=== PATIENT | male | born 1950 | race Caucasian/White ===

== ENCOUNTER → 2017-06-04 11:27 | Outpatient (CLI) | payer MEDICARE, OTHER, SELFPAY ==
--- NOTE | 2017-06-04 11:37 | XR_ITS ---
XR chest 2V HISTORY: Bronchitis ITS.REASON: HX PNEUMOTHORAX ORDERING PHYSICIAN: Marybeth Soria MD PATIENT AGE: 67 years COMPARISON: None available FINDINGS: The cardiomediastinal silhouette and pulmonary vascularity are within normal limits. No lobar consolidation or collapse. There is some coarsening of the bronchovascular markings in the perihilar region on the left chronic in nature. No acute bony anomalies. Degenerative changes are present in the thoracic spine. IMPRESSION: Chronic coarsening of the bronchovascular markings, no acute finding
== END ==
PROVIDERS: PCP Family Medicine; Visit Provider Family Medicine
DX: Z87.09 Personal history of other diseases of the respiratory system (principal)
CPT/HCPCS: 71046

== ENCOUNTER → 2019-04-07 15:49 | Outpatient (CLI) | payer MEDICARE, SELFPAY ==
--- NOTE | 2019-04-07 16:19 | XR_ITS ---
PROCEDURE: XR CHEST 2V CLINICAL HISTORY: FORMER SMOKER,RECENT BRONCHITIS Bronchitis, cough, smoker COMPARISON: CXR CHEST(2 VIEWS-NOT PORTABLE) from 10/19/2015 CXR CHEST(2 VIEWS-NOT PORTABLE) from 11/02/2015 CXR CHEST(2 VIEWS-NOT PORTABLE) from 11/08/2015 CXR2V XR chest 2V from 06/04/2017 FINDINGS: The cardiomediastinal silhouette and pulmonary vascularity are within normal limits. COPD with coarsening of the bronchovascular markings. Interstitial markings are somewhat more prominent on the left suggesting wispy infiltrate in the left upper lobe Degen degenerative changes thoracic spine. IMPRESSION: COPD with wispy left upper lobe infiltrate. Dictated by: Toribio Hunter MD 04/13/2019 11:38 Electronically signed by Toribio Hunter MD in [place] 04/13/2019 11:38
== END ==
PROVIDERS: PCP Family Medicine; Visit Provider Family Medicine
DX: Z01.818 Encounter for other preprocedural examination (principal)
CPT/HCPCS: 71046

== ENCOUNTER → 2019-04-15 13:54 | Outpatient (CLI) | payer MEDICARE, OTHER, SELFPAY ==
--- NOTE | 2019-04-15 13:57 | CT_ITS ---
PROCEDURE: CT CHEST WO/W CON CLINCAL INDICATION: ABNORMAL CXR, LUNG INFECTION Former smoker, bronchitis, cough COMPARISON: No exams were available for comparison TECHNIQUE: IV Contrast: 75ml Optiray 350 Axial images obtained with sagittal and coronal reformats. All CT scans at the facility use one or more dose reduction, viz: automated exposure control, ma/kV adjustment per patient size (including targeted exams where dose is matched to indication, i.e. head), or iterative reconstruction technique. FINDINGS: HEART,AORTA,PULMONARY ARTERIES coronary artery calcifications MEDIASTINAL AND HILAR STRUCTURES: There is increased soft tissue density in the hilar regions on both sides in the peribronchial region. This may only be related to small lymph nodes. Follow-up however is suggested to confirm stability. LUNGS: There are scattered heterogeneous areas of patchy infiltrates in both upper lobes with a somewhat reticular pattern. Small pneumatocele is present in the right middle lobe and there are small pneumatocele is in the right posterior costophrenic sulcus. PLEURAL SPACES: No significant effusion. No evidence of pneumothorax. BONY STRUCTURES: Degenerative changes thoracic spine LYMPH NODES: Mildly prominent perihilar lymph nodes UPPER ABDOMEN: Unremarkable. ADDITIONAL FINDINGS: No other significant abnormalities. IMPRESSION: There are scattered patchy areas of reticular infiltrates in both upper lobes. This could be inflammatory or infectious. Interstitial pneumonitis is considered. Mildly prominent perihilar lymph nodes. Recommend 3 month follow-up to confirm stability. Dictated by: Toribio Hunter MD 04/16/2019 09:19 Electronically signed by Toribio Hunter MD in [place] 04/16/2019 09:19
[2019-04-15 15:32] LABS: Blood Urea Nitrogen 23 mg/dL (7-18); Creatinine,Serum 1.15 mg/dL (0.70-1.30); Estimated Glomerular Filt Rate 64 ml/min (>60); GFR (African American) 77 ML/MIN (>60)
== END ==
PROVIDERS: PCP Family Medicine; Visit Provider Family Medicine
DX: R93.89 Abnormal findings on diagnostic imaging of other specified body structures (principal); J18.9 Pneumonia, unspecified organism
CPT/HCPCS: 36415; 71270; 82565; 84520; Q9967

== ENCOUNTER 2019-06-06 10:02 | Inpatient (IN) ==
--- NOTE | 2019-06-06 10:11 | Emergency Department Note ---
ED Disposition Clinical Impression: Pleuritic chest pain, Failure of outpatient treatment, SIRS (systemic inflammatory response syndrome) Bilateral pneumonia Qualifiers: Pneumonia type: due to unspecified organism Lung location: upper lobe of lung Qualified Code(s): J18.9 - Pneumonia, unspecified organism Left lower lobe pneumonia Qualifiers: Pneumonia type: due to unspecified organism Qualified Code(s): J18.9 - Pneumonia, unspecified organism Disposition: Admitted as Observation Condition on Discharge: Fair Additional Instructions: He was admitted to the floor for observation. Under Dr. Celestin service Time of Disposition: 12:27 - Critical Care Critical Care Time: Yes Attestation: On , the high probability of a clinically significant, sudden or life threatening deterioration of the following system(s) required my full and direct attention, intervention and personal management. The time I documented below is in addition to time spent performing reported procedures but includes the follo wing listed in this critical care notation. Total Critical Care Time: 30 Vital system(s) involved:: Respiratory Failure My critical care processes included: Assessment & monitoring of V/S, Initial and Re-exams, Data Review/Interpretation, Coordinating Care, Medication Orders and management, Documentation Medical Decision Making - Jerel Inquiry Pt receiving controlled substance: No Vital Signs: 06/06/19 10:03 06/06/19 11:05 06/06/19 11:11 Temperature 98.3 F 99.5 F Temperature Source Oral Oral Pulse Rate [Right Brachial] 87 84 Respiratory Rate 18 20 Blood Pressure [Right Arm] 180/80 H 142/82 H Blood Pressure Mean [Right Arm] 113 102 Blood Pressure Source [Right Arm] Automatic Cuff Blood Pressure Position [Right Arm] Sitting 02 Sat by Pulse Oximetry 96 96 Oxygen Delivery Method Room Air 06/06/19 11:24 Temperature 100.4 F H Temperature Source Oral Pulse Rate [Right Brachial] 82 Respiratory Rate 18 Blood Pressure [Right Arm] 138/91 H Blood Pressure Mean [Right Arm] 106 Blood Pressure Source [Right Arm] Blood Pressure Position [Right Arm] 02 Sat by Pulse Oximetry 96 Oxygen Delivery Method - Lab Data Lab results reviewed: Yes: I reviewed the patient's lab results. Lab Results 06/06/19 10:05: WBC 13.2 H, RBC 4.22 L, Hgb 13.6 L, Hct 42.3, MCV 100.2 H, MCH 32.1 H, MCHC 32.1, RDW 14.0, Plt Count 262, MPV 7.4, Neut % (Auto) 76.6, Lymph % (Auto) 12.8, Brule % (Auto) 6.9, Eos % (Auto) 3.3, Baso % (Auto) 0.3, Neut # (Auto) 10.1 H, Lymph # (Auto) 1.7, Brule # (Auto) 0.9, Eos # (Auto) 0.4, Baso # (Auto) 0.0 06/06/19 10:05: Sodium 135 L, Potassium 4.0, Chloride 98, Carbon Dioxide 27, Anion Gap 14.0, BUN 16, Creatinine 0.80, Estimated Creat Clear 97, Estimated GFR 96, Est GFR ( Amer) 117, Glucose 121 H, Calcium 9.4, Total Bilirubin 0.8, AST 28, ALT 18, Alkaline Phosphatase 77, Troponin I < 0.01, Total Protein 8.4 H, Albumin 4.5, Globulin 3.9 H, Albumin/Globulin Ratio 1.2 06/06/19 10:30: Influenza Type A Ag Negative, Influenza Type B Ag Negative 06/06/19 10:30: Group A Strep Rapid Negative 06/06/19 11:00: Lactate 1.0 Result diagrams: 06/06/19 10:05 06/06/19 10:05 Orders (Tests/Meds): ED MEDICATIONS Generic Name Dose Route Start Last Admin Trade Name Freq PRN Reason Stop Dose Admin Azithromycin 500 mg/ Sodium 250 mls @ 250 mls/hr 06/06/19 11:00 06/06/19 11:10 Chloride IV 06/20/19 10:59 250 mls/hr Q24H OPAL Administration Protocol Discontinued Medications Generic Name Dose Route Start Last Admin Trade Name Freq PRN Reason Stop Dose Admin Ceftriaxone Sodium 1 gm/ 50 mls @ 100 mls/hr 06/06/19 10:52 06/06/19 11:00 Sodium Chloride IV 06/06/19 11:21 100 mls/hr ONCE STA Administration Protocol Ioversol 70 ml 06/06/19 10:42 06/06/19 10:43 Rad-Optiray 350 150ml Vial IV 06/06/19 10:43 70 ml ONCE ONE Administration Sodium Chloride 50 ml 06/06/19 10:42 06/06/19 10:43 Rad-Ns 50ml Vial IV 06/06/19 10:43 50 ml ONCE ONE Administration Sodium Chloride 10 ml 06/06/19 10:42 06/06/19 10:43 Rad-Saline Flush 10ml Syringe IV 06/06/19 10:43 10 ml ONCE ONE Administration ORDERS Category Date Time Status XR ribs LT 2V Stat Exams 06/06/19 10:12 Taken SARS-CoV-2, MARY Stat Lab 06/06/19 11:53 Ordered Troponin I Q3H Lab 06/06/19 13:15 Ordered Troponin I Q3H Lab 06/06/19 16:15 Ordered Troponin I Q3H Lab 06/06/19 19:15 Ordered Troponin I Q3H Lab 06/06/19 22:15 Ordered Blood Culture Stat Micro 06/06/19 11:00 Received Strep Screen Confirmation Stat Micro 06/06/19 10:30 Received - CT Data CT Scan: Chest Time Received: 12:[address] Reviewed: Yes: I have reviewed the patient's CT results Findings Narrative: CT ANGIO CHEST CLINCIAL INDICATION: r/o PE Left anterior chest pain former smoker, bronchitis, cough COMPARISON: CT CHEST WO/W CON from 04/15/2019 TECHNIQUE: IV Contrast: 70ML OPTIRAY 350 Axial images obtained with sagittal and coronal reformats. All CT scans at the facility use one or more dose reduction, viz: automated exposure control, ma/kV adjustment per patient size (including targeted exams where dose is matched to indication, i.e. head), or iterative reconstruction technique. FINDINGS: HEART AND MEDIASTINAL STRUCTURES: Pulmonary arterial opacification is somewhat limited. No definite evidence of pulmonary embolus. No evidence of aortic aneurysm or dissection. There are coronary artery calcifications. There are mildly prominent right hilar lymph nodes not significantly changed. LUNGS AND PLEURAL SPACES: There remains scattered mosaic ground-glass attenuation with scattered areas of septal thickening. These findings appear similar compared to the previous exam in the upper lobes. Scattered pneumatocele is a are also noted as before. There is infiltrate in the left lung base posteriorly which has developed in the interval. The BONY STRUCTURES: Degenerative changes of the spine. No lytic or blastic process. No evidence of acute rib fracture UPPER ABDOMEN: There is high-grade stenosis of the ostium of the celiac artery of greater than 50 percent as well as atheromatous calcific plaque of the superior mesenteric artery ADDITIONAL FINDINGS: No other significant abnormalities. IMPRESSION: 1. Chronic interstitial lung disease with scattered areas of mosaic ground-glass attenuation in the upper lobes with septal thickening and scattered bulla which are not significantly changed. 2. Left lower lobe pneumonia posteriorly. 3. 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 - Physician Consults Physician Consulted: Dr. Webster Time: 12:15 Reason -: Admission, Pt condition Comment/Response: Discussed with Dr. Webster regarding the patient and planned to get the patient admitted to the droplet isolation in negative pressure room for possible coronavirus 19 suspected pneumonitis with acute dyspnea and failure of outpatient management. - Reevaluation(s) Time: 11:00 Reevaluation #1: Patient seems to have spiking of his temperature. His temperature went up to 100.4 degrees while here in the emergency department. The patient was kept in AirDrop precautions. He was wearing mask. Reevaluation #2: Patient has been stable while in the emergency department. He still has acute pleuritic type chest pain on deep inspiration. We discussed the lab findings and the x-ray as well as CT scan finding with the patient. Plan to admit the patient for bilateral pneumonia with failed outpatient management. Plan to keep the patient in isolation for possible coronavirus 19 suspicion. General Adult HPI - General Chief complaint: PAIN Stated complaint: LT RIB PAIN Time Seen by Provider: 06/06/19 10:10 Mode of Arrival: Wheelchair Limitations: No Limitations Description of Symptoms (Recalled from ER Triage Doc. by RN): PT C/O LT RIB PAIN UPON INSPIRATION SINCE YESTERDAY. PT ADVISES THAT THE PAIN HAS BEEN CONSTANT AND IS ONLY WITH INSPIRATION. PT ALSO ADVISES THAT HE HAS BRONCHITIS AND HAS HAD A COUGH. PT DENIES FEVER OR SOA. - History of Present Illness HPI narrative: Pt presents to the ER for having pain in the lower left chest and the lung area for the last 2 days. She states every time he takes a deep breath it has been hurting him on the left lower chest wall since early this morning. The pain has been getting worse. Denies having any fever. He is not able to take deep breaths due to the pain in the left lower chest wall everytime he is taking deep inspiration. He complains of shortness of breath due to the same. He states he has been on medication for bronchitis for the last 7 to 10 days. He denies being outside [place]. He denies being in contact with coronavirus patient directly. He has been to [facility] for right hip replacement after which he was discharged home in 3 days . He was on home physical and occupational therapy for 2 weeks. He has been able to ambulate for the last 7 to 10 days. Patient denies having fever or chills. Having nausea or vomiting. - Related Data Home Medications Medication Instructions Recorded Confirmed No Known Home Medications 06/06/19 06/06/19 Allergies Allergy/AdvReac Type Severity Reaction Status Date / Time No Known Allergies Allergy Verified 06/06/19 10:09 [facility] History - Hepatitis A Screen Drug use history?: No High risk sexual behaviors?: No History of sexually transmitted infection?: No Currently employed?: No Childcare worker?: No Do you have indoor plumbing?: Yes Do you have electricity?: Yes Attestation statement:: This patient has been screened for Hepatitis A risk factors. I have reviewed the patient's past medical history: Yes Medical History: Denies:: Diabetes Mellitus Type 1, Diabetes Mellitus Type 2 - Social History Smoking Status: Former smoker Tobacco Type: cigarettes #Yrs smoked (if former smoker): 2,007 Smoking End Date: 04/29/2006 Alcohol Intake: never Occupational Status: other ROS Obtained: Yes All systems reviewed & no additional complaints Physical Exam - General General appearance: alert, in no apparent distress - Head Head exam: atraumatic, normocephalic, normal inspection - Eye Eye exam: Present: normal appearance, PERRL, EOMI - ENT ENT exam: Present: normal exam, normal oropharynx, mucous membranes moist, normal external ear exam, other (bilateral tympanic membrane congested and bulging.) - Neck Neck exam: Present: normal inspection, full ROM, trachea midline - Chest Chest inspection: Present: normal inspection, symmetric chest wall rise. Absent: tenderness - Respiratory Respiratory exam: Present: other (Mild degree of coarse breath sounds bilaterally. Worse in the lower zone than the upper part of the lungs. Patient is not able to take deep breaths due to persistent pain on inspiration. He seems to have pleurisy type pain on the left lower zone lung field.). Absent: respiratory distress - Expanded Respiratory Exam Location: Lower: rhonchi (Bilateral coarse rhonchi.) - Cardiovascular Cardiovascular exam: Present: regular rate, normal rhythm. Absent: JVD - Abdominal Exam Abdominal exam: Present: soft, normal bowel sounds. Absent: distention, tenderness, guarding - Extremities Exam Extremities exam: Present: normal inspection, full ROM, normal capillary refill. Absent: calf tenderness - Back Exam Back exam: Present: normal inspection, full ROM. Absent: tenderness - Neurological Exam Neurological exam: Present: alert, oriented X3, CN II-XII intact - Psychiatric Psychiatric exam: Present: normal affect, normal mood - Skin Skin exam: Present: warm, dry, intact, normal color
[2019-06-06 10:20] LABS: Chloride 98 mmol/L (98-107); Sodium 135 mmol/L (136-145)
[2019-06-06 10:23] LABS: Alanine Aminotransferase 18 U/L (12-78); Albumin Level 4.5 g/dl (3.5-5.0); Albumin/Globulin Ratio 1.2 (1.1-1.8); Alkaline Phosphatase 77 U/L (38-126); Aspartate Amino Transferase 28 U/L (17-59); Bilirubin,Total 0.8 mg/dl (0.2-1.3); Blood Urea Nitrogen 16 mg/dl (9-20); Calcium 9.4 mg/dl (8.4-10.2); Carbon Dioxide 27 mmol/L (22.0-30.0); Globulin 3.9 g/dL (1.3-3.2); Glucose 121 mg/dl (74-100); Total Protein,Serum 8.4 g/dl (6.3-8.2)
[2019-06-06 10:28] LABS: Basophils % 0.3 % (0.1-2.0); Eosinophils # 0.4 K/mm3 (0.0-0.4); Eosinophils % 3.3 % (0.1-12.0); Hematocrit 42.3 % (42.0-52.0); Hemoglobin 13.6 g/dL (14.1-18.0); Lymphocytes # 1.7 K/mm3 (0.7-4.5); Lymphocytes % 12.8 % (10-50); Mean Corpuscular HGB Conc 32.1 g/dL (31.8-35.4); Mean Corpuscular Volume 100.2 fl (80-94); Mean Platelet Volume 7.4 fl (7.4-10.4); Monocytes # 0.9 K/mm3 (0.1-1.0); Monocytes % 6.9 % (1.7-9.3); Neutrophils # 10.1 K/mm3 (1.8-7.8); Neutrophils % 76.6 % (37.0-80.0); Platelet Count 262 K/mm3 (142-424); Red Blood Count 4.22 M/mm3 (4.60-6.20); White Blood Count 13.2 K/mm3 (4.8-10.8)
[2019-06-06 12:33] LABS: Coronavirus 229E Not Detected (NotDetected); Coronavirus NL63 Not Detected (NotDetected); Coronavirus OC43 Not Detected (NotDetected); Coronovirus HKU1,PCR Not Detected (NotDetected)
[2019-06-06 12:44] LABS: C-Reactive Protein 71.3 mg/L (0-4)
--- NOTE | 2019-06-06 17:00 | History & Physical Report ---
*Admission Date: 06/06/19 *Chief complaint: SOA, cough, fever *History of present illness: Mr. Khan is a 69-year-old male with recent right hip arthroplasty the end of April who presented to his primary care provider today due to acute onset over the past 2 days of left-sided chest pain with deep inspiration. When he presented to the ER he was complaining of pain in the left lower anterior chest with deep inspiration and intermittent cough that is somewhat productive. Work- up consisted of CT chest, and labs with normal troponin, leukocytosis, and CT findings of left lower lobe along with patchy bilateral groundglass opacifications consolidation, and upper lobes. ER initially contacted medicine for admission with the additional information of the patient having failed 7 to 10 days of treatment for bronchitis prior to presenting today. Reportedly had negative rapid flu and strep swabs. Patient was admitted with an abundance of concern for potential respiratory infection including coronavirus 19. Comprehensive respiratory panel was performed, barry test obtained in the ED. Patient admitted to negative pressure room. After assessing the patient once he got to the floor, history obtained was somewhat different. Nursing and physician staff entered room and full PPE including face shield, in 95 mask, protective gown, and gloves. Dedicated stethoscope used for exam. Patient sitting comfortably in bed on 2 L nasal cannula. He reports having his stable cough that he has had for years. Denies any recent fever other than fever present in the ER today. States his symptoms began 2 days ago with pain on deep inspiration. Denies having seen a provider for respiratory symptoms in the past 1 to 2 weeks. Denies having been on any medications for bronchitis in many years. [facility] History I have reviewed the patient's past medical history: Yes Medical History: Denies:: Diabetes Mellitus Type 1, Diabetes Mellitus Type 2 *Have you ever received a pneumonia vaccine?: Yes *Have you received a flu vaccine this season?: Yes Laterality Cases: Bilateral: Total Knee Replacement - *Social History Smoking Status: Former smoker Tobacco Type: cigarettes #Yrs smoked (if former smoker): 2,007 Smoking End Date: 2006 Alcohol Intake: never *Occupational Status:: disabled Housing: house Household Members: spouse, family *Travel in the last 8 weeks: None Family Hx:: Cancer, Coronary Artery Disease, Hypertension Review of Systems - Review of Systems Review of systems:: pertinent systems reviewed and negative unless documented below (14 point review of systems performed, pertinent positives and negatives as per HPI) Meds Home Medications Medication Instructions Recorded Confirmed Type No Known Home Medications 06/06/19 06/06/19 History Allergies Allergy/AdvReac Type Severity Reaction Status Date / Time No Known Allergies Allergy Verified 06/06/19 10:09 Exam Vital signs and Labs for Last 24 Hours: Temp Pulse Resp BP Pulse Ox 99.2 F 89 16 148/74 H 98 06/06/19 16:45 06/06/19 16:45 06/06/19 16:45 06/06/19 16:45 06/06/19 16:45 Laboratory Results - last 24 hr 06/06/19 10:05: WBC 13.2 H, RBC 4.22 L, Hgb 13.6 L, Hct 42.3, MCV 100.2 H, MCH 32.1 H, MCHC 32.1, RDW 14.0, Plt Count 262, MPV 7.4, Neut % (Auto) 76.6, Lymph % (Auto) 12.8, Major % (Auto) 6.9, Eos % (Auto) 3.3, Baso % (Auto) 0.3, Neut # (Auto) 10.1 H, Lymph # (Auto) 1.7, Major # (Auto) 0.9, Eos # (Auto) 0.4, Baso # (Auto) 0.0 06/06/19 10:05: Sodium 135 L, Potassium 4.0, Chloride 98, Carbon Dioxide 27, Anion Gap 14.0, BUN 16, Creatinine 0.80, Estimated Creat Clear 97, Estimated GFR 96, Est GFR ( Amer) 117, Glucose 121 H, Calcium 9.4, Total Bilirubin 0.8, AST 28, ALT 18, Alkaline Phosphatase 77, Troponin I < 0.01, Total Protein 8.4 H, Albumin 4.5, Globulin 3.9 H, Albumin/Globulin Ratio 1.2 06/06/19 10:05: C-Reactive Protein 71.3 H, NT-Pro-B Natriuret Pep 74.7 06/06/19 10:05: ESR 48 H 06/06/19 10:30: Influenza Type A Ag Negative, Influenza Type B Ag Negative 06/06/19 10:30: Group A Strep Rapid Negative 06/06/19 11:00: Lactate 1.0 06/06/19 11:53: Chlamy pneumoniae PCR Not detected, Adenovirus (PCR) Not detected, B. pertussis DNA (PCR) Not detected, Coronavirus OC43 (PCR) Not detected, Coronavirus HKU1 (PCR) Not detected, Coronavirus 229E (PCR) Not detected, Coronavirus NL63 (PCR) Not detected, Human Metapneumovir PCR Not detected, Influenza A (H1) PCR Not detected, Influ A (H1N1/09) PCR Not detected, Influenza A (H3) PCR Not detected, Influenza Type A (PCR) Not detected, Influenza Type B (PCR) Not detected, M. pneumoniae (PCR) Not detected, Parainfluenza 1 (PCR) Not detected, Parainfluenza 2 (PCR) Not detected, Parainfluenza 3 (PCR) Not detected, Parainfluenza 4 (PCR) Not detected, RSV (PCR) Not detected, Entero/Rhino (PCR) Not detected I & O for Last 24 hours: Intake & Output 06/03/19 06/04/19 06/05/19 06/06/19 23:59 23:59 23:59 23:59 Intake Total 865 / 865 Output Total 500 / 500 Balance 365 / 365 Weight 97.2 kg - Constitutional no acute distress, obese - *Routine HEENT Exam Head: Present: normocephalic Eye: Present: EOMI, PERRL ENT: Present: mucous membranes moist - *Routine Neck Exam Present: supple. Absent: lymphadenopathy - Routine Chest/Breast/Axilla Exam Comments: Well-healed scar below left pectoral muscle - *Routine Respiratory Exam Comments: Clear breath sounds in right lung field, crackles on inspiration and left lower lobe best heard mid axillary line and posterior lung field. No wheeze or rhonchi, exam performed on 2 L nasal cannula - *Routine Cardiovascular Exam Present: RRR - *Routine Abdominal Exam Present: soft, normoactive bowel sounds. Absent: tenderness - *Routine Extremities Exam Absent: cyanosis, clubbing, edema Comments: Right lateral hip with clean dry and intact incision from previous surgery, approximately 6 inches in length - *Routine Skin Exam Present: warm. Absent: rash - *Routine Neurological Exam Present: alert, oriented X3 Assessment and Plan (1) Bilateral pneumonia Current visit: Yes Status: Acute Qualifiers: Pneumonia type: due to unspecified organism Lung location: upper lobe of lung Qualified Code(s): J18.9 - Pneumonia, unspecified organism Category: Medical Code(s): J18.9 - Pneumonia, unspecified organism (2) Left lower lobe pneumonia Current visit: Yes Status: Acute Qualifiers: Pneumonia type: due to unspecified organism Qualified Code(s): J18.9 - Pneumonia, unspecified organism Category: Medical Code(s): J18.9 - Pneumonia, unspecified organism (3) Pleuritic chest pain Current visit: Yes Status: Acute Category: Medical Code(s): R07.81 - Pleurodynia (4) Sepsis Current visit: Yes Status: Acute Category: Medical Code(s): A41.9 - Sepsis, unspecified organism (5) HCAP (healthcare-associated pneumonia) Current visit: Yes Status: Acute Category: Medical Code(s): J18.9 - Pneumonia, unspecified organism - Assessment and plan all Dx Assessment and Plan for all problems:: 69-year-old gentleman with a recent hip replacement less than a month ago who presented to the ER with 2 days of worsening pleuritic chest pain, development of fever today, shortness of breath. Imaging and labs consistent with lobar pneumonia. Imaging also consistent however with some bilateral patchy upper lobe groundglass opacities. Image review shows that these have been present before though history is not clear based on what was communicated to admitting service from ER versus patient. Currently has coronavirus 19 test pending. We will continue to keep patient on isolation. At this time we will treat him as though he is a healthcare acquired pneumonia. Additionally have started prophylactic Lovenox given risk for DVT with recent arthroplasty. Monitor for improvement over the next 24 to 48 hours with IV antibiotics. If patient's fever resolves, is able to transition oral antibiotics, and has no further decompensation of his respiratory status, will meet criteria for discharge home. Further management such as a self-isolation, quarantine, other considerations for medications pending coronavirus test results. At this time continues to require inpatient management. Regular diet. Ambulate as tolerated. Aggressive pulmonary toilet, provided with incentive spirometer
[2019-06-07 05:43] LABS: Basophils % 0.2 % (0.1-2.0); Eosinophils # 0.3 K/mm3 (0.0-0.4); Eosinophils % 2.4 % (0.1-12.0); Hematocrit 36.9 % (42.0-52.0); Hemoglobin 12.3 g/dL (14.1-18.0); Lymphocytes # 1.3 K/mm3 (0.7-4.5); Lymphocytes % 10.7 % (10-50); Mean Corpuscular HGB Conc 33.3 g/dL (31.8-35.4); Mean Corpuscular Volume 98.9 fl (80-94); Mean Platelet Volume 7.5 fl (7.4-10.4); Monocytes # 0.8 K/mm3 (0.1-1.0); Monocytes % 6.5 % (1.7-9.3); Neutrophils # 9.4 K/mm3 (1.8-7.8); Neutrophils % 80.3 % (37.0-80.0); Platelet Count 209 K/mm3 (142-424); Red Blood Count 3.73 M/mm3 (4.60-6.20); Red Cell Distribution Width 13.9 % (11.5-17.5); White Blood Count 11.7 K/mm3 (4.8-10.8)
[2019-06-07 05:48] LABS: Calcium 8.8 mg/dl (8.4-10.2)
--- NOTE | 2019-06-07 08:01 | Pharmacy Consult Notes ---
[facility] Pharmacy VTE Monitoring - Patient Demographics Admission date: 06/07/19 Report Date: 06/07/19 Time: 08:01 Allergies/Adverse Reactions: Patient Allergies No Known Allergies Allergy (Verified 06/06/19 10:09) Height: 1.8 m Weight: 97.2 kg Patient Problems: Current Active Problems Bilateral pneumonia (Acute) Left lower lobe pneumonia (Acute) Pleuritic chest pain (Acute) Failure of outpatient treatment (Acute) SIRS (systemic inflammatory response syndrome) (Acute) Sepsis (Acute) HCAP (healthcare-associated pneumonia) (Acute) - VTE Risk Labs: VTE Related Lab Results Hgb 12.3 g/dL (14.1-18.0) L 06/07/19 05:30 Hct 36.9 % (42.0-52.0) L 06/07/19 05:30 Plt Count 209 K/mm3 (142-424) 06/07/19 05:30 BUN 15 mg/dl (9-20) 06/07/19 05:30 Creatinine 0.70 mg/dl (0.66-1.25) 06/07/19 05:30 Estimated Creat Clear 99 mL/min (50-200) 06/07/19 05:30 VTE Score: 1 VTE Risk Level: Very Low Risk - Prophylaxis Types of VTE Prophylaxis: Pharmacological Location of Applied Device: Not Applicable Pharmacologic Type: Enoxaparin (LOVENOX ORDERED)
--- NOTE | 2019-06-07 08:04 | Progress Note ---
Internal Medicine - PN: Subj *Date: 06/07/19 *Time: 08:02 Interval history: Patient has no complaints this morning and desires discharge. When asked how he is feeling he reports "fine as frog hair". He denies shortness of breath. He states that since his evaluation and treatment through the emergency department he is noted significant improvement in the left-sided chest discomfort as well as his ability to take a deep breath. Exam Vital signs and Labs for Last 24 Hours: Temp Pulse Resp BP Pulse Ox 98.8 F 76 16 140/66 98 06/07/19 04:33 06/07/19 04:33 06/07/19 04:33 06/07/19 04:33 06/07/19 04:33 Laboratory Results - last 24 hr 06/06/19 10:05: WBC 13.2 H, RBC 4.22 L, Hgb 13.6 L, Hct 42.3, MCV 100.2 H, MCH 32.1 H, MCHC 32.1, RDW 14.0, Plt Count 262, MPV 7.4, Neut % (Auto) 76.6, Lymph % (Auto) 12.8, Shannon % (Auto) 6.9, Eos % (Auto) 3.3, Baso % (Auto) 0.3, Neut # (Auto) 10.1 H, Lymph # (Auto) 1.7, Shannon # (Auto) 0.9, Eos # (Auto) 0.4, Baso # (Auto) 0.0 06/06/19 10:05: Sodium 135 L, Potassium 4.0, Chloride 98, Carbon Dioxide 27, Anion Gap 14.0, BUN 16, Creatinine 0.80, Estimated Creat Clear 97, Estimated GFR 96, Est GFR ( Amer) 117, Glucose 121 H, Calcium 9.4, Total Bilirubin 0.8, AST 28, ALT 18, Alkaline Phosphatase 77, Troponin I < 0.01, Total Protein 8.4 H, Albumin 4.5, Globulin 3.9 H, Albumin/Globulin Ratio 1.2 06/06/19 10:05: C-Reactive Protein 71.3 H, NT-Pro-B Natriuret Pep 74.7 06/06/19 10:05: ESR 48 H 06/06/19 10:30: Influenza Type A Ag Negative, Influenza Type B Ag Negative 06/06/19 10:30: Group A Strep Rapid Negative 06/06/19 11:00: Lactate 1.0 06/06/19 11:53: Chlamy pneumoniae PCR Not detected, Adenovirus (PCR) Not detected, B. pertussis DNA (PCR) Not detected, Coronavirus OC43 (PCR) Not detected, Coronavirus HKU1 (PCR) Not detected, Coronavirus 229E (PCR) Not detected, Coronavirus NL63 (PCR) Not detected, Human Metapneumovir PCR Not detected, Influenza A (H1) PCR Not detected, Influ A (H1N1/09) PCR Not detected, Influenza A (H3) PCR Not detected, Influenza Type A (PCR) Not detected, Influenza Type B (PCR) Not detected, M. pneumoniae (PCR) Not detected, Parainfluenza 1 (PCR) Not detected, Parainfluenza 2 (PCR) Not detected, Parainfluenza 3 (PCR) Not detected, Parainfluenza 4 (PCR) Not detected, RSV (PCR) Not detected, Entero/Rhino (PCR) Not detected 06/07/19 05:30: WBC 11.7 H, RBC 3.73 L, Hgb 12.3 L, Hct 36.9 L, MCV 98.9 H, MCH 33.0 H, MCHC 33.3, RDW 13.9, Plt Count 209, MPV 7.5, Neut % (Auto) 80.3 H, Lymph % (Auto) 10.7, Shannon % (Auto) 6.5, Eos % (Auto) 2.4, Baso % (Auto) 0.2, Neut # (Auto) 9.4 H, Lymph # (Auto) 1.3, Shannon # (Auto) 0.8, Eos # (Auto) 0.3, Baso # (Auto) 0.0 06/07/19 05:30: Sodium 132 L, Potassium 4.0, Chloride 102, Carbon Dioxide 23, Anion Gap 11.0, BUN 15, Creatinine 0.70, Estimated Creat Clear 99, Estimated GFR 112, Est GFR ( Amer) 136, Glucose 126 H, Calcium 8.8 I & O for Last 24 hours: Intake & Output 06/04/19 06/05/19 06/06/19 06/07/19 11:59 11:59 11:59 11:59 Intake Total 2369 / 2369 Output Total 1000 / 1000 Balance 1369 / 1369 Weight 212 lb 214 lb 4.629 oz Narrative: Patient is in no distress. Chest exam reveals distant breath sounds throughout diminished breath sounds at the left base. Heart has a regular rate and rhythm. There is no chest wall tenderness. Assessment and Plan (1) Left lower lobe pneumonia Current visit: Yes Status: Acute Qualifiers: Pneumonia type: due to unspecified organism Qualified Code(s): J18.9 - Pneumonia, unspecified organism Category: Medical Code(s): J18.9 - Pneumonia, unspecified organism (2) Pleuritic chest pain Current visit: Yes Status: Acute Category: Medical Code(s): R07.81 - Pleurodynia (3) Sepsis Current visit: Yes Status: Acute Category: Medical Code(s): A41.9 - Sepsis, unspecified organism (4) HCAP (healthcare-associated pneumonia) Current visit: Yes Status: Acute Category: Medical Code(s): J18.9 - Pneumonia, unspecified organism - Assessment and plan all Dx Assessment and Plan for all problems:: Patient has improved. It does not appear that he has any oxygen requirement. Supplemental oxygen has been removed and IV fluids will be discontinued this morning. Patient will be allowed to ambulate within his room and we will reassess how he feels with an increase in activity. Patient does not require any significant oxygen support he will be discharged to home.
--- NOTE | 2019-06-07 08:09 | Discharge Summary ---
General - General Admission date:: 06/06/19 Discharge date: 06/07/19 HPI HPI: Mr. Khan is a 69-year-old male with recent right hip arthroplasty the end of April who presented to his primary care provider today due to acute onset over the past 2 days of left-sided chest pain with deep inspiration. When he presented to the ER he was complaining of pain in the left lower anterior chest with deep inspiration and intermittent cough that is somewhat productive. Work- up consisted of CT chest, and labs with normal troponin, leukocytosis, and CT findings of left lower lobe along with patchy bilateral groundglass opacifications consolidation, and upper lobes. ER initially contacted medicine for admission with the additional information of the patient having failed 7 to 10 days of treatment for bronchitis prior to presenting today. Reportedly had negative rapid flu and strep swabs. Patient was admitted with an abundance of concern for potential respiratory infection including coronavirus 19. Comprehensive respiratory panel was performed, barry test obtained in the ED. Patient admitted to negative pressure room. After assessing the patient once he got to the floor, history obtained was somewhat different. Nursing and physician staff entered room and full PPE including face shield, in 95 mask, protective gown, and gloves. Dedicated stethoscope used for exam. Patient sitting comfortably in bed on 2 L nasal cannula. He reports having his stable cough that he has had for years. Denies any recent fever other than fever present in the ER today. States his symptoms began 2 days ago with pain on deep inspiration. Denies having seen a provider for respiratory symptoms in the past 1 to 2 weeks. Denies having been on any medications for bronchitis in many years. Hospital Course Hospital Course: Patient met Sirs criteria and had documented left lower lobe pneumonia and was admitted for treatment of bacterial lobar pneumonia. COVID 19 testing was performed as well. Patient had significant improvement in the emergency department after administration of antibiotics. He was admitted into a negative pressure room due to concerns over COVID 19. Chest pain resolved by admission to the floor. By the following morning patient noted significant improvement in ability to take a deep breath as well as pain with inspiration. Patient was monitored for dyspnea at rest, on exertion. After period of observation on room air patient was discharged home. He was advised to self-isolate until his COVID 19 test returns. Objective Vital signs: Temp Pulse Resp BP Pulse Ox 98.8 F 76 16 140/66 98 06/07/19 04:33 06/07/19 04:33 06/07/19 04:33 06/07/19 04:33 06/07/19 04:33 Narrative: Patient was awake and alert sitting up in chair. Chest exam reveals distant breath sounds throughout with diminished sounds at the left base. Heart had a regular rate and rhythm. Abdomen was soft. Lower extremities have no edema Results Labs on day of discharge: Labs from last 24 hours 06/07/19 06/07/19 06/06/19 05:30 05:30 11:53 WBC 11.7 H RBC 3.73 L Hgb 12.3 L Hct 36.9 L MCV 98.9 H MCH 33.0 H MCHC 33.3 RDW 13.9 Plt Count 209 MPV 7.5 Neut % (Auto) 80.3 H Lymph % (Auto) 10.7 Stephenson % (Auto) 6.5 Eos % (Auto) 2.4 Baso % (Auto) 0.2 Neut # (Auto) 9.4 H Lymph # (Auto) 1.3 Stephenson # (Auto) 0.8 Eos # (Auto) 0.3 Baso # (Auto) 0.0 ESR Sodium 132 L Potassium 4.0 Chloride 102 Carbon Dioxide 23 Anion Gap 11.0 BUN 15 Creatinine 0.70 Estimated Creat Clear 99 Estimated GFR 112 Est GFR ( Amer) 136 Glucose 126 H Lactate Calcium 8.8 Total Bilirubin AST ALT Alkaline Phosphatase Troponin I C-Reactive Protein NT-Pro-B Natriuret Pep Total Protein Albumin Globulin Albumin/Globulin Ratio Chlamy pneumoniae PCR Not detected Adenovirus (PCR) Not detected B. pertussis DNA (PCR) Not detected Coronavirus OC43 (PCR) Not detected Coronavirus HKU1 (PCR) Not detected Coronavirus 229E (PCR) Not detected Coronavirus NL63 (PCR) Not detected Human Metapneumovir PCR Not detected Influenza A (H1) PCR Not detected Influ A (H1N1/09) PCR Not detected Influenza A (H3) PCR Not detected Influenza Type A Ag Influenza Type A (PCR) Not detected Influenza Type B Ag Influenza Type B (PCR) Not detected M. pneumoniae (PCR) Not detected Parainfluenza 1 (PCR) Not detected Parainfluenza 2 (PCR) Not detected Parainfluenza 3 (PCR) Not detected Parainfluenza 4 (PCR) Not detected RSV (PCR) Not detected Entero/Rhino (PCR) Not detected Group A Strep Rapid 06/06/19 06/06/19 06/06/19 11:00 10:30 10:30 WBC RBC Hgb Hct MCV MCH MCHC RDW Plt Count MPV Neut % (Auto) Lymph % (Auto) Stephenson % (Auto) Eos % (Auto) Baso % (Auto) Neut # (Auto) Lymph # (Auto) Stephenson # (Auto) Eos # (Auto) Baso # (Auto) ESR Sodium Potassium Chloride Carbon Dioxide Anion Gap BUN Creatinine Estimated Creat Clear Estimated GFR Est GFR ( Amer) Glucose Lactate 1.0 Calcium Total Bilirubin AST ALT Alkaline Phosphatase Troponin I C-Reactive Protein NT-Pro-B Natriuret Pep Total Protein Albumin Globulin Albumin/Globulin Ratio Chlamy pneumoniae PCR Adenovirus (PCR) B. pertussis DNA (PCR) Coronavirus OC43 (PCR) Coronavirus HKU1 (PCR) Coronavirus 229E (PCR) Coronavirus NL63 (PCR) Human Metapneumovir PCR Influenza A (H1) PCR Influ A (H1N1/09) PCR Influenza A (H3) PCR Influenza Type A Ag Negative Influenza Type A (PCR) Influenza Type B Ag Negative Influenza Type B (PCR) M. pneumoniae (PCR) Parainfluenza 1 (PCR) Parainfluenza 2 (PCR) Parainfluenza 3 (PCR) Parainfluenza 4 (PCR) RSV (PCR) Entero/Rhino (PCR) Group A Strep Rapid Negative 06/06/19 06/06/19 06/06/19 10:05 10:05 10:05 WBC RBC Hgb Hct MCV MCH MCHC RDW Plt Count MPV Neut % (Auto) Lymph % (Auto) Stephenson % (Auto) Eos % (Auto) Baso % (Auto) Neut # (Auto) Lymph # (Auto) Stephenson # (Auto) Eos # (Auto) Baso # (Auto) ESR 48 H Sodium 135 L Potassium 4.0 Chloride 98 Carbon Dioxide 27 Anion Gap 14.0 BUN 16 Creatinine 0.80 Estimated Creat Clear 97 Estimated GFR 96 Est GFR ( Amer) 117 Glucose 121 H Lactate Calcium 9.4 Total Bilirubin 0.8 AST 28 ALT 18 Alkaline Phosphatase 77 Troponin I < 0.01 C-Reactive Protein 71.3 H NT-Pro-B Natriuret Pep 74.7 Total Protein 8.4 H Albumin 4.5 Globulin 3.9 H Albumin/Globulin Ratio 1.2 Chlamy pneumoniae PCR Adenovirus (PCR) B. pertussis DNA (PCR) Coronavirus OC43 (PCR) Coronavirus HKU1 (PCR) Coronavirus 229E (PCR) Coronavirus NL63 (PCR) Human Metapneumovir PCR Influenza A (H1) PCR Influ A () PCR Influenza A (H3) PCR Influenza Type A Ag Influenza Type A (PCR) Influenza Type B Ag Influenza Type B (PCR) M. pneumoniae (PCR) Parainfluenza 1 (PCR) Parainfluenza 2 (PCR) Parainfluenza 3 (PCR) Parainfluenza 4 (PCR) RSV (PCR) Entero/Rhino (PCR) Group A Strep Rapid 06/06/19 10:05 WBC 13.2 H RBC 4.22 L Hgb 13.6 L Hct 42.3 MCV 100.2 H MCH 32.1 H MCHC 32.1 RDW 14.0 Plt Count 262 MPV 7.4 Neut % (Auto) 76.6 Lymph % (Auto) 12.8 Stephenson % (Auto) 6.9 Eos % (Auto) 3.3 Baso % (Auto) 0.3 Neut # (Auto) 10.1 H Lymph # (Auto) 1.7 Stephenson # (Auto) 0.9 Eos # (Auto) 0.4 Baso # (Auto) 0.0 ESR Sodium Potassium Chloride Carbon Dioxide Anion Gap BUN Creatinine Estimated Creat Clear Estimated GFR Est GFR ( Amer) Glucose Lactate Calcium Total Bilirubin AST ALT Alkaline Phosphatase Troponin I C-Reactive Protein NT-Pro-B Natriuret Pep Total Protein Albumin Globulin Albumin/Globulin Ratio Chlamy pneumoniae PCR Adenovirus (PCR) B. pertussis DNA (PCR) Coronavirus OC43 (PCR) Coronavirus HKU1 (PCR) Coronavirus 229E (PCR) Coronavirus NL63 (PCR) Human Metapneumovir PCR Influenza A (H1) PCR Influ A (H1N1) PCR Influenza A (H3) PCR Influenza Type A Ag Influenza Type A (PCR) Influenza Type B Ag Influenza Type B (PCR) M. pneumoniae (PCR) Parainfluenza 1 (PCR) Parainfluenza 2 (PCR) Parainfluenza 3 (PCR) Parainfluenza 4 (PCR) RSV (PCR) Entero/Rhino (PCR) Group A Strep Rapid DS: Diagnosis - Discharge Diagnosis (1) Left lower lobe pneumonia Status: Acute (2) Pleuritic chest pain Status: Acute (3) Sepsis Status: Ruled-out (4) COPD (chronic obstructive pulmonary disease) Status: Suspected Discharge Plan - Patient Discharge Instructions ACTIVITY: Continue current activity DIET: continue same diet - Follow up Plan Follow up with: Antoni Celestin MD [Primary Care Provider] - Disposition: Home, Self-Correction Medications: Home Medications Medication Instructions Recorded Confirmed Type Azithromycin [Z-Gabriel 250mg Tab*] 250 mg PO UD DOSE PK #6 tab 06/07/19 Rx Cefdinir [Omnicef 300mg Capsule] 300 mg PO BID #20 cap 06/07/19 Rx Prescriptions/Medication Reconciliation: New Cefdinir [Omnicef 300mg Capsule] 300 mg PO BID #20 cap Azithromycin [Z-Gabriel 250mg Tab*] 250 mg PO UD DOSE PK #6 tab - Problem Reconciliation Problems Reviewed?: Yes
--- NOTE | 2019-06-08 16:15 | Electrocardiograph Report ---
APPROVED REPORT Exam: Resting ECG HR:82 bpm ECG Measurements Heart Rate 82 AXES NH 158 P 40 QRSd 78 QRS 30 QT 358 T50 QTc 418 <Conclusion> Normal sinus rhythm Possible Left atrial enlargement Borderline ECG Electronically signed by : Antoni Martinez, 06/08/2019 16:14:44
== END 2019-06-07 11:15 | disposition home or self-care (01) | DRG 195 ==
LOC: ER 10:02 → 2ND 10:02 → OBSVTOIN 13:10 → 2ND 13:11
PROVIDERS: ADMIT Internal Medicine Adolescent Medicine; ATTEND Family Medicine
CPT/HCPCS: 71020; 71046; 71100; 71275; 80048; 80053; 83605; 83880; 84484; 85025; 85651; 86140; 87040; 87275; 87276; 87430; 87486; 87581; 87633; 87635; 87798; 93005; 96365; 96367; 99285; J0456; Q9967; U0002

== ENCOUNTER → 2022-10-31 13:51 | Outpatient (CLI) | payer MEDICARE, SELFPAY ==
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
== END ==
PROVIDERS: PCP Family Medicine; Visit Provider Family Medicine
DX: R06.02 Shortness of breath (principal)
CPT/HCPCS: 71046

== ENCOUNTER → 2022-11-08 10:14 | Outpatient (CLI) | payer MEDICARE, SELFPAY ==
--- NOTE | 2022-11-08 10:27 | XR_ITS ---
FINAL REPORT TECHNIQUE: Chest PA & Lateral CLINICAL HISTORY: COPD COMPARISON: 10/31/2022 FINDINGS: 2 views of the chest were performed. The heart size is normal. The mediastinum is within normal limits. Bilateral infiltrates are once again noted, essentially unchanged since the prior chest x-ray of 10/31/2022. There are no pleural effusions. There is no pneumothorax. The bony thorax appears intact. IMPRESSION: Bilateral infiltrates, unchanged since 10/31/2022 Reviewed, Interpreted and Dictated by Douglas Gray MD Transcribed by Sirisha Bedolla Authenticated and [facility]
== END ==
PROVIDERS: PCP Family Medicine; Visit Provider Family Medicine
DX: J44.9 Chronic obstructive pulmonary disease, unspecified (principal)
CPT/HCPCS: 71046

== ENCOUNTER → 2022-11-30 06:45 | Outpatient (CLI) | payer MEDICARE, SELFPAY ==
--- NOTE | 2022-11-30 06:51 | CT_ITS ---
FINAL REPORT TECHNIQUE: Axial images through the chest was performed by computed tomography with and without contrast. Sagittal and coronal reformatted images were obtained and reviewed. This study was performed with techniques to keep radiation doses as low as reasonably achievable (ALARA). Individualized dose reduction techniques using automated exposure control or adjustment of mA and/or kV according to the patient's size were employed. CLINICAL HISTORY: CHRONIC COUGH, SOB COMPARISON: 06/06/2019 FINDINGS: There is severe coronary artery calcification. There is mild mediastinal adenopathy which is worse, favor reactive over neoplastic. There is moderate to severe predominantly peripheral interstitial fibrosis with honeycombing. Finding have significantly progressed since the prior. Honeycombing is greatest in the upper lobes. There are patchy ground-glass opacities, may represent alveolitis. IMPRESSION: Significantly interval progression of interstitial fibrosis with honeycombing. Patchy ground-glass opacities, may represent alveolitis. Reviewed, Interpreted and Dictated by Mike Quinonez III, MD Transcribed by Lita Ying Authenticated and [facility][1]
== END ==
PROVIDERS: PCP Family Medicine; Visit Provider Family Medicine
DX: R06.02 Shortness of breath (principal); R05.3 Chronic cough
CPT/HCPCS: 71270; Q9967

== ENCOUNTER 2023-01-21 12:43 | Inpatient (IN) | payer OTHER, MEDICARE, SELFPAY ==
[2023-01-21] VITALS (15 sets, daily range): BP systolic 97–145; BP diastolic 58–83; PULSE 56–96; RESP 18–34; TEMP 36.1–36.6; O2SAT 70–100; BMI 31.8; BMI 26.9
--- NOTE | 2023-01-21 13:06 | CT_ITS ---
FINAL REPORT TECHNIQUE: Axial imaging of the chest is obtained after the administration of contrast. 3-D MIP reformatted images were also obtained and reviewed per PE protocol. CLINICAL HISTORY: hypoxia 70%, weight loss COMPARISON: 11/30/2022 FINDINGS: Evaluation of the peripheral pulmonary arteries is limited by respiratory motion artifact. No central or proximal segmental pulmonary embolus is identified. There is no aortic dissection or intimal flap. There is no axillary lymphadenopathy. There are enlarged mediastinal and bilateral hilar lymph nodes which are unchanged. For example a right hilar lymph node measures 2.8 cm, was 3 cm. There are changes of fibrosis, worse in a subpleural and upper lobe predominance. There has been significant worsening of bilateral ground-glass opacities which could represent pulmonary edema or bilateral pneumonia. There is no pleural or pericardial effusion. No acute osseous abnormality. IMPRESSION: No central segmental pulmonary embolism. However there is limited evaluation of the subsegmental pulmonary arteries. Stable mediastinal and hilar lymphadenopathy. Significant worsening of bilateral ground-glass opacities which could represent pulmonary edema or bilateral pneumonia. Reviewed, Interpreted and Dictated by Karen Dixon MD Transcribed by Humaira Friedman Authenticated and [facility]
--- NOTE | 2023-01-21 13:06 | XR_ITS ---
FINAL REPORT CLINICAL HISTORY: Shortness of breath COMPARISON: 11/08/2022 FINDINGS: A portable view of the chest was obtained. The heart is mildly enlarged. There has been significant interval worsening of bilateral mixed interstitial and alveolar opacities which could represent pulmonary edema, pneumonia, or ARDS. There is no pleural effusion or pneumothorax. IMPRESSION: Significant interval worsening bilateral mixed interstitial and alveolar opacities which could represent pulmonary edema, pneumonia, or ARDS. Reviewed, Interpreted and Dictated by Karen Dixon MD Transcribed by Humaira Friedman Authenticated and [facility]
--- NOTE | 2023-01-21 13:08 | HMH.EDGENADL ---
Discharge Plan Disposition Patient Disposition: Admitted Chief Complaint: Weakness Prescriptions Prescriptions: No Action azithromycin 250 MG tablet 250 mg PO UD DOSE PK Qty: 6 0RF Rx Instructions: Take two (2) tablets today, then one (1) tablet days #2 thru #5 cefdinir 300 MG capsule 300 mg PO BID Qty: 20 0RF Referrals Follow up/Referrals: Marybeth Soria MD [Primary Care Provider] - See instructions Clinical Impressions Clinical Impression: Pulmonary edema, ACS (acute coronary syndrome), Respiratory failure Discharge ED Provider: Shaw Arzate General Adult HPI General Chief complaint: Weakness Stated complaint: soa, weakness, no appetite, stomach pain Time Seen by Provider: 01/21/23 13:00 Mode of Arrival: Wheelchair Source of Information: Patient and Spouse Limitations: No Limitations Description of Symptoms (Recalled from ER Triage Doc. by RN): pt to ed c/o shortness of breath. pt presents with who is the primary source of information. states pt has been seeing pcp for a potential new onset copd and has been referred to pulmonology. states for the last x2 weeks pt has been short of breath with exertion. pt has an inhaler at home but states no relief. states pt has had a decrease in appetite. 3 History of Present Illness HPI narrative: Patient is a 72-year-old male with no chronic past medical history who presents emergency department for evaluation of shortness of breath. History is obtained by patient and at bedside. Patient has had subacute shortness of breath, weight loss, decreased appetite, vague stomach pain. Related Data Previous Rx's Medication Instructions Recorded azithromycin 250 mg tablet 250 mg PO UD DOSE PK #6 tabs 06/07/19 cefdinir 300 mg capsule 300 mg PO BID #20 caps 06/07/19 Allergies Allergy/AdvReac Type Severity Reaction Status Date / Time No Known Allergies Allergy Verified 06/06/19 10:09 [facility] Disclaimer: The information contained in this section may have been updated after the patient was seen, as this information can be updated by other users. Social History Smoking Status: Former smoker tobacco type: cigarettes alcohol intake: never current occupational status: disabled Travel in the last 8 weeks: None household members: spouse and family housing: house ROS Obtained: Yes Systems reviewed as appropriate & no additional complaints except as documented Physical Exam General General appearance: alert Head Head exam: atraumatic and normocephalic Eye Eye exam: Present PERRL and EOMI ENT ENT exam: Present mucous membranes moist Neck Neck exam: Present normal inspection Chest Chest inspection: Present normal inspection and symmetric chest wall rise Respiratory Respiratory exam: Present normal lung sounds bilaterally and respiratory distress Cardiovascular Cardiovascular exam: Present regular rate and normal rhythm Abdominal Exam Abdominal exam: Present soft; Absent tenderness Extremities Exam Extremities exam: Present normal inspection Neurological Exam Neurological exam: Present alert Psychiatric Psychiatric exam: Present normal affect Skin Skin exam: Present warm and dry Medical Decision Making Jerel Inquiry Pt receiving controlled substance: No Vital Signs: 01/21/23 12:58 01/21/23 13:00 01/21/23 14:00 Temperature 97.8 F Temperature Source Oral Pulse Rate 96 H 85 Pulse Rate [Left Radial] 96 H Respiratory Rate 28 H 20 Blood Pressure 107/69 L 115/72 Blood Pressure [Right Arm] 102/59 L Blood Pressure Mean 78 Blood Pressure Mean [Right Arm] 73 02 Sat by Pulse Oximetry 70 L 92 L 93 L Oxygen Delivery Method Room Air Venturi Mask Venturi Mask Lab Data Lab Results 01/21/23 13:40: WBC 10.6, RBC 4.84, Hgb 16.7, Hct 48.7, MCV 100.6 H, MCH 34.5 H, MCHC 34.3, RDW 14.8, Plt Count 213, MPV 8.8, Neut % (Auto) 83.5 H, Lymph % (Auto) 9.3 L, Wayne % (Auto) 6.7, Eos % (Auto)
--- NOTE | 2023-01-21 13:09 | CT_ITS ---
FINAL REPORT TECHNIQUE: Thin section axial images were obtained through the abdomen after intravenous contrast. Reconstruction images were obtained from the axial data. Exam was performed using dose reduction techniques. CLINICAL HISTORY: weight loss, stomach pain COMPARISON: None FINDINGS: The liver is homogeneous. The gallbladder is present. The spleen, adrenal glands, and pancreas are unremarkable. There is no hydronephrosis. There is a hypodense small right renal lesion which may be a cyst.. Abdominal GI tract demonstrates no evidence of small-bowel obstruction. There is no acute abnormality in the abdomen. There is no abdominal lymphadenopathy or ascites. The prostate is mildly enlarged. The bladder is not well visualized due to artifact. The pelvic portions of the GI tract, including the appendix, are without acute abnormality. There is diverticulosis without diverticulitis. There is no pelvic lymphadenopathy or ascites. No acute osseous abnormalities identified. IMPRESSION: No CT evidence of acute intra-abdominal or intrapelvic abnormality. Reviewed, Interpreted and Dictated by Karen Dixon MD Transcribed by Humaira Friedman Authenticated and [facility]
--- NOTE | 2023-01-21 13:25 | ECG_ITS ---
APPROVED REPORT Exam: Resting ECG HR:89 bpm ECG Measurements Heart Rate 89 AXES TX 140 P 26 QRSd 87 QRS 107 QT 370 T -69 QTc 417 Conclusion SINUS RHYTHM POSSIBLE LEFT ATRIAL ENLARGEMENT [-0.1mV P-WAVE IN V1/V2] RIGHT AXIS DEVIATION [QRS AXIS > 100] ST DEVIATION AND MODERATE T-WAVE ABNORMALITY, CONSIDER ANTEROLATERAL ISCHEMIA [-0.1+ mV T-WAVE IN V3-V6] ST DEVIATION AND MODERATE T-WAVE ABNORMALITY, CONSIDER INFERIOR ISCHEMIA [-0.1+ mV T-WAVE IN II/aVF] ABNORMAL ECG UNCONFIRMED REPORT Electronically signed by : Antoni Martinez MD 01/21/2023 17:48:02
--- NOTE | 2023-01-21 13:57 | HMH.ITSTN ---
GFR completion/results were overrode for the use of contrast media by the Physician on a risk vs. benefit situation with this patient.
[2023-01-21 14:00] LABS: VBG Base Excess -7.1 mmol/L (-2.4-2.3); VBG HCO3 18.7 mmol/L (23-30); VBG Oxygen Saturation 66.1 % (50-70); VBG PCO2 35.2 mmol/L (35-51); VBG PH 7.34 mmol/L (7.31-7.41); VBG PO2 38.5 mmol/L (28-40); VBG Total CO2 19.7 mmol/L (23-27)
[2023-01-21 14:13] LABS: Basophils % 0.2 % (0.1-2.0); Eosinophils % 0.3 % (0.1-12.0); Hematocrit 48.7 % (42.0-52.0); Hemoglobin 16.7 g/dL (14.1-18.0); Lymphocytes % 9.3 % (10-50); Mean Corpuscular HGB Conc 34.3 g/dL (31.8-35.4); Mean Corpuscular Hemoglobin 34.5 pg (27.0-31.2); Mean Corpuscular Volume 100.6 fl (80-94); Mean Platelet Volume 8.8 fl (7.4-10.4); Monocytes # 0.7 K/mm3 (0.1-1.0); Monocytes % 6.7 % (1.7-9.3); Neutrophils # 8.8 K/mm3 (1.8-7.8); Neutrophils % 83.5 % (37.0-80.0); Platelet Count 213 K/mm3 (142-424); Red Blood Count 4.84 M/mm3 (4.60-6.20); Red Cell Distribution Width 14.8 % (11.5-17.5); White Blood Count 10.6 K/mm3 (4.8-10.8)
[2023-01-21 14:18] LABS: Coronavirus 19, PCR Not Detected (NotDetected); Influenza A, PCR Not Detected (NotDetected); Influenza B, PCR Not Detected (NotDetected)
--- NOTE | 2023-01-21 14:33 | PC.NURSE ---
Dr. Arzate notified of incident while pt was in CT scan for CTA, the IV contrast leaked out from IV luer lock and angiocath. Pt had to have CTA 2x however the contrast did not go in 2x d/t the leak.
[2023-01-21 15:33] LABS: Chloride 98 mmol/L (98-107); Sodium 130 mmol/L (136-145)
[2023-01-21 15:34] LABS: Potassium 4.5 mmoL/L (3.5-5.1)
[2023-01-21 15:36] LABS: Alanine Aminotransferase 42 U/L (12-78); Albumin Level 3.4 g/dl (3.5-5.0); Albumin/Globulin Ratio 0.7 (1.1-1.8); Alkaline Phosphatase 83 U/L (38-126); Anion Gap 15.5 mEq/L (5-15); Aspartate Amino Transferase 60 U/L (17-59); Bilirubin,Total 0.8 mg/dl (0.2-1.3); Blood Urea Nitrogen 34 mg/dl (9-20); Calcium 7.9 mg/dl (8.4-10.2); Carbon Dioxide 21 mmol/L (22.0-30.0); Creatinine Clearance Estimated 72 mL/min (50-200); Estimated Glomerular Filt Rate 50 ml/min (>60); GFR (African American) 61 ML/MIN (>60); Globulin 5.2 g/dL (1.3-3.2); Glucose 121 mg/dl (74-100); Total Protein,Serum 8.6 g/dl (6.3-8.2)
[2023-01-21 15:40] LABS: Lactic Acid 2.9 mmol/L (0.7-2.1)
[2023-01-21 15:46] LABS: NT Pro Brain Natriuretic Pep. 14500 pg/mL (0-125)
[2023-01-21 15:49] LABS: Lipase 41 U/L (23-300)
[2023-01-21 15:52] LABS: Troponin I 1.52 ng/ml (0.00-0.034)
--- NOTE | 2023-01-21 15:57 | PC.NURSE ---
paged Dr. Weiss
--- NOTE | 2023-01-21 15:57 | PC.NURSE ---
Dr. Arzate s/w Dr Weiss.
--- NOTE | 2023-01-21 16:02 | CA_ITS ---
APPROVED REPORT EXAM: Comprehensive 2D, Doppler, and color-flow Echocardiogram Speech Assistant: Leigh Ruiz RVT Ht: 5 ft 11 in Wt: 228lbs BSA: 2.23 BP: 102/59 mmHg Indications: SOA,COPD 2D Dimensions LVOT 2.36 cm (M/F) 1.5-2.5 M-Mode Dimensions RVDd 3.39 cm (0.9-2.6) LA Diam 3.71 cm (1.9-4.0) LVDd 3.75 cm (3.5-5.7) Ao Diam 3.06 cm (2.0-3.7) LVDs 2.90 cm (3.5-5.7) IVSd 0.98 cm (0.6-1.1) PWd 0.62 cm (0.6-1.1) EF (Teich) 46.30% FS 22.70% EDV (Teich) 60.00 mL TAPSE 1.86 (<1.7) ESV (Teich) 32.20 mL LV Diastology E Decel Time 163.00 (160-240 msec) E/A Ratio 0.7 MED E' 5.00 (< 7 cm/sec) E'/MED E' Ratio 9.66 (>14) LAT E' 5.40 (<10 cm/sec) E/LAT E' Ratio 8.94 (>14) Mitral Valve MV E Max Guido. 48.00 (40-130 cm/s) MV A Velocity 69.00 (40-130 cm/s) E/A Ratio 0.70 MV Decel. Time 163.00 (160-240 ms) MV PHT 48.00 ms Pulmonary Valve PV Peak Velocity 53.00 (50-150 cm/s) Tricuspid Valve TR P. Velocity 370.00 cm/s RAP Estimate 10.00 mmHg RVSP 64.60 mmHg Left Ventricle The left ventricle is normal size. The left ventricular systolic function is normal. The left ventricular ejection fraction is within the normal range. There is increased LV wall thickness. The septum is asynchronous. No obvious regional wall motion abnormalities are present. Grade 2 diastolic dysfunction is present. LVEF is 55-60%. Right Ventricle Right ventricle is severely dilated. Right ventricle is severely hypokinetic. Atria The left atrium is normal in size. Right atrium is moderately dilated. There is no Doppler evidence of interatrial shunt. Aortic Valve The aortic valve is mildly thickened. The aortic valve opens well. There is no aortic valvular stenosis. No aortic regurgitation is present. Mitral Valve The mitral valve is mildly thickened. No evidence of mitral valve stenosis. Trace mitral regurgitation. Tricuspid Valve The tricuspid valve leaflets are thin and pliable. Mild tricuspid regurgitation. RVSP is 55-60 mmHg. Pulmonic Valve The pulmonary valve is normal in structure. Mild pulmonic regurgitation. Great Vessels The aortic root is normal in size. The ascending aorta is normal in size. IVC is normal in size and collapses >50% with inspiration. Pericardium Trivial pericardial effusion noted posteriorly. No echo indications of tamponade. Conclusion Normal LV systolic function. Grade 2 diastolic dysfunction. Severely dilated RV with severe reduction in RV function. Mild TR. Markedly elevated RVSP 55-60 mmHg. Trivial pericardial effusion noted posteriorly. No echo indications of tamponade. Electronically signed by : Zaira Kelley MD 01/21/2023 17:34:54
--- NOTE | 2023-01-21 16:14 | PC.NURSE ---
CV lab at bedside for echo
--- NOTE | 2023-01-21 16:28 | PC.NURSE ---
Dr. Swartz at bedside.
--- NOTE | 2023-01-21 16:29 | PC.NURSE ---
Dr Meneses from cardiology at bedside
--- NOTE | 2023-01-21 18:35 | PC.NURSE ---
Gave report to Perri Davis RN on 2nd floor
--- NOTE | 2023-01-21 18:49 | PC.NURSE ---
arrived by w/c from ED
--- NOTE | 2023-01-21 19:01 | EXP.HP ---
History of Present Illness *Admission Date: 01/21/23 *Reason for visit:: SOB *History of present illness: This is a 72-year-old male with apparent no chronic past medical history who presents emergency department for evaluation of shortness of breath. who is the primary source of information stated pt has been seeing pcp for a potential new onset COPD and has been referred to pulmonology. However for the last x2 weeks pt has been short of breath with exertion that has been increasing. Patien was using inhaler at home with no relief. Patient has had subacute shortness of breath, weight loss, decreased appetite, vague stomach pain. Admitted for further work up and treatment. [facility] Disclaimer: The information contained in this section may have been updated after the patient was seen, as this information can be updated by other users. Medical History (Updated 01/22/23 @ 12:18 by Waleska Hernández APRN) Abnormal electrocardiogram [ECG] [EKG] Acute respiratory failure with hypoxia Coronary artery calcification seen on CT scan Coronary artery disease Fibrosis of lung History of 2019 novel coronavirus disease (COVID-19) History of alcoholism History of tobacco use Idiopathic pulmonary fibrosis ILD (interstitial lung disease) Non-STEMI (non-ST elevated myocardial infarction) Pulmonary hypertension Social History (Updated 01/21/23 @ 19:46 by Vicky Beckford RN) Smoking Status: Former smoker tobacco type: cigarettes alcohol intake: never current occupational status: disabled Travel in the last 8 weeks: None household members: spouse and family housing: house Review of Systems Review of Systems Review of systems:: pertinent systems reviewed and negative unless documented below Meds Home Medications and Allergies Home Medications Medication Instructions Recorded Confirmed Type budesonide 160 mcg-glycopyr 9 2 puff inhalation BID Copd 01/22/23 01/22/23 History mcg-formot 4.8 mcg/actuation HFA inhaler (Breztri Aerosphere) New Prescriptions to Start Prescriptions: Allergies Allergy/AdvReac Type Severity Reaction Status Date / Time No Known Allergies Allergy Verified 06/06/19 10:09 Exam Data for Last 24 hours Vital signs and Labs for Last 24 Hours: Temp Pulse Resp BP Pulse Ox O2 Del Method FiO2 97.5 F L 81 24 97/60 L 97 Venturi Mask 50 01/21/23 18:37 01/21/23 18:37 01/21/23 18:37 01/21/23 18:37 01/21/23 17:00 01/21/23 18:37 01/21/23 18:57 Laboratory Results - last 24 hr 01/21/23 13:40: WBC 10.6, RBC 4.84, Hgb 16.7, Hct 48.7, MCV 100.6 H, MCH 34.5 H, MCHC 34.3, RDW 14.8, Plt Count 213, MPV 8.8, Neut % (Auto) 83.5 H, Lymph % (Auto) 9.3 L, [place] % (Auto) 6.7, Eos % (Auto) 0.3, Baso % (Auto) 0.2, Neut # (Auto) 8.8 H, Lymph # (Auto) 1.0, [place] # (Auto) 0.7, Eos # (Auto) 0.0, Baso # (Auto) 0.0, Lipase 41 01/21/23 13:45: VBG pH 7.34, VBG pCO2 35.2, VBG pO2 38.5, VBG HCO3 18.7 L, VBG Total CO2 19.7 L, VBG O2 Saturation 66.1, VBG Base Excess -7.1 L 01/21/23 13:56: SARS-CoV-2 (PCR) Not detected, Influenza A Untype (PCR) Not detected, Influenza Type B (PCR) Not detected 01/21/23 15:09: Sodium 130 L, Potassium 4.5, Chloride 98, Carbon Dioxide 21 L, Anion Gap 15.5 H, BUN 34 H, Creatinine 1.40 H, Estimated Creat Clear 72, Estimated GFR 50 L, Est GFR ( Amer) 61, Glucose 121 H, Lactate 2.9 H, Calcium 7.9 L, Total Bilirubin 0.8, AST 60 H, ALT 42, Alkaline Phosphatase 83, Troponin I 1.52 H, NT-Pro-B Natriuret Pep 88457 H, Total Protein 8.6 H, Albumin 3.4 L, Globulin 5.2 H, Albumin/Globulin Ratio 0.7 L I & O for Last 24 hours: Intake & Output 01/19/23 01/20/23 01/20/23 01/21/23 00:59 00:59 23:59 23:59 Output Total 700 / 700 Balance -700 / -700 Weight 87.713 kg Constitutional Constitutional: mild distress and cooperative *Routine HEENT Exam Head: Present normocephalic and atraumatic Eye: Present EOMI, PERRL and normal accommodation ENT: Present mucous membra
[2023-01-21 19:28] LABS: Reflex Lactic Add Lactic Reflex
--- NOTE | 2023-01-21 19:30 | PC.NURSE ---
Pt on BiPAP 50% upon assessment. PRIVACY ATTORNEY at bedside verbally said okay for pt to eat and drink water so long as pt's SpO2 tolerated. Advised pt and at bedside for pt to eat slowly and that RN will be monitoring O2. Venti mask 15 L 50% set up and sandwich given to pt. Pt's SpO2 82-85% on venti mask, but no respiratory distress. Educated pt on necessity to go back on BiPAP after half of sandwich eaten. Pt agreed, placed back on BiPAP 50%, SpO2 96-100%.
[2023-01-21 19:44] LABS: Troponin I 1.96 ng/ml (0.00-0.034)
--- NOTE | 2023-01-21 20:20 | PC.NURSE ---
This RN noticed rhythm change from NSR to NSR with PVCs. SRNA printed rhythm strip and RN presented to [employer]. Pt found sleeping on BiPAP, VSS, and denies SOB, chest pain, dizziness, and N/V. Upon pt assessment, pt rhythm spontaneously converted to NSR. Some periods of NSR with PVCs noted after provider notification.
--- NOTE | 2023-01-21 20:39 | PC.NURSE ---
Clarified code status with pt. Pt AOx4 with at bedside. Pt denies wanting all life-sustaining measures, wishing to be DNR/DNI. Notified INDIRECT SALES REPRESENTATIVE. Purple DNR armband placed on pt.
[2023-01-21 21:12] LABS: Troponin I 1.93 ng/ml (0.00-0.034)
[2023-01-22] VITALS (32 sets, daily range): BP systolic 99–132; BP diastolic 55–87; PULSE 60–94; RESP 10–28; TEMP 36.6–36.9; O2SAT 6–98; BMI 27.0
--- NOTE | 2023-01-22 05:06 | PC.NURSE ---
Pt slept most of shift, tolerating BiPAP 50%. Approximately 0400, pt weaned to 40% FiO2 on BiPAP, SpO2 88%. Notified RT and increased FiO2 to 50%, SpO2 96%. Pt irritable upon awakening for pt care, but allowed SRNAs to bathe and prep for possible cardiac cath. Mouth swabs and NPO reasoning provided to pt, who verbalized understanding. No acute issues or events overnight. at bedside now and educated on possible cardiac cath at this time.
--- NOTE | 2023-01-22 06:08 | PC.NURSE ---
Pt reeducated on purpose of BiPAP and NPO status. Informed attempts to wean FiO2 on BiPAP and reason for leaving BiPAP on at this time. Reeducated current POC, including Lasix and possible heart cath. Pt and pt requiring reinforced teaching.
[2023-01-22 06:11] LABS: Basophils % 0.3 % (0.1-2.0); Eosinophils # 0.2 K/mm3 (0.0-0.4); Eosinophils % 1.9 % (0.1-12.0); Hematocrit 44.9 % (42.0-52.0); Hemoglobin 15.4 g/dL (14.1-18.0); Lymphocytes # 0.9 K/mm3 (0.7-4.5); Lymphocytes % 10.7 % (10-50); Mean Corpuscular HGB Conc 34.4 g/dL (31.8-35.4); Mean Corpuscular Hemoglobin 34.3 pg (27.0-31.2); Mean Corpuscular Volume 99.5 fl (80-94); Mean Platelet Volume 8.5 fl (7.4-10.4); Monocytes # 0.5 K/mm3 (0.1-1.0); Monocytes % 6.3 % (1.7-9.3); Neutrophils # 6.9 K/mm3 (1.8-7.8); Neutrophils % 80.8 % (37.0-80.0); Platelet Count 186 K/mm3 (142-424); Red Blood Count 4.51 M/mm3 (4.60-6.20); White Blood Count 8.5 K/mm3 (4.8-10.8)
[2023-01-22 06:15] LABS: Alanine Aminotransferase 37 U/L (12-78); Albumin Level 3.3 g/dl (3.5-5.0); Albumin/Globulin Ratio 0.7 (1.1-1.8); Alkaline Phosphatase 76 U/L (38-126); Anion Gap 14.3 mEq/L (5-15); Aspartate Amino Transferase 55 U/L (17-59); Bilirubin,Total 0.8 mg/dl (0.2-1.3); Blood Urea Nitrogen 33 mg/dl (9-20); Calcium 8.1 mg/dl (8.4-10.2); Carbon Dioxide 21 mmol/L (22.0-30.0); Chloride 103 mmol/L (98-107); Chol/HDL Ratio 8.9 (1-3.5); Cholesterol 125 mg/dl (140-200); Creatinine Clearance Estimated 78 mL/min (50-200); Estimated Glomerular Filt Rate 66 ml/min (>60); GFR (African American) 80 ML/MIN (>60); Globulin 4.9 g/dL (1.3-3.2); Glucose 110 mg/dl (74-100); HDL Cholesterol 14 mg/dl (40-60); Magnesium 2.5 mg/dl (1.6-2.3); Potassium 4.3 mmoL/L (3.5-5.1); Sodium 134 mmol/L (136-145); Total Protein,Serum 8.2 g/dl (6.3-8.2); Triglycerides 109 mg/dl (30-150); VLDL Cholesterol 22 mg/dL (0-40)
[2023-01-22 06:26] LABS: Direct LDL Cholesterol 79.68 mg/dL (100-129)
--- NOTE | 2023-01-22 08:27 | HMH.PHAINT1 ---
Pharmacy Intervention Comments: PT SPOUSE CONFIRMED PT IS NOT TAKING HOME MEDICATIONS AT THIS TIME
--- NOTE | 2023-01-22 09:47 | EXP.PULM.CON ---
History of Present Illness History of present illness: Mr. Cruz is a 72-year-old male presented to the ER with worsening respiratory distress the last 2 weeks but has been progressively worsening presented to ER for further evaluation and management. [facility] Disclaimer: The information contained in this section may have been updated after the patient was seen, as this information can be updated by other users. Medical History (Updated 01/22/23 @ 12:03 by Ke Orellana MD) Acute respiratory failure with hypoxia Fibrosis of lung History of 2019 novel coronavirus disease (COVID-19) Idiopathic pulmonary fibrosis ILD (interstitial lung disease) Social History (Updated 01/21/23 @ 19:46 by Vicky Beckford RN) Smoking Status: Former smoker tobacco type: cigarettes alcohol intake: never current occupational status: disabled Travel in the last 8 weeks: None household members: spouse and family housing: house Review of Systems Constitutional Constitutional: Reports fatigue Eyes Eyes: Denies eye discharge, Denies dry eyes, Denies irritation and Denies itchy eyes ENT Ears, Nose, Mouth, and Throat: Denies epistaxis, Denies facial pain, Denies lip swelling and Denies throat swelling *Cardiovascular Cardiovascular: Reports dyspnea, Reports dyspnea on exertion and Reports orthopnea *Respiratory Respiratory: Reports chest congestion, Reports cough, Reports dyspnea, Reports dyspnea on exertion, Denies excessive phlegm production and Denies wheezing *Gastrointestinal Gastrointestinal: Denies abdominal pain, Denies belching and Denies cramping *Musculoskeletal Musculoskeletal: Reports back pain, Reports myalgias and Reports other (No small joint swelling or Pain) Psychiatric Psychiatric: Denies homicidal ideation and Denies suicidal ideation Endocrine Endocrine: Reports fatigue and Denies heat intolerance Hematologic/Lymphatic Hematologic/Lymphatic: Denies easy bleeding and Denies lymphadenopathy Allergic/Immunologic Allergic/Immunologic: Denies itchy eyes, Denies lip swelling, Denies throat swelling and Denies wheezing Pulmonology Exam Inpatient Vital signs and Labs for Last 24 Hours: Temp Pulse Resp BP Pulse Ox O2 Del Method O2 Flow Rate 97.9 F 70 20 127/75 91 L Nasal Cannula 4 01/22/23 08:42 01/22/23 08:00 01/22/23 06:00 01/22/23 06:00 01/22/23 08:39 01/22/23 09:29 01/22/23 09:29 FiO2 50 01/22/23 08:00 Laboratory Results - last 24 hr 01/21/23 13:40: WBC 10.6, RBC 4.84, Hgb 16.7, Hct 48.7, MCV 100.6 H, MCH 34.5 H, MCHC 34.3, RDW 14.8, Plt Count 213, MPV 8.8, Neut % (Auto) 83.5 H, Lymph % (Auto) 9.3 L, [place] % (Auto) 6.7, Eos % (Auto) 0.3, Baso % (Auto) 0.2, Neut # (Auto) 8.8 H, Lymph # (Auto) 1.0, [place] # (Auto) 0.7, Eos # (Auto) 0.0, Baso # (Auto) 0.0, Lipase 41 01/21/23 13:45: VBG pH 7.34, VBG pCO2 35.2, VBG pO2 38.5, VBG HCO3 18.7 L, VBG Total CO2 19.7 L, VBG O2 Saturation 66.1, VBG Base Excess -7.1 L 01/21/23 13:56: SARS-CoV-2 (PCR) Not detected, Influenza A Untype (PCR) Not detected, Influenza Type B (PCR) Not detected 01/21/23 15:09: Sodium 130 L, Potassium 4.5, Chloride 98, Carbon Dioxide 21 L, Anion Gap 15.5 H, BUN 34 H, Creatinine 1.40 H, Estimated Creat Clear 72, Estimated GFR 50 L, Est GFR ( Amer) 61, Glucose 121 H, Lactate 2.9 H, Calcium 7.9 L, Total Bilirubin 0.8, AST 60 H, ALT 42, Alkaline Phosphatase 83, Troponin I 1.52 H, NT-Pro-B Natriuret Pep 07676 H, Total Protein 8.6 H, Albumin 3.4 L, Globulin 5.2 H, Albumin/Globulin Ratio 0.7 L 01/21/23 18:25: Troponin I 1.96 H 01/21/23 20:00: Lactate 2.0 01/21/23 20:30: Troponin I 1.93 H 01/22/23 05:25: WBC 8.5, RBC 4.51 L, Hgb 15.4, Hct 44.9, MCV 99.5 H, MCH 34.3 H, MCHC 34.4, RDW 15.0, Plt Count 186, MPV 8.5, Neut % (Auto) 80.8 H, Lymph % (Auto) 10.7, [place] % (Auto) 6.3, Eos % (Auto) 1.9, Baso % (Auto) 0.3, Neut # (Auto) 6.9, Lymph # (Auto) 0.9, [place] # (Auto) 0.5, Eos # (Auto) 0.2, Baso # (Auto) 0.0, Sodium 134 L, Potassium 4.3, Chloride
--- NOTE | 2023-01-22 10:21 | IR_ITS ---
APPROVED REPORT Patient Location: Inpatient [facility] [place] Installer: JAH iHckman RT (R) PROCEDURES Right heart catheterization left heart catheterization Left ventriculogram Selective coronary angiogram Drug-eluting stent deployment to the ostial proximal mid and distal left main artery Drug-eluting stent deployment to the ostial proximal LAD Drug-eluting stent deployment to the ostial proximal circumflex artery Drug-eluting stent deployment to the first obtuse marginal artery Intravascular ultrasound to the LAD and left main artery Right axillary artery retrograde angiogram Stent deployment to the right axillary artery INDICATION Acute non-ST elevation myocardial infarction, Coronary artery disease, Nonsurgical patient due to severe pulmonary fibrosis, Peripheral artery disease, Pulmonary hypertension, Chronic right heart failure Informed consent was obtained prior to the procedure. TECHNIQUE One percent lidocaine was used to anesthetize the right anterior aspect of the right wrist. The right radial artery was accessed via the Seldinger technique and a 6 Sammarinese hydrophilic sheath was placed in the right radial artery. Following this one percent lidocaine was used to anesthetize the right anterior aspect of the right neck. The right internal jugular vein was accessed via the Seldinger technique and a 7 Sammarinese sheath was placed in the right internal jugular vein. Following this an arterial cocktail was administered using 5000U heparin, 2.5 mg verapamil, 1mg Lidocaine and 800mcg nitroglycerin into the right radial sheath. A papa catheter was used to perform left heart catheterization left ventriculogram and selective coronary angiography while a [place]elsdorf-Gemma catheter was used to perform right heart catheterization. Saturations were obtained in the pulmonary artery and right atrium. At the end of the diagnostic angiogram therapeutic heparin was administered giving a therapeutic ACT and the guide cath was placed in left main artery. A wire was placed into the LAD and a 5 mm x 12 mm [place] frontier stent was deployed at 20 sandra left main artery. The left main artery was large and did not capture the distal segment of the left main artery. The stent became dislodged and actually floated out into the aorta up into the ascending aorta being held in place with the guide catheter and additional 5 mm x 12 mm [place] frontier stent was placed distal to the for stent and deployed at 24 sandra. An additional wire was placed into the circumflex artery. Predilatation was made into both the LAD and the circumflex artery. Two 3 mm x 15 mm [place] frontier stents were placed in the distal left main artery when extending the proximal LAD and the other extending into the proximal circumflex artery. The LAD stent was deployed at 20 sandra while the circumflex artery stent was deployed at 16 sandra. The stents were deployed simultaneously and quickly deflated after maximum inflation. At this point intravascular ultrasound probe was advanced which demonstrated an undersized stent in the LAD with severe distal calcified stenosis. An additional 3 mm x 22 mm [place] frontier stent was placed distal to the first proximal LAD stent yet still overlapping and deployed at 20 sandra. Excellent angiograph results were obtained. A guide liner was then advanced into the circumflex artery and a 2.75 mm x 38 mm [place] frontier stent was deployed in the proximal circumflex artery overlapping the ostial stent and deployed at 20 sandra. The guide liner was advanced and and a 2.5 x 18 mm [place] frontier stent was deployed at 24 sandra further reducing the calcified stenosis. The balloon was brought back and deployed at 24 sandra throughout the circumflex artery. After achieving excellent angiograph results the apparatus was removed from the coronary arteries and
--- NOTE | 2023-01-22 10:52 | PC.NURSE ---
patient gone to [address]
--- NOTE | 2023-01-22 12:00 | EXP.CARD.CON ---
History of Present Illness History of Present Illness Consult date: 01/22/23 Requesting physician: Jose Webster Consult reason: shortness of breath Chief complaint: SOA History of present illness: This is a 72-year-old white gentleman who presented to the emergency department complaints of shortness of breath. The patient has a past medical history other than COPD for which he takes an inhaler at home. The patient states that he has been more short of breath for approximately 2 weeks. His states that he seemed to just worsen daily with his shortness of breath over the last 2 weeks and then yesterday he seemed really flashed and was not eating. She states that his shortness of breath had gotten severe at that point so she decided to bring him to the hospital for evaluation of the shortness of breath. The patient was severely short of breath at rest and it was worse with exertion. It did improve with rest but did not completely resolved. He denied any associated lower extremity edema. He denies chest pain or pressure. He did have some decreased appetite, weight loss and vague stomach pain associated with the shortness of breath. He does have an associated cough which is nonproductive. He had some chills intermittently but denied having any fevers. He denies any nausea, vomiting, diarrhea, PND or orthopnea. The patient reported that he was a previous smoker and stopped smoking in 2006. He does have a history of alcoholism and he stopped drinking alcohol in 1982. [facility] Disclaimer: The information contained in this section may have been updated after the patient was seen, as this information can be updated by other users. Medical History (Updated 01/22/23 @ 12:18 by Waleska Hernández APRN) Abnormal electrocardiogram [ECG] [EKG] Acute respiratory failure with hypoxia Coronary artery calcification seen on CT scan Coronary artery disease Fibrosis of lung History of 2019 novel coronavirus disease (COVID-19) History of alcoholism History of tobacco use Idiopathic pulmonary fibrosis ILD (interstitial lung disease) Non-STEMI (non-ST elevated myocardial infarction) Pulmonary hypertension Social History (Updated 01/21/23 @ 19:46 by Vicky Beckford RN) Smoking Status: Former smoker tobacco type: cigarettes alcohol intake: never current occupational status: disabled Travel in the last 8 weeks: None household members: spouse and family housing: house Review of Systems Review of Systems Review of systems:: pertinent systems reviewed and negative unless documented below Constitutional Constitutional: Reports system reviewed and no additional complaints, except as documented, Reports chills, Reports fatigue, Reports poor appetite, Reports lethargy and Reports weight loss Eyes Eyes: Reports system reviewed and no additional complaints, except as documented ENT Ears, Nose, Mouth, and Throat: Reports system reviewed and no additional complaints, except as documented *Cardiovascular Cardiovascular: Reports system reviewed and no additional complaints, except as documented, Denies chest pain, Reports dyspnea, Reports dyspnea on exertion and Denies leg edema *Respiratory Respiratory: Reports system reviewed and no additional complaints, except as documented, Denies chest congestion, Reports cough (Nonproductive), Reports dyspnea and Reports dyspnea on exertion *Gastrointestinal Gastrointestinal: Reports system reviewed and no additional complaints, except as documented *Genitourinary Genitourinary: Reports system reviewed and no additional complaints, except as documented *Musculoskeletal Musculoskeletal: Reports system reviewed and no additional complaints, except as documented Integumentary/Breasts Skin/Breast: Reports system reviewed and no additional complaints, except as documented *Neurologic Neurologic: Reports system reviewed and no additional complaints, except as documented Psychiatric Psychiatric: Reports system reviewe
[2023-01-22 12:24] LABS: Adenovirus,PCR Not Detected (NotDetected); Coronavirus 19, PCR Not Detected (NotDetected); Coronavirus 229E Not Detected (NotDetected); Coronavirus NL63 Not Detected (NotDetected); Coronavirus OC43 Not Detected (NotDetected); Coronovirus HKU1,PCR Not Detected (NotDetected); Human Metapneumovirus Not Detected (NotDetected); Influenza A, PCR Not Detected (NotDetected); Influenza AH1, 2009 Not Detected (NotDetected); Influenza AH1, PCR Not Detected (NotDetected); Influenza AH3,PCR Not Detected (NotDetected); Influenza B, PCR Not Detected (NotDetected); Parainfluenza 1, PCR Not Detected (NotDetected); Parainfluenza 2, PCR Not Detected (NotDetected); Parainfluenza 3, PCR Not Detected (NotDetected); Parainfluenza 4, PCR Not Detected (NotDetected); Respiratory Syncytial Virus Not Detected (NotDetected); Rhinovirus/Enterovirus Not Detected (NotDetected)
--- NOTE | 2023-01-22 14:00 | PC.NURSE ---
report called from PAULINA Escalante in [employer]. patient to return to room once fully recovered.
--- NOTE | 2023-01-22 14:03 | SUR.PHASEII ---
right ij sheath pulled, bandage applied, dressing placed- cdi
--- NOTE | 2023-01-22 14:57 | PC.NURSE ---
patient unable to produce sputum for culture.
[2023-01-22 16:41] LABS: Lactate Dehydrogenase 598 U/L (313-618)
[2023-01-22 16:49] LABS: C-Reactive Protein 124.9 mg/L (0-4)
[2023-01-22 17:03] LABS: Procalcitonin 0.197 ng/mL (0.0-2.0)
[2023-01-22 18:02] LABS: CATHL Arterial O2 SAT 57.8 % (90-100); CATHL Venous O2 SAT 59 % (75-80)
--- NOTE | 2023-01-22 18:32 | PC.NURSE ---
Last 4ml of air removed from right radialband. Gauze and tegaderm applied to surgical site.
--- NOTE | 2023-01-22 18:55 | EXP.ACUTE.PN ---
Subjective *Date: 01/22/23 *Time: 22:31 Interval history: Patient doing better on morning rounds, tolerating nasal cannula oxygen at 6 L. Feeling better after eating breakfast. No nausea or vomiting. Denies any chest pain. Has diuresed well, -1.1 L. Medical Exam Vital signs and Labs for Last 24 Hours: Vital Signs Temp Pulse Pulse Resp BP BP Pulse Ox 01/22/23 18:52 88 24 132/70 98 01/22/23 17:57 94 L 01/22/23 18:00 68 23 95 01/22/23 17:45 88 21 110/76 95 01/22/23 18:01 92 H 01/22/23 18:01 91 H 01/22/23 17:57 95 01/22/23 16:45 86 24 94 L 01/22/23 16:00 80 01/22/23 16:30 81 13 109/64 L 95 01/22/23 16:00 71 15 103/87 L 98 01/22/23 15:30 87 26 H 110/76 95 01/22/23 15:14 83 24 131/72 92 L 01/22/23 14:45 85 10 L 121/80 90 L 01/22/23 14:43 91 H 6 L 01/22/23 14:30 87 20 120/82 85 L 01/22/23 14:25 83 26 H 121/80 85 L 01/22/23 14:00 85 20 110/72 89 L 01/22/23 13:45 86 18 103/66 L 91 L 01/22/23 13:40 84 18 118/73 96 01/22/23 13:35 84 18 127/79 97 01/22/23 13:45 84 74 18 130/75 96 01/22/23 11:00 01/22/23 10:00 94 L 01/22/23 08:00 01/22/23 09:29 01/22/23 08:00 70 01/22/23 08:42 97.9 F 01/22/23 08:39 91 L 01/22/23 06:48 01/22/23 06:00 68 20 127/75 96 01/22/23 05:00 01/22/23 04:00 80 01/22/23 04:10 94 L 01/22/23 04:00 97.8 F 60 22 120/74 88 L 01/22/23 03:47 01/22/23 03:00 01/22/23 00:00 01/22/23 02:00 72 18 109/72 L 97 01/22/23 00:00 70 01/21/23 22:00 56 L 20 114/76 95 01/22/23 01:00 01/22/23 00:00 95 01/22/23 00:00 97.8 F 74 16 129/64 95 01/21/23 23:00 01/21/23 20:00 80 01/21/23 21:00 01/21/23 20:40 97.0 F L 62 20 121/71 100 01/21/23 20:40 100 01/21/23 19:12 77 22 121/58 L 97 01/21/23 18:57 O2 Del Method O2 Flow Rate FiO2 01/22/23 18:52 25 50 01/22/23 17:57 Vapotherm 25 60 01/22/23 18:00 Vapotherm 25 60 01/22/23 17:45 Vapotherm 25 60 01/22/23 18:01 01/22/23 18:01 01/22/23 17:57 Vapotherm 25 60 01/22/23 16:45 Vapotherm 25 60 01/22/23 16:00 01/22/23 16:30 Room Air 01/22/23 16:00 Vapotherm 01/22/23 15:30 Venturi Mask 01/22/23 15:14 Nasal Cannula 6 01/22/23 14:45 Nasal Cannula 6 01/22/23 14:43 Nasal Cannula 01/22/23 14:30 Nasal Cannula 5 01/22/23 14:25 Nasal Cannula 5 01/22/23 14:00 Simple Mask 6 01/22/23 13:45 Nasal Cannula 4 01/22/23 13:40 Nasal Cannula 4 01/22/23 13:35 Nasal Cannula 4 01/22/23 13:45 Nasal Cannula 4 01/22/23 11:00 Nasal Cannula 4 01/22/23 10:00 Nasal Cannula 2 01/22/23 08:00 BiPAP 50 01/22/23 09:29 Nasal Cannula 4 01/22/23 08:00 01/22/23 08:42 01/22/23 08:39 Nasal Cannula 5 01/22/23 06:48 BiPAP 01/22/23 06:00 BiPAP 01/22/23 05:00 BiPAP 01/22/23 04:00 01/22/23 04:10 BiPAP 50 01/22/23 04:00 BiPAP 40 01/22/23 03:47 40 01/22/23 03:00 BiPAP 01/22/23 00:00 BiPAP 01/22/23 02:00 BiPAP 01/22/23 00:00 01/21/23 22:00 BiPAP 01/22/23 01:00 BiPAP 01/22/23 00:00 BiPAP 50 01/22/23 00:00 BiPAP 01/21/23 23:00 BiPAP 01/21/23 20:00 01/21/23 21:00 BiPAP 01/21/23 20:40 BiPAP 50 01/21/23 20:40 BiPAP 50 01/21/23 19:12 BiPAP 50 01/21/23 18:57 50 Intake and Output 01/22/23 01/22/23 01/22/23 07:59 15:59 23:59 Intake Total 0 / 840 0 / 840 840 / 840 Output Total 400 / 1700 1300 / 1700 Balance -400 / -860 -1300 / -860 840 / -860 Intake: Intake, Oral Amount 0 / 840 0 / 840 840 / 840 Output: Output, Urine Amount 400 / 1700 1300 / 1700 Other: Number of Voids 2 Number of Unmeasured Voids 1 0 Weight 87.7 kg Patient Weight
[2023-01-23] VITALS (20 sets, daily range): BP systolic 94–118; BP diastolic 47–68; PULSE 69–95; RESP 12–23; TEMP 36.5–37.4; O2SAT 89–98; BMI 27.4
[2023-01-23 06:37] LABS: Alanine Aminotransferase 51 U/L (12-78); Albumin Level 3.6 g/dl (3.5-5.0); Albumin/Globulin Ratio 0.7 (1.1-1.8); Alkaline Phosphatase 85 U/L (38-126); Anion Gap 15.8 mEq/L (5-15); Aspartate Amino Transferase 72 U/L (17-59); Basophils % 0.1 % (0.1-2.0); Bilirubin,Total 0.6 mg/dl (0.2-1.3); Blood Urea Nitrogen 26 mg/dl (9-20); Calcium 8.2 mg/dl (8.4-10.2); Carbon Dioxide 26 mmol/L (22.0-30.0); Chloride 96 mmol/L (98-107); Creatinine Clearance Estimated 87 mL/min (50-200); Eosinophils % 0.1 % (0.1-12.0); Estimated Glomerular Filt Rate 74 ml/min (>60); GFR (African American) 89 ML/MIN (>60); Globulin 5.1 g/dL (1.3-3.2); Glucose 158 mg/dl (74-100); Hematocrit 45.5 % (42.0-52.0); Hemoglobin 15.8 g/dL (14.1-18.0); Lymphocytes # 0.5 K/mm3 (0.7-4.5); Lymphocytes % 4.9 % (10-50); Magnesium 2.3 mg/dl (1.6-2.3); Mean Corpuscular HGB Conc 34.7 g/dL (31.8-35.4); Mean Corpuscular Hemoglobin 34.6 pg (27.0-31.2); Mean Corpuscular Volume 99.9 fl (80-94); Mean Platelet Volume 8.1 fl (7.4-10.4); Monocytes # 0.5 K/mm3 (0.1-1.0); Monocytes % 4.5 % (1.7-9.3); Neutrophils # 9.2 K/mm3 (1.8-7.8); Neutrophils % 90.4 % (37.0-80.0); Platelet Count 176 K/mm3 (142-424); Potassium 3.8 mmoL/L (3.5-5.1); Red Blood Count 4.55 M/mm3 (4.60-6.20); Sodium 134 mmol/L (136-145); Total Protein,Serum 8.7 g/dl (6.3-8.2); White Blood Count 10.2 K/mm3 (4.8-10.8)
[2023-01-23 06:38] LABS: MANUAL DIFFERENTIAL MANUAL DIFFERENTIAL (MANUAL DIFF)
--- NOTE | 2023-01-23 07:43 | PC.NURSE ---
Pt had an episode of coughing. O2 sats declined to upper 70s. RT called after pt noted to have difficulty recovering. Vapotherm was increased to 30L 60%.
[2023-01-23 07:55] LABS: Lymphocytes % 7 % (10-50); Monocytes % 4 % (2-9); Neutrophils % 89 % (42-76); Total Cells Counted 100
[2023-01-23 07:56] LABS: Platelet Estimate Normal; RBC Morphology Normal
[2023-01-23 08:47] LABS: CATHL Activated Clotting Time > 400 SEC (74-125)
[2023-01-23 08:47] LABS: CATHL Activated Clotting Time > 400 SEC (74-125)
--- NOTE | 2023-01-23 08:48 | EXP.PULM.PN ---
Subjective *Date: 01/23/23 *Time: 10:02 Interval history: Patient denies any new respiratory complaints. Continued to complain of respiratory distress. Denies any worsening. Pulmonology Exam Inpatient Vital signs and Labs for Last 24 Hours: Temp Pulse Resp BP Pulse Ox O2 Del Method O2 Flow Rate 98.4 F 93 H 12 98/66 L 94 L Vapotherm 30 01/23/23 07:38 01/23/23 06:00 01/23/23 06:00 01/23/23 06:00 01/23/23 06:00 01/23/23 08:06 01/23/23 08:06 FiO2 60 01/23/23 08:06 Laboratory Results - last 24 hr 01/21/23 13:56: Chlamy pneumoniae PCR TNP, Adenovirus (PCR) Not detected, B. pertussis DNA (PCR) TNP, Coronavirus OC43 (PCR) Not detected, Coronavirus HKU1 (PCR) Not detected, Coronavirus 229E (PCR) Not detected, SARS-CoV-2 (PCR) Not detected, Coronavirus NL63 (PCR) Not detected, Human Metapneumovir PCR Not detected, Influenza A (H1) PCR Not detected, Influ A (H1N1/09) PCR Not detected, Influenza A (H3) PCR Not detected, Influenza Type A (PCR) Not detected, Influenza Type B (PCR) Not detected, M. pneumoniae (PCR) TNP, Parainfluenza 1 (PCR) Not detected, Parainfluenza 2 (PCR) Not detected, Parainfluenza 3 (PCR) Not detected, Parainfluenza 4 (PCR) Not detected, RSV (PCR) Not detected, Entero/Rhino (PCR) Not detected 01/22/23 11:43: ABG O2 Sat (Measured) 57.8 L, POC VBG O2 Sat (Erlin) 59 L 01/22/23 13:52: Activated Clotting Time > 400 H* 01/22/23 15:45: Lactate Dehydrogenase 598, C-Reactive Protein 124.9 H, Procalcitonin 0.197 01/23/23 05:40: WBC 10.2, RBC 4.55 L, Hgb 15.8, Hct 45.5, MCV 99.9 H, MCH 34.6 H, MCHC 34.7, RDW 15.0, Plt Count 176, MPV 8.1, Neut % (Auto) 90.4 H, Lymph % (Auto) 4.9 L, [place] % (Auto) 4.5, Eos % (Auto) 0.1, Baso % (Auto) 0.1, Neut # (Auto) 9.2 H, Lymph # (Auto) 0.5 L, [place] # (Auto) 0.5, Eos # (Auto) 0.0, Baso # (Auto) 0.0, Total Counted 100, Neutrophils % (Manual) 89 H, Lymphocytes % (Manual) 7 L, Monocytes % (Manual) 4, Platelet Estimate Normal, RBC Morphology Normal, Sodium 134 L, Potassium 3.8, Chloride 96 L, Carbon Dioxide 26, Anion Gap 15.8 H, BUN 26 H, Creatinine 1.00, Estimated Creat Clear 87, Estimated GFR 74, Est GFR ( Amer) 89, Glucose 158 H, Calcium 8.2 L, Magnesium 2.3, Total Bilirubin 0.6, AST 72 H D, ALT 51 D, Alkaline Phosphatase 85, Total Protein 8.7 H, Albumin 3.6, Globulin 5.1 H, Albumin/Globulin Ratio 0.7 L I & O for Labs for Last 24 Hours: Intake & Output 01/20/23 01/21/23 01/22/23 01/23/23 23:59 23:59 23:59 23:59 Intake Total 840 / 1350 510 / 510 Output Total 700 / 700 2100 / 2100 650 / 650 Balance -700 / -700 -1260 / -750 -140 / -140 Weight 193 lb 6 oz 193 lb 5.526 oz 196 lb 6 oz Constitutional: Present severe distress Head: Present normocephalic and atraumatic ENT: Present normal exam, normal oropharynx and mucous membranes moist Neck: Present normal inspection and full ROM Respiratory: Present rales, respiratory distress and able to speak in complete sentences; Absent wheezes or crackles Cardiac: Present S1/S2, Tachycardia and radial pulses present GI: Present soft and distention; Absent tenderness or guarding Skin: Present intact; Absent cyanosis or jaundice Neuro: Present alert, awake and oriented x 3 Extremities: Present normal inspection; Absent clubbing or cyanosis Psychiatric: Present normal affect and cooperative Assessment and Plan *Assessment and plan (1) ILD (interstitial lung disease): Status: Acute Category: Medical Code(s): J84.9 - Interstitial pulmonary disease, unspecified (2) Acute respiratory failure with hypoxia: Status: Acute Category: Medical Code(s): J96.01 - Acute respiratory failure with hypoxia (3) Fibrosis of lung: Status: Acute Category: Medical Code(s): J84.10 - Pulmonary fibrosis, unspecified (4) History of 2019 novel coronavirus disease (COVID-19): Status: Acute Category: Medical Code(s): Z86.16 - Personal history of COVID-19 (5) Pulmonary hypertension: St
--- NOTE | 2023-01-23 11:47 | EXP.CARD.PN ---
Subjective Subjective Date: 01/23/23 Time: 10:30 Principal diagnosis: nonstemi, CAD Interval history: This is a 72-year-old white gentleman who presented to the emergency department complaints of shortness of breath. The patient was initially being treated for pulmonary edema and an acute exacerbation of HFpEF. The patient did have an elevated troponin consistent with a non-STEMI. The patient underwent right and left cardiac catheterization yesterday. The patient had critical diffuse calcific coronary disease. He underwent successful stenting to the left main and double barrel stenting to the distal left main artery extending into the proximal circumflex artery in the proximal LAD. He also had successful stenting of the proximal LAD the proximal circumflex artery and the first obtuse marginal artery. He also had successful stent deployment in the right axillary artery. The patient's right cardiac catheterization showed that his pulmonary artery occlusion pressure was 8 mmHg so he was essentially euvolemic or on the dry side and his right atrial pressure was 3 mmHg. The patient was also evaluated by pulmonology yesterday and his CTA was reviewed by him which showed bilateral diffuse groundglass opacities and interstitial thickening which had significantly worsened. The patient does have fibrotic changes. His CT was not consistent with pulmonary edema and it was more consistent with fibrotic changes. This morning the patient states that he is feeling much better. He is more talkative today. He states that he is still having shortness of breath but it is much better than it was. He denies any chest pain or pressure. He denies any lower extremity edema. He denies any fever, chills, nausea, vomiting, diarrhea, PND orthopnea. Exam Data for Last 24 hours Vital signs and Labs for Last 24 Hours: Temp Pulse Resp BP Pulse Ox O2 Del Method O2 Flow Rate 98.4 F 77 20 109/68 L 96 Vapotherm 20 01/23/23 07:38 01/23/23 11:12 01/23/23 10:00 01/23/23 10:00 01/23/23 11:14 01/23/23 11:14 01/23/23 11:14 FiO2 50 01/23/23 11:14 Laboratory Results - last 24 hr 01/21/23 13:56: Chlamy pneumoniae PCR TNP, Adenovirus (PCR) Not detected, B. pertussis DNA (PCR) TNP, Coronavirus OC43 (PCR) Not detected, Coronavirus HKU1 (PCR) Not detected, Coronavirus 229E (PCR) Not detected, SARS-CoV-2 (PCR) Not detected, Coronavirus NL63 (PCR) Not detected, Human Metapneumovir PCR Not detected, Influenza A (H1) PCR Not detected, Influ A (H1N1/09) PCR Not detected, Influenza A (H3) PCR Not detected, Influenza Type A (PCR) Not detected, Influenza Type B (PCR) Not detected, M. pneumoniae (PCR) TNP, Parainfluenza 1 (PCR) Not detected, Parainfluenza 2 (PCR) Not detected, Parainfluenza 3 (PCR) Not detected, Parainfluenza 4 (PCR) Not detected, RSV (PCR) Not detected, Entero/Rhino (PCR) Not detected 01/22/23 11:43: ABG O2 Sat (Measured) 57.8 L, POC VBG O2 Sat (Erlin) 59 L 01/22/23 12:54: Activated Clotting Time > 400 H* 01/22/23 13:52: Activated Clotting Time > 400 H* 01/22/23 15:45: Lactate Dehydrogenase 598, C-Reactive Protein 124.9 H, Procalcitonin 0.197 01/23/23 05:40: WBC 10.2, RBC 4.55 L, Hgb 15.8, Hct 45.5, MCV 99.9 H, MCH 34.6 H, MCHC 34.7, RDW 15.0, Plt Count 176, MPV 8.1, Neut % (Auto) 90.4 H, Lymph % (Auto) 4.9 L, Whitman % (Auto) 4.5, Eos % (Auto) 0.1, Baso % (Auto) 0.1, Neut # (Auto) 9.2 H, Lymph # (Auto) 0.5 L, [place]man # (Auto) 0.5, Eos # (Auto) 0.0, Baso # (Auto) 0.0, Total Counted 100, Neutrophils % (Manual) 89 H, Lymphocytes % (Manual) 7 L, Monocytes % (Manual) 4, Platelet Estimate Normal, RBC Morphology Normal, Sodium 134 L, Potassium 3.8, Chloride 96 L, Carbon Dioxide 26, Anion Gap 15.8 H, BUN 26 H, Creatinine 1.00, Estimated Creat Clear 87, Estimated GFR 74, Est GFR ( Amer) 89, Glucose 158 H, Calcium 8.2 L, Magnesium 2.3, Total Bilirubin 0.6, AST 72 H D, ALT 51 D, Alkaline Phosphatase 85, Total Protein 8.7 H, Albumin 3.6, Globulin 5.1 H, Albumin/Globulin Ratio 0.7 L
--- NOTE | 2023-01-23 15:32 | EXP.ACUTE.PN ---
Subjective *Date: 01/23/23 *Time: 15:32 Interval history: Patient updated with him overnight, 30 L 50%. Gets dyspneic with exertion. Heart cath performed, numerous stents placed (9). No chest pain this morning. Tolerating p.o. intake. Medical Exam Vital signs and Labs for Last 24 Hours: Vital Signs Temp Pulse Pulse Resp BP Pulse Ox O2 Del Method 01/23/23 14:00 85 20 108/63 L 95 Vapotherm 01/23/23 12:00 95 H 20 118/66 94 L Vapotherm 01/23/23 13:00 Vapotherm 01/23/23 11:53 97.7 F 01/23/23 08:00 84 20 105/50 L 95 Vapotherm 01/23/23 10:00 84 20 109/68 L 93 L Vapotherm 01/23/23 11:00 Vapotherm 01/23/23 09:00 Vapotherm 01/23/23 11:14 96 Vapotherm 01/23/23 11:12 77 01/23/23 11:12 77 01/23/23 08:00 90 01/23/23 08:06 Vapotherm 01/23/23 07:38 98.4 F 01/23/23 06:00 93 H 12 98/66 L 94 L Vapotherm 01/23/23 06:00 81 01/23/23 06:00 84 01/23/23 06:00 90 L Vapotherm 01/23/23 04:00 97.7 F 01/23/23 04:00 80 22 106/66 L 89 L Vapotherm 01/23/23 04:00 80 01/23/23 03:00 79 23 114/64 90 L Vapotherm 01/23/23 02:57 Vapotherm 01/23/23 06:50 Vapotherm 01/23/23 05:00 78 18 110/66 91 L Vapotherm 01/23/23 05:00 Vapotherm 01/23/23 04:00 92 L Vapotherm 01/23/23 02:00 69 22 103/65 L 92 L Vapotherm 01/23/23 01:00 91 H 16 98/63 L 91 L Vapotherm 01/22/23 23:00 94 H 16 104/69 L 98 Vapotherm 01/23/23 00:00 80 01/22/23 20:00 85 01/23/23 00:00 98.4 F 90 14 94/55 L 93 L Vapotherm 01/22/23 23:19 63 01/22/23 23:19 63 01/22/23 23:19 95 01/22/23 22:00 73 22 105/55 L 94 L Vapotherm 01/22/23 20:00 98.4 F 84 28 H 99/64 L 98 Vapotherm 01/22/23 20:00 26 H 96 Vapotherm 01/22/23 20:00 98.5 F 01/22/23 18:52 88 24 132/70 98 01/22/23 17:57 94 L Vapotherm 01/22/23 18:00 68 23 95 Vapotherm 01/22/23 17:45 88 21 110/76 95 Vapotherm 01/22/23 18:01 92 H 01/22/23 18:01 91 H 01/22/23 17:57 95 Vapotherm 01/22/23 16:45 86 24 94 L Vapotherm 01/22/23 16:00 80 01/22/23 16:30 81 13 109/64 L 95 Room Air 01/22/23 16:00 71 15 103/87 L 98 Vapotherm O2 Flow Rate FiO2 01/23/23 14:00 20 50 01/23/23 12:00 20 50 01/23/23 13:00 20 01/23/23 11:53 01/23/23 08:00 30 50 01/23/23 10:00 20 50 01/23/23 11:00 20 01/23/23 09:00 30 01/23/23 11:14 20 50 01/23/23 11:12 01/23/23 11:12 01/23/23 08:00 01/23/23 08:06 30 60 01/23/23 07:38 01/23/23 06:00 25 40 01/23/23 06:00 01/23/23 06:00 01/23/23 06:00 40 01/23/23 04:00 01/23/23 04:00 25 40 01/23/23 04:00 01/23/23 03:00 25 40 01/23/23 02:57 25 01/23/23 06:50 25 01/23/23 05:00 25 40 01/23/23 05:00 25 01/23/23 04:00 25 40 01/23/23 02:00 25 40 01/23/23 01:00 25 40 01/22/23 23:00 25 40 01/23/23 00:00 01/22/23 20:00 01/23/23 00:00 40 01/22/23 23:19 01/22/23 23:19 01/22/23 23:19 25 40 01/22/23 22:00 25 50 01/22/23 20:00 25 50 01/22/23 20:00 25 50 01/22/23 20:00 01/22/23 18:52 25 50 01/22/23 17:57 25 60 01/22/23 18:00 25 60 01/22/23 17:45 25 60 01/22/23 18:01 01/22/23 18:01 01/22/23 17:57 25 60 01/22/23 16:45 25 60 01/22/23 16:00 01/22/23 16:30 01/22/23 16:00 Intake and Output 01/22/23 01/23/23 01/23/23 23:59 07:59 15:59 Intake Total 840 / 1350 510 / 780 270 / 780 Output Total 400 / 2100 650 / 1450 800 / 1450 Balance 440 / -750 -140 / -670 -530 / -670 Intake: Intake, Oral Amount 840 / 1350 510 / 780 270 / 780 Output: Output, Urine Amount 400 / 2100 650 / 1450 800 / 1450 Other: Number of Unmeasured Voids 1 Number of Bowel Movements 1 Weight 89.074 kg 89 kg Patient Weight 01/23/23 23
--- NOTE | 2023-01-23 17:20 | PC.NURSE ---
Pt remains on vapotherm. Currently 25L 50%. He gets soa upon exertion and O2 sats decline as low as 70s at times. Pt has had a bath and shaved this shift. Uses urinal to void. No BM this shift. Medication administered per may. Call light within reach. Family at bedside.
[2023-01-24] VITALS (16 sets, daily range): BP systolic 96–126; BP diastolic 44–69; PULSE 68–100; RESP 15–26; TEMP 36.4–37.1; O2SAT 90–99; BMI 27.3
[2023-01-24 06:18] LABS: Basophils % 0.1 % (0.1-2.0); Eosinophils % 0.1 % (0.1-12.0); Hematocrit 42.9 % (42.0-52.0); Hemoglobin 14.7 g/dL (14.1-18.0); Lymphocytes # 0.5 K/mm3 (0.7-4.5); Lymphocytes % 4.5 % (10-50); Mean Corpuscular HGB Conc 34.2 g/dL (31.8-35.4); Mean Corpuscular Hemoglobin 33.9 pg (27.0-31.2); Mean Platelet Volume 8.5 fl (7.4-10.4); Monocytes # 0.7 K/mm3 (0.1-1.0); Monocytes % 6.2 % (1.7-9.3); Neutrophils # 10.4 K/mm3 (1.8-7.8); Neutrophils % 89.1 % (37.0-80.0); Platelet Count 178 K/mm3 (142-424); Red Blood Count 4.33 M/mm3 (4.60-6.20); White Blood Count 11.7 K/mm3 (4.8-10.8)
[2023-01-24 06:25] LABS: MANUAL DIFFERENTIAL MANUAL DIFFERENTIAL (MANUAL DIFF)
[2023-01-24 06:38] LABS: Alanine Aminotransferase 44 U/L (12-78); Albumin Level 3.3 g/dl (3.5-5.0); Albumin/Globulin Ratio 0.7 (1.1-1.8); Alkaline Phosphatase 76 U/L (38-126); Anion Gap 11.1 mEq/L (5-15); Aspartate Amino Transferase 64 U/L (17-59); Bilirubin,Total 0.3 mg/dl (0.2-1.3); Blood Urea Nitrogen 20 mg/dl (9-20); Calcium 8.4 mg/dl (8.4-10.2); Carbon Dioxide 28 mmol/L (22.0-30.0); Chloride 95 mmol/L (98-107); Creatinine Clearance Estimated 86 mL/min (50-200); Estimated Glomerular Filt Rate 96 ml/min (>60); GFR (African American) 116 ML/MIN (>60); Globulin 4.7 g/dL (1.3-3.2); Glucose 149 mg/dl (74-100); Potassium 4.1 mmoL/L (3.5-5.1); Sodium 130 mmol/L (136-145)
[2023-01-24 06:44] LABS: C-Reactive Protein 48.7 mg/L (0-4)
[2023-01-24 07:20] LABS: Magnesium 2.4 mg/dl (1.6-2.3)
[2023-01-24 07:24] LABS: Lymphocytes % 3 % (10-50); Macrocytosis 1+; Monocytes % 4 % (2-9); Neutrophils % 91 % (42-76); Platelet Estimate Normal; Total Cells Counted 100
--- NOTE | 2023-01-24 09:07 | EXP.PULM.PN ---
Subjective *Date: 01/24/23 *Time: 10:17 Interval history: No acute respiratory vents overnight. Patient admits continued improvement in his respiratory symptoms. Pulmonology Exam Inpatient Vital signs and Labs for Last 24 Hours: Temp Pulse Resp BP Pulse Ox O2 Del Method O2 Flow Rate 98 F 87 18 107/59 L 99 Vapotherm 25 01/24/23 08:00 01/24/23 06:00 01/24/23 06:00 01/24/23 06:00 01/24/23 06:00 01/24/23 06:00 01/24/23 06:00 FiO2 50 01/24/23 06:00 Laboratory Results - last 24 hr 01/24/23 05:55: WBC 11.7 H, RBC 4.33 L, Hgb 14.7, Hct 42.9, MCV 99.0 H, MCH 33.9 H, MCHC 34.2, RDW 15.0, Plt Count 178, MPV 8.5, Neut % (Auto) 89.1 H, Lymph % (Auto) 4.5 L, [place] % (Auto) 6.2, Eos % (Auto) 0.1, Baso % (Auto) 0.1, Neut # (Auto) 10.4 H, Lymph # (Auto) 0.5 L, [place] # (Auto) 0.7, Eos # (Auto) 0.0, Baso # (Auto) 0.0, Total Counted 100, Neutrophils % (Manual) 91 H, Band Neutrophils % 2.0, Lymphocytes % (Manual) 3 L, Monocytes % (Manual) 4, Platelet Estimate Normal, Macrocytosis 1+, Sodium 130 L, Potassium 4.1, Chloride 95 L, Carbon Dioxide 28, Anion Gap 11.1, BUN 20, Creatinine 0.80, Estimated Creat Clear 86, Estimated GFR 96, Est GFR ( Amer) 116 D, Glucose 149 H, Calcium 8.4, Magnesium 2.4 H, Total Bilirubin 0.3, AST 64 H, ALT 44, Alkaline Phosphatase 76, C-Reactive Protein 48.7 H D, Total Protein 8.0, Albumin 3.3 L, Globulin 4.7 H, Albumin/Globulin Ratio 0.7 L I & O for Labs for Last 24 Hours: Intake & Output 01/21/23 01/22/23 01/23/23 01/24/23 23:59 23:59 23:59 23:59 Intake Total 840 / 1350 1320 / 2040 1080 / 1080 Output Total 700 / 700 2100 / 2100 1750 / 2100 625 / 625 Balance -700 / -700 -1260 / -750 -430 / -60 455 / 455 Weight 193 lb 6 oz 193 lb 5.526 oz 196 lb 3.382 oz 195 lb 6.331 oz Constitutional: Present severe distress Head: Present normocephalic and atraumatic ENT: Present normal exam, normal oropharynx and mucous membranes moist Neck: Present normal inspection and full ROM Respiratory: Present rales, respiratory distress and able to speak in complete sentences; Absent wheezes or crackles Cardiac: Present S1/S2, Tachycardia and radial pulses present GI: Present soft and distention; Absent tenderness or guarding Skin: Present intact; Absent cyanosis or jaundice Neuro: Present alert, awake and oriented x 3 Extremities: Present normal inspection; Absent clubbing or cyanosis Psychiatric: Present normal affect and cooperative Assessment and Plan *Assessment and plan (1) ILD (interstitial lung disease): Status: Acute Category: Medical Code(s): J84.9 - Interstitial pulmonary disease, unspecified (2) Acute respiratory failure with hypoxia: Status: Acute Category: Medical Code(s): J96.01 - Acute respiratory failure with hypoxia (3) Fibrosis of lung: Status: Acute Category: Medical Code(s): J84.10 - Pulmonary fibrosis, unspecified (4) History of 2019 novel coronavirus disease (COVID-19): Status: Acute Category: Medical Code(s): Z86.16 - Personal history of COVID-19 (5) Pulmonary hypertension: Status: Acute Category: Medical Code(s): I27.20 - Pulmonary hypertension, unspecified Plan Mr. Cruz is a 72-year-old male presented to the ER with worsening respiratory distress the last 2 weeks but has been progressively worsening presented to ER for further evaluation and management. CTA upon admission emphysematous changes with bilateral diffuse groundglass opacities and interstitial thickening. Predominant upper lobe homeycombing changes noted. There noted groundglass opacities and interstitial changes significantly worsened from his most recent CT scan from November 2022. Patient had a CTA performed in 2019 that only showed upper lobe groundglass opacities with NO significant fibrotic changes. CT scan is not consistent with diffuse pulmonary edema COVID-19 and flu PCR negative on this admission. Patient admits
--- NOTE | 2023-01-24 09:12 | XR_ITS ---
FINAL REPORT CLINICAL HISTORY: hypoxia/Pneumonia COMPARISON: 01/21/2023 FINDINGS: A single AP view of the chest was obtained. The cardiac and mediastinal silhouettes are within normal limits. There has been no significant interval change in bilateral mixed interstitial and alveolar opacities. There is no pleural effusion or pneumothorax. IMPRESSION: No significant interval change. Reviewed, Interpreted and Dictated by Karen Dixon MD Transcribed by Mirna Tong Authenticated and [facility]
--- NOTE | 2023-01-24 09:14 | EXP.ACUTE.PN ---
Subjective *Date: 01/24/23 *Time: 17:21 Interval history: Continues to require Vapotherm. Patient getting restless, wanting to go home. Tolerating p.o. intake. Able to transition to bedside commode. Has not had a bowel movement in the past 24 hours. Voiding independently. No nausea or vomiting. Denies any chest pain. Alert and oriented x3. at bedside. Medical Exam Vital signs and Labs for Last 24 Hours: Vital Signs Temp Pulse Pulse Resp BP Pulse Ox O2 Del Method 01/24/23 08:00 98 F 01/24/23 04:00 80 01/24/23 06:00 87 18 107/59 L 99 Vapotherm 01/24/23 05:55 84 01/24/23 05:55 79 01/24/23 05:55 95 Vapotherm 01/24/23 05:00 Vapotherm 01/24/23 04:00 98.1 F 77 15 97/54 L 96 Vapotherm 01/24/23 04:00 95 Vapotherm 01/24/23 03:00 Vapotherm 01/24/23 02:00 82 16 96/53 L 94 L Vapotherm 01/24/23 00:00 90 01/24/23 01:00 Vapotherm 01/24/23 00:00 97.9 F 90 20 105/57 L 97 Vapotherm 01/24/23 00:08 68 01/24/23 00:08 68 01/23/23 23:00 Vapotherm 01/23/23 20:00 80 01/23/23 22:00 76 16 116/47 L 96 Vapotherm 01/23/23 21:00 Vapotherm 01/23/23 20:00 80 15 100/53 L 98 Nasal Cannula 01/23/23 20:00 97 Vapotherm 01/23/23 20:00 99.3 F 01/23/23 18:45 82 01/23/23 18:45 84 01/23/23 18:45 95 Vapotherm 01/23/23 18:39 Vapotherm 01/23/23 18:00 81 19 105/64 L 98 Vapotherm 01/23/23 16:00 90 01/23/23 12:00 90 01/23/23 17:00 Vapotherm 01/23/23 16:00 97.9 F 87 21 101/68 L 97 Vapotherm 01/23/23 15:59 Vapotherm 01/23/23 15:00 Vapotherm 01/23/23 14:00 85 20 108/63 L 95 Vapotherm 01/23/23 12:00 95 H 20 118/66 94 L Vapotherm 01/23/23 13:00 Vapotherm 01/23/23 11:53 97.7 F 01/23/23 10:00 84 20 109/68 L 93 L Vapotherm 01/23/23 11:00 Vapotherm 01/23/23 11:14 96 Vapotherm 01/23/23 11:12 77 01/23/23 11:12 77 O2 Flow Rate FiO2 01/24/23 08:00 01/24/23 04:00 01/24/23 06:00 25 50 01/24/23 05:55 01/24/23 05:55 01/24/23 05:55 25 50 01/24/23 05:00 25 01/24/23 04:00 25 50 01/24/23 04:00 25 50 01/24/23 03:00 25 01/24/23 02:00 25 50 01/24/23 00:00 01/24/23 01:00 25 01/24/23 00:00 25 50 01/24/23 00:08 01/24/23 00:08 01/23/23 23:00 25 01/23/23 20:00 01/23/23 22:00 25 50 01/23/23 21:00 25 01/23/23 20:00 25 50 01/23/23 20:00 25 50 01/23/23 20:00 01/23/23 18:45 01/23/23 18:45 01/23/23 18:45 25 50 01/23/23 18:39 25 01/23/23 18:00 25 50 01/23/23 16:00 01/23/23 12:00 01/23/23 17:00 25 01/23/23 16:00 20 50 01/23/23 15:59 20 50 01/23/23 15:00 20 01/23/23 14:00 20 50 01/23/23 12:00 20 50 01/23/23 13:00 20 01/23/23 11:53 01/23/23 10:00 20 50 01/23/23 11:00 20 01/23/23 11:14 20 50 01/23/23 11:12 01/23/23 11:12 Intake and Output 01/23/23 01/24/23 01/24/23 23:59 07:59 15:59 Intake Total 540 / 2040 720 / 1080 360 / 1080 Output Total 625 / 625 0 / 625 Balance 540 / -60 95 / 455 360 / 455 Intake: Intake, Oral Amount 540 / 2040 720 / 1080 360 / 1080 Output: Output, Urine Amount 625 / 625 0 / 625 Other: Number of Voids 0 Number of Unmeasured Voids 0 Weight 88.63 kg Patient Weight 01/24/23 23:59 Weight 88.63 kg Laboratory Results - last 24 hr 01/24/23 05:55: WBC 11.7 H, RBC 4.33 L, Hgb 14.7, Hct 42.9, MCV 99.0 H, MCH 33.9 H, MCHC 34.2, RDW 15.0, Plt Count 178, MPV 8.5, Neut % (Auto) 89.1 H, Lymph % (Auto) 4.5 L, Starke % (Auto) 6.2, Eos % (Auto) 0.1, Baso % (Auto) 0.1, Neut # (Auto) 10.4 H, Lymph # (Auto) 0.5 L, Starke # (Auto) 0.7, Eos # (Auto) 0.0, Baso # (Auto) 0.0, Total Counted 100, Neutrophils % (Manual) 91 H, Band Neutrophils % 2.0, Lymphocytes % (Manual) 3 L, Monocytes % (Manual) 4, Pl
--- NOTE | 2023-01-24 11:56 | EXP.CARD.PN ---
Subjective Subjective Date: 01/24/23 Time: 09:30 Principal diagnosis: nonstemi, CAD Interval history: This is a 72-year-old white gentleman who presented to the emergency department complaints of shortness of breath. He was initially treated for pulmonary edema and acute exacerbation of HFpEF. The patient did have an elevated troponin consistent with a non-STEMI. He underwent left and right cardiac catheterization. The patient had diffuse calcific coronary artery disease with multivessel stenting to the left main, proximal circumflex, proximal LAD, and stents to the right axillary. The patient had a right cardiac catheterization which showed that his pulmonary artery occlusion pressure was 8 mmHg indicating that he was euvolemic or even on the rotary drier feeder side. The patient was also evaluated by pulmonology and was found to have chronic pulmonary fibrosis and interstitial lung disease, and ruled out that the patient had pulmonary edema. This morning he is still having shortness of breath. He remains on a Vapotherm at 50%. He does state that his breathing is better but not completely back to his baseline. He denies any chest pain or pressure. He denies any lower extremity edema. He denies any fever, chills, nausea, vomiting, diarrhea, PND orthopnea. The patient states multiple times that he is ready to go home but we had long discussions with him about his current oxygenation and pulmonary status and he is not optimized from a pulmonology standpoint to discharge at this time. Exam Data for Last 24 hours Vital signs and Labs for Last 24 Hours: Temp Pulse Resp BP Pulse Ox O2 Del Method O2 Flow Rate 98 F 79 25 H 109/56 L 97 Venturi Mask 15 01/24/23 08:00 01/24/23 11:51 01/24/23 10:00 01/24/23 10:00 01/24/23 11:51 01/24/23 11:51 01/24/23 11:51 FiO2 50 01/24/23 11:51 Laboratory Results - last 24 hr 01/24/23 05:55: WBC 11.7 H, RBC 4.33 L, Hgb 14.7, Hct 42.9, MCV 99.0 H, MCH 33.9 H, MCHC 34.2, RDW 15.0, Plt Count 178, MPV 8.5, Neut % (Auto) 89.1 H, Lymph % (Auto) 4.5 L, [place] % (Auto) 6.2, Eos % (Auto) 0.1, Baso % (Auto) 0.1, Neut # (Auto) 10.4 H, Lymph # (Auto) 0.5 L, [place] # (Auto) 0.7, Eos # (Auto) 0.0, Baso # (Auto) 0.0, Total Counted 100, Neutrophils % (Manual) 91 H, Band Neutrophils % 2.0, Lymphocytes % (Manual) 3 L, Monocytes % (Manual) 4, Platelet Estimate Normal, Macrocytosis 1+, Sodium 130 L, Potassium 4.1, Chloride 95 L, Carbon Dioxide 28, Anion Gap 11.1, BUN 20, Creatinine 0.80, Estimated Creat Clear 86, Estimated GFR 96, Est GFR ( Amer) 116 D, Glucose 149 H, Calcium 8.4, Magnesium 2.4 H, Total Bilirubin 0.3, AST 64 H, ALT 44, Alkaline Phosphatase 76, C-Reactive Protein 48.7 H D, Total Protein 8.0, Albumin 3.3 L, Globulin 4.7 H, Albumin/Globulin Ratio 0.7 L I & O for Last 24 hours: Intake & Output 01/21/23 01/22/23 01/23/23 01/24/23 23:59 23:59 23:59 23:59 Intake Total 840 / 1350 1320 / 2040 1080 / 1080 Output Total 700 / 700 2100 / 2100 1750 / 2100 625 / 625 Balance -700 / -700 -1260 / -750 -430 / -60 455 / 455 Weight 193 lb 6 oz 193 lb 5.526 oz 196 lb 3.382 oz 195 lb 6.331 oz Microbiology Reports for the Last 24 Hours: Microbiology 01/21/23 15:09 Blood Blood Culture - Preliminary 01/21/23 13:40 Blood Blood Culture - Preliminary Constitutional Constitutional: no acute distress and average body habitus *Routine HEENT Exam Head: Present normocephalic and atraumatic ENT: Present mucous membranes moist *Routine Neck Exam Neck: Present supple, full ROM and normal carotid upstroke; Absent JVD, carotid bruit or lymphadenopathy *Routine Respiratory Exam Respiratory: Present rales, wheezes and symmetric chest movement *Routine Cardiovascular Exam Cardiovascular: Present RRR, Normal S1 and Normal S2; Absent murmur or gallop *Routine Abdominal Exam Abdominal: Present soft and normoactive bowel sounds; Absent tenderness, distended or organomegaly *Routine Extremities Exam Extremities: Present full ROM
[2023-01-25] VITALS (15 sets, daily range): BP systolic 87–119; BP diastolic 52–66; PULSE 60–100; RESP 18–22; TEMP 36.5–37.2; O2SAT 88–96; BMI 27.3
--- NOTE | 2023-01-25 05:13 | PC.NURSE ---
Patient has has a good night tonight. Has not complained of pain or being SOB. Remains on the Venti mask at 40% and 12L. and AxO. Has has a dry, strong, non productive cough during the shift. No other issues noted.
[2023-01-25 06:53] LABS: Basophils % 0.1 % (0.1-2.0); Eosinophils # 0.1 K/mm3 (0.0-0.4); Eosinophils % 0.3 % (0.1-12.0); Hematocrit 47.5 % (42.0-52.0); Hemoglobin 16.3 g/dL (14.1-18.0); Lymphocytes # 0.5 K/mm3 (0.7-4.5); Lymphocytes % 3.4 % (10-50); Mean Corpuscular HGB Conc 34.3 g/dL (31.8-35.4); Mean Corpuscular Hemoglobin 34.6 pg (27.0-31.2); Mean Corpuscular Volume 100.8 fl (80-94); Monocytes # 0.6 K/mm3 (0.1-1.0); Monocytes % 4.2 % (1.7-9.3); Neutrophils # 12.1 K/mm3 (1.8-7.8); Neutrophils % 91.9 % (37.0-80.0); Platelet Count 145 K/mm3 (142-424); Red Blood Count 4.72 M/mm3 (4.60-6.20); Red Cell Distribution Width 14.9 % (11.5-17.5); White Blood Count 13.1 K/mm3 (4.8-10.8)
[2023-01-25 06:58] LABS: MANUAL DIFFERENTIAL MANUAL DIFFERENTIAL (MANUAL DIFF)
[2023-01-25 07:09] LABS: Alanine Aminotransferase 51 U/L (12-78); Albumin Level 3.5 g/dl (3.5-5.0); Albumin/Globulin Ratio 0.7 (1.1-1.8); Alkaline Phosphatase 64 U/L (38-126); Anion Gap 12.8 mEq/L (5-15); Aspartate Amino Transferase 89 U/L (17-59); Bilirubin,Total 0.8 mg/dl (0.2-1.3); Blood Urea Nitrogen 23 mg/dl (9-20); Calcium 8.3 mg/dl (8.4-10.2); Carbon Dioxide 24 mmol/L (22.0-30.0); Chloride 98 mmol/L (98-107); Creatinine Clearance Estimated 86 mL/min (50-200); Estimated Glomerular Filt Rate 96 ml/min (>60); GFR (African American) 116 ML/MIN (>60); Globulin 4.9 g/dL (1.3-3.2); Glucose 131 mg/dl (74-100); Potassium 4.8 mmoL/L (3.5-5.1); Sodium 130 mmol/L (136-145); Total Protein,Serum 8.4 g/dl (6.3-8.2)
[2023-01-25 07:10] LABS: Lymphocytes % 7 % (10-50); Monocytes % 2 % (2-9); Neutrophils % 91 % (42-76); Total Cells Counted 100
[2023-01-25 07:11] LABS: Platelet Estimate Normal; RBC Morphology Normal
[2023-01-25 07:14] LABS: C-Reactive Protein 24.6 mg/L (0-4)
[2023-01-25 07:34] LABS: Magnesium 2.4 mg/dl (1.6-2.3)
--- NOTE | 2023-01-25 08:36 | EXP.PHA.PN ---
Subjective *Date: 01/25/23 *Time: 08:36 Medical Exam Vital signs and Labs for Last 24 Hours: Vital Signs Temp Pulse Pulse Resp BP Pulse Ox O2 Del Method 01/25/23 08:00 85 01/25/23 08:00 Venturi Mask 01/25/23 08:00 97.9 F 01/25/23 08:00 79 20 87/66 L 90 L Venturi Mask 01/25/23 05:40 72 01/25/23 05:40 70 01/25/23 05:40 95 Venturi Mask 01/25/23 04:00 60 01/25/23 00:00 70 01/24/23 20:00 80 01/25/23 00:55 73 01/25/23 00:55 70 01/24/23 23:00 Venturi Mask 01/25/23 06:47 Venturi Mask 01/25/23 06:00 84 20 99/54 L 93 L Venturi Mask 01/25/23 05:00 Venturi Mask 01/25/23 04:00 98.1 F 75 20 114/57 L 93 L Venturi Mask 01/25/23 03:44 Venturi Mask 01/25/23 03:00 Nasal Cannula 01/25/23 02:00 75 20 102/60 L 92 L Venturi Mask 01/25/23 01:00 Venturi Mask 01/25/23 00:00 98.4 F 75 21 115/64 94 L Venturi Mask 01/24/23 22:00 82 19 112/67 94 L Room Air 01/24/23 21:00 Venturi Mask 01/24/23 20:00 97.9 F 82 23 102/54 L 93 L Venturi Mask 01/24/23 20:00 Venturi Mask 01/24/23 18:31 Venturi Mask 01/24/23 18:00 84 103/59 L 95 Venturi Mask 01/24/23 18:07 82 01/24/23 18:07 82 01/24/23 18:07 92 L Venturi Mask 01/24/23 16:00 90 01/24/23 17:00 Venturi Mask 01/24/23 16:00 97.5 F L 01/24/23 16:00 81 24 120/69 94 L Venturi Mask 01/24/23 16:00 Venturi Mask 01/24/23 16:00 98.7 F 01/24/23 14:59 Venturi Mask 01/24/23 14:00 84 26 H 103/44 L 90 L Venturi Mask 01/24/23 12:00 81 21 126/67 94 L Venturi Mask 01/24/23 12:00 90 01/24/23 12:00 98.2 F 01/24/23 11:51 79 01/24/23 11:51 79 01/24/23 11:51 97 Venturi Mask 01/24/23 09:00 Vapotherm 01/24/23 10:00 86 25 H 109/56 L 98 Venturi Mask O2 Flow Rate FiO2 01/25/23 08:00 01/25/23 08:00 12 40 01/25/23 08:00 01/25/23 08:00 12 01/25/23 05:40 01/25/23 05:40 01/25/23 05:40 12 40 01/25/23 04:00 01/25/23 00:00 01/24/23 20:00 01/25/23 00:55 01/25/23 00:55 01/24/23 23:00 12 01/25/23 06:47 12 01/25/23 06:00 12 40 01/25/23 05:00 12 01/25/23 04:00 12 40 01/25/23 03:44 12 40 01/25/23 03:00 2 01/25/23 02:00 12 01/25/23 01:00 12 01/25/23 00:00 12 40 01/24/23 22:00 01/24/23 21:00 12 01/24/23 20:00 12 40 01/24/23 20:00 12 40 01/24/23 18:31 12 01/24/23 18:00 12 40 01/24/23 18:07 01/24/23 18:07 01/24/23 18:07 40 01/24/23 16:00 01/24/23 17:00 12 01/24/23 16:00 01/24/23 16:00 12 40 01/24/23 16:00 12 40 01/24/23 16:00 01/24/23 14:59 40 01/24/23 14:00 40 01/24/23 12:00 40 01/24/23 12:00 01/24/23 12:00 01/24/23 11:51 01/24/23 11:51 01/24/23 11:51 15 50 01/24/23 09:00 25 01/24/23 10:00 50 Intake and Output 01/24/23 01/25/23 01/25/23 23:59 07:59 15:59 Intake Total 270 / 1670 50 / 530 480 / 530 Output Total 550 / 1575 400 / 400 Balance -280 / 95 -350 / 130 480 / 130 Intake: Intake, Oral Amount 270 / 1670 50 / 530 480 / 530 Output: Output, Urine Amount 550 / 1575 400 / 400 Other: Number of Unmeasured Voids 0 Weight 88.61 kg Patient Weight 01/25/23 23:59 Weight 88.61 kg Laboratory Results - last 24 hr 01/25/23 06:25: WBC 13.1 H, RBC 4.72, Hgb 16.3, Hct 47.5, MCV 100.8 H, MCH 34.6 H, MCHC 34.3, RDW 14.9, Plt Count 145, MPV 9.0, Neut % (Auto) 91.9 H, Lymph % (Auto) 3.4 L, [place] % (Auto) 4.2, Eos % (Auto) 0.3, Baso % (Auto) 0.1, Neut # (Auto) 12.1 H, Lymph # (Auto) 0.5 L, [place] # (Auto) 0.6, Eos # (Auto) 0.1, Baso # (Auto) 0.0, Total Counted 100, Neutrophils % (Manual) 91 H, Lymphocytes % (Manual) 7 L, Monocytes % (Manual) 2, Platelet Estimate Normal, RBC Morphology Normal, Sodium 130 L, Potassium 4.8, Chloride 98,
--- NOTE | 2023-01-25 08:50 | PC.NURSE ---
COURTESY NOTE: morning round completed on pt. pt denies any assistance needs. no new pt requests at this time. Tanika SRNA
--- NOTE | 2023-01-25 09:17 | EXP.PULM.PN ---
Subjective *Date: 01/25/23 *Time: 10:36 Interval history: No acute respiratory vents overnight. Patient denies any worsening respiratory symptoms. Improvement in his symptoms. Pulmonology Exam Inpatient Vital signs and Labs for Last 24 Hours: Temp Pulse Resp BP Pulse Ox O2 Del Method O2 Flow Rate 97.9 F 79 20 87/66 L 90 L Venturi Mask 12 01/25/23 08:00 01/25/23 08:00 01/25/23 08:00 01/25/23 08:00 01/25/23 08:00 01/25/23 08:59 01/25/23 08:59 FiO2 40 01/25/23 08:00 Laboratory Results - last 24 hr 01/25/23 06:25: WBC 13.1 H, RBC 4.72, Hgb 16.3, Hct 47.5, MCV 100.8 H, MCH 34.6 H, MCHC 34.3, RDW 14.9, Plt Count 145, MPV 9.0, Neut % (Auto) 91.9 H, Lymph % (Auto) 3.4 L, [place] % (Auto) 4.2, Eos % (Auto) 0.3, Baso % (Auto) 0.1, Neut # (Auto) 12.1 H, Lymph # (Auto) 0.5 L, [place] # (Auto) 0.6, Eos # (Auto) 0.1, Baso # (Auto) 0.0, Total Counted 100, Neutrophils % (Manual) 91 H, Lymphocytes % (Manual) 7 L, Monocytes % (Manual) 2, Platelet Estimate Normal, RBC Morphology Normal, Sodium 130 L, Potassium 4.8, Chloride 98, Carbon Dioxide 24, Anion Gap 12.8, BUN 23 H, Creatinine 0.80, Estimated Creat Clear 86, Estimated GFR 96, Est GFR ( Amer) 116, Glucose 131 H, Calcium 8.3 L, Magnesium 2.4 H, Total Bilirubin 0.8, AST 89 H D, ALT 51, Alkaline Phosphatase 64, C-Reactive Protein 24.6 H D, Total Protein 8.4 H, Albumin 3.5, Globulin 4.9 H, Albumin/Globulin Ratio 0.7 L I & O for Labs for Last 24 Hours: Intake & Output 01/22/23 01/23/23 01/24/23 01/25/23 23:59 23:59 23:59 23:59 Intake Total 840 / 1350 1320 / 2040 1620 / 1670 530 / 530 Output Total 2099 / 2100 1175 / 1575 400 / 400 Balance -1260 / -750 -430 / -60 445 / 95 130 / 130 Weight 193 lb 5.526 oz 196 lb 3.382 oz 195 lb 6.331 oz 195 lb 5.626 oz Microbiology Reports for the Last 24 Hours: Microbiology 01/21/23 15:09 Blood Blood Culture - Preliminary 01/21/23 13:40 Blood Blood Culture - Preliminary Constitutional: Present moderate distress Head: Present normocephalic and atraumatic ENT: Present normal exam, normal oropharynx and mucous membranes moist Neck: Present normal inspection and full ROM Respiratory: Present rales, respiratory distress and able to speak in complete sentences; Absent wheezes or crackles Cardiac: Present S1/S2, Tachycardia and radial pulses present GI: Present soft and distention; Absent tenderness or guarding Skin: Present intact; Absent cyanosis or jaundice Neuro: Present alert, awake and oriented x 3 Extremities: Present normal inspection and clubbing; Absent cyanosis Psychiatric: Present normal affect and cooperative Assessment and Plan *Assessment and plan (1) ILD (interstitial lung disease): Status: Acute Category: Medical Code(s): J84.9 - Interstitial pulmonary disease, unspecified (2) Acute respiratory failure with hypoxia: Status: Acute Category: Medical Code(s): J96.01 - Acute respiratory failure with hypoxia (3) Fibrosis of lung: Status: Acute Category: Medical Code(s): J84.10 - Pulmonary fibrosis, unspecified (4) History of 2019 novel coronavirus disease (COVID-19): Status: Acute Category: Medical Code(s): Z86.16 - Personal history of COVID-19 (5) Pulmonary hypertension: Status: Acute Category: Medical Code(s): I27.20 - Pulmonary hypertension, unspecified Plan Mr. Cruz is a 72-year-old male presented to the ER with worsening respiratory distress the last 2 weeks but has been progressively worsening presented to ER for further evaluation and management. CTA upon admission emphysematous changes with bilateral diffuse groundglass opacities and interstitial thickening. Predominant upper lobe homeycombing changes noted. There noted groundglass opacities and interstitial changes significantly worsened from his most recent CT scan from November 2022. Patient had a CTA performed in 2019 that only showed up
--- NOTE | 2023-01-25 09:47 | EXP.CARD.PN ---
Subjective Subjective Date: 01/25/23 Time: 09:00 Principal diagnosis: nonstemi, CAD Interval history: This is a 72-year-old white gentleman who presented to the emergency department complaints of shortness of breath. The patient was found to have HFpEF and a non-STEMI. He underwent left and right cardiac catheterization and had multivessel stenting. The patient tolerated this procedure well and will be on Plavix and aspirin for dual antiplatelet therapy. His right cardiac catheterization showed that the patient was not in pulmonary edema and was actually euvolemic or a little bit on the dry side. The patient has chronic pulmonary fibrosis and interstitial lung disease. This morning he states that he is feeling much better. He states his shortness of breath has significantly improved. He denies any chest pain or pressure. He denies any lower extremity edema. He denies any fever, chills, nausea, vomiting, diarrhea, PND orthopnea. Exam Data for Last 24 hours Vital signs and Labs for Last 24 Hours: Temp Pulse Resp BP Pulse Ox O2 Del Method O2 Flow Rate 97.9 F 79 20 87/66 L 90 L Venturi Mask 12 01/25/23 08:00 01/25/23 08:00 01/25/23 08:00 01/25/23 08:00 01/25/23 08:00 01/25/23 08:59 01/25/23 08:59 FiO2 40 01/25/23 08:00 Laboratory Results - last 24 hr 01/25/23 06:25: WBC 13.1 H, RBC 4.72, Hgb 16.3, Hct 47.5, MCV 100.8 H, MCH 34.6 H, MCHC 34.3, RDW 14.9, Plt Count 145, MPV 9.0, Neut % (Auto) 91.9 H, Lymph % (Auto) 3.4 L, [place] % (Auto) 4.2, Eos % (Auto) 0.3, Baso % (Auto) 0.1, Neut # (Auto) 12.1 H, Lymph # (Auto) 0.5 L, [place] # (Auto) 0.6, Eos # (Auto) 0.1, Baso # (Auto) 0.0, Total Counted 100, Neutrophils % (Manual) 91 H, Lymphocytes % (Manual) 7 L, Monocytes % (Manual) 2, Platelet Estimate Normal, RBC Morphology Normal, Sodium 130 L, Potassium 4.8, Chloride 98, Carbon Dioxide 24, Anion Gap 12.8, BUN 23 H, Creatinine 0.80, Estimated Creat Clear 86, Estimated GFR 96, Est GFR ( Amer) 116, Glucose 131 H, Calcium 8.3 L, Magnesium 2.4 H, Total Bilirubin 0.8, AST 89 H D, ALT 51, Alkaline Phosphatase 64, C-Reactive Protein 24.6 H D, Total Protein 8.4 H, Albumin 3.5, Globulin 4.9 H, Albumin/Globulin Ratio 0.7 L I & O for Last 24 hours: Intake & Output 01/22/23 01/23/23 01/24/23 01/25/23 23:59 23:59 23:59 23:59 Intake Total 840 / 1350 1320 / 2040 1620 / 1670 530 / 530 Output Total 2099 / 2099 1750 / 2099 1175 / 1575 400 / 400 Balance -1260 / -750 -430 / -60 445 / 95 130 / 130 Weight 193 lb 5.526 oz 196 lb 3.382 oz 195 lb 6.331 oz 195 lb 5.626 oz Microbiology Reports for the Last 24 Hours: Microbiology 01/21/23 15:09 Blood Blood Culture - Preliminary 01/21/23 13:40 Blood Blood Culture - Preliminary Constitutional Constitutional: no acute distress and average body habitus *Routine HEENT Exam Head: Present normocephalic and atraumatic ENT: Present mucous membranes moist *Routine Neck Exam Neck: Present supple, full ROM and normal carotid upstroke; Absent JVD, carotid bruit or lymphadenopathy *Routine Respiratory Exam Respiratory: Present rales, wheezes and symmetric chest movement *Routine Cardiovascular Exam Cardiovascular: Present RRR, Normal S1 and Normal S2; Absent murmur or gallop *Routine Abdominal Exam Abdominal: Present soft and normoactive bowel sounds; Absent tenderness, distended or organomegaly *Routine Extremities Exam Extremities: Present full ROM, pulses intact and normal capillary refill; Absent cyanosis, clubbing or edema *Routine Skin Exam Skin: Present intact and warm; Absent erythema *Routine Neurological Exam Neurological: Present alert, oriented X3 and CN II-XII intact; Absent sensory deficit or motor deficit Routine Psychiatric Exam Psychiatric: Present normal affect Progress Note: A&P Assessment and plan (1) Non-STEMI (non-ST elevated myocardial infarction): Status: Acute (2) CAD in [place] artery: Status: Acute (3) Right-sided heart failure: Status: Acu
--- NOTE | 2023-01-25 16:38 | EXP.ACUTE.PN ---
Subjective *Date: 01/25/23 *Time: 16:38 Interval history: Patient again asked if he can go home today. Explained that his oxygen requirement is still too high. Able to transition to nasal cannula this morning on rounds. No nausea or vomiting. Good p.o. intake. No bowel movement in at least 24 hours. Denies any chest pain, nausea, vomiting. Afebrile. Medical Exam Vital signs and Labs for Last 24 Hours: Vital Signs Temp Pulse Pulse Resp BP Pulse Ox O2 Del Method 01/25/23 14:56 Nasal Cannula 01/25/23 12:00 100 H 01/25/23 12:39 Nasal Cannula 01/25/23 11:00 Nasal Cannula 01/25/23 11:40 89 22 110/52 L 92 L Nasal Cannula 01/25/23 11:39 88 18 01/25/23 11:39 88 01/25/23 11:39 89 01/25/23 10:00 69 18 119/64 90 L Venturi Mask 01/25/23 10:00 97.7 F 01/25/23 08:59 Venturi Mask 01/25/23 08:00 85 01/25/23 08:00 Venturi Mask 01/25/23 08:00 97.9 F 01/25/23 08:00 79 20 87/66 L 90 L Venturi Mask 01/25/23 05:40 72 01/25/23 05:40 70 01/25/23 05:40 95 Venturi Mask 01/25/23 04:00 60 01/25/23 00:00 70 01/24/23 20:00 80 01/25/23 00:55 73 01/25/23 00:55 70 01/24/23 23:00 Venturi Mask 01/25/23 06:47 Venturi Mask 01/25/23 06:00 84 20 99/54 L 93 L Venturi Mask 01/25/23 05:00 Venturi Mask 01/25/23 04:00 98.1 F 75 20 114/57 L 93 L Venturi Mask 01/25/23 03:44 Venturi Mask 01/25/23 03:00 Nasal Cannula 01/25/23 02:00 75 20 102/60 L 92 L Venturi Mask 01/25/23 01:00 Venturi Mask 01/25/23 00:00 98.4 F 75 21 115/64 94 L Venturi Mask 01/24/23 22:00 82 19 112/67 94 L Room Air 01/24/23 21:00 Venturi Mask 01/24/23 20:00 97.9 F 82 23 102/54 L 93 L Venturi Mask 01/24/23 20:00 Venturi Mask 01/24/23 18:31 Venturi Mask 01/24/23 18:00 84 103/59 L 95 Venturi Mask 01/24/23 18:07 82 01/24/23 18:07 82 01/24/23 18:07 92 L Venturi Mask 01/24/23 17:00 Venturi Mask O2 Flow Rate FiO2 01/25/23 14:56 6 01/25/23 12:00 01/25/23 12:39 6 01/25/23 11:00 6 01/25/23 11:40 01/25/23 11:39 01/25/23 11:39 01/25/23 11:39 01/25/23 10:00 12 40 01/25/23 10:00 01/25/23 08:59 12 01/25/23 08:00 01/25/23 08:00 12 40 01/25/23 08:00 01/25/23 08:00 12 01/25/23 05:40 01/25/23 05:40 01/25/23 05:40 12 40 01/25/23 04:00 01/25/23 00:00 01/24/23 20:00 01/25/23 00:55 01/25/23 00:55 01/24/23 23:00 12 01/25/23 06:47 12 01/25/23 06:00 12 40 01/25/23 05:00 12 01/25/23 04:00 12 40 01/25/23 03:44 12 40 01/25/23 03:00 2 01/25/23 02:00 12 01/25/23 01:00 12 01/25/23 00:00 12 40 01/24/23 22:00 01/24/23 21:00 12 01/24/23 20:00 12 40 01/24/23 20:00 12 40 01/24/23 18:31 12 01/24/23 18:00 12 40 01/24/23 18:07 01/24/23 18:07 01/24/23 18:07 40 01/24/23 17:00 12 Intake and Output 01/25/23 01/25/23 01/25/23 07:59 15:59 23:59 Intake Total 50 / 1010 960 / 1010 Output Total 400 / 850 450 / 850 Balance -350 / 160 510 / 160 Intake: Intake, Oral Amount 50 / 1010 960 / 1010 Output: Output, Urine Amount 400 / 850 450 / 850 Other: Number of Voids 1 Weight 88.61 kg Patient Weight 01/25/23 23:59 Weight 88.61 kg Laboratory Results - last 24 hr 01/25/23 06:25: WBC 13.1 H, RBC 4.72, Hgb 16.3, Hct 47.5, MCV 100.8 H, MCH 34.6 H, MCHC 34.3, RDW 14.9, Plt Count 145, MPV 9.0, Neut % (Auto) 91.9 H, Lymph % (Auto) 3.4 L, [place] % (Auto) 4.2, Eos % (Auto) 0.3, Baso % (Auto) 0.1, Neut # (Auto) 12.1 H, Lymph # (Auto) 0.5 L, [place] # (Auto) 0.6, Eos # (Auto) 0.1, Baso # (Auto) 0.0, Total Counted 100, Neutrophils % (Manual) 91 H, Lymphocytes % (Manual) 7 L, Monocytes % (Manual) 2, Platelet Estimate Normal, RBC Morphology Normal, Sodium 130 L, P
--- NOTE | 2023-01-25 16:43 | PC.NURSE ---
PT IS RESTING IN BED. ALERT AND ORIENTED X4. EATING AND DRINKING WELL. PT WAS SWITCHED OVER TO 6 L NC AT 1000 THIS MORNING. PT'S O2 SATURATION HAS MAINTAINED 93-98%. PT HAS BEEN WEANED TO 4 L WITH O2 SATURATION MAINTAINING 92-96%. PT WILL DESATT TO THE 80'S WITH MINIMAL EXERTION. LUNG SOUNDS DIMINISHED WITH FINE CRACKLES (BASES). ABDOMEN SOFT/NON TENDER WITH ACTIVE BOWEL SOUNDS. PT HAD A LARGE BOWEL MOVEMENT THIS AFTERNOON. WILL CONTINUE TO MONITOR.
[2023-01-26] VITALS (15 sets, daily range): BP systolic 103–116; BP diastolic 50–65; PULSE 63–90; RESP 18–23; TEMP 36.5–37; O2SAT 85–99; BMI 27.3
[2023-01-26 07:25] LABS: Basophils % 0.1 % (0.1-2.0); Eosinophils % 0.1 % (0.1-12.0); Hematocrit 41.9 % (42.0-52.0); Hemoglobin 14.1 g/dL (14.1-18.0); Lymphocytes # 1.9 K/mm3 (0.7-4.5); Lymphocytes % 12.3 % (10-50); Mean Corpuscular HGB Conc 33.6 g/dL (31.8-35.4); Mean Corpuscular Hemoglobin 33.4 pg (27.0-31.2); Mean Corpuscular Volume 99.5 fl (80-94); Mean Platelet Volume 6.9 fl (7.4-10.4); Monocytes % 6.7 % (1.7-9.3); Neutrophils # 12.1 K/mm3 (1.8-7.8); Neutrophils % 80.7 % (37.0-80.0); Platelet Count 233 K/mm3 (142-424); Red Blood Count 4.21 M/mm3 (4.60-6.20); Red Cell Distribution Width 14.8 % (11.5-17.5); White Blood Count 14.9 K/mm3 (4.8-10.8)
[2023-01-26 07:51] LABS: Alanine Aminotransferase 56 U/L (12-78); Albumin Level 3.3 g/dl (3.5-5.0); Albumin/Globulin Ratio 0.8 (1.1-1.8); Alkaline Phosphatase 71 U/L (38-126); Anion Gap 8.6 mEq/L (5-15); Aspartate Amino Transferase 65 U/L (17-59); Bilirubin,Total 0.4 mg/dl (0.2-1.3); Blood Urea Nitrogen 21 mg/dl (9-20); Calcium 8.5 mg/dl (8.4-10.2); Carbon Dioxide 32 mmol/L (22.0-30.0); Chloride 96 mmol/L (98-107); Creatinine Clearance Estimated 86 mL/min (50-200); Estimated Glomerular Filt Rate 96 ml/min (>60); GFR (African American) 116 ML/MIN (>60); Globulin 4.3 g/dL (1.3-3.2); Glucose 94 mg/dl (74-100); Potassium 4.6 mmoL/L (3.5-5.1); Sodium 132 mmol/L (136-145); Total Protein,Serum 7.6 g/dl (6.3-8.2)
--- NOTE | 2023-01-26 09:38 | EXP.ACUTE.PN ---
Subjective *Date: 01/26/23 *Time: 15:04 Interval history: Continues to be short of breath. Is on nasal cannula overnight but had to go up to 6 L. Sats in the mid to high 90s, transition back to Ventimask this morning at 50%. Patient continues to ask to go home but is quickly hypoxic with any movement or exertion. Necessitating oxygen level not reproducible in the outpatient setting. Denies any fever. Still having cough. No nausea or vomiting. Denies any chest pain Medical Exam Vital signs and Labs for Last 24 Hours: Vital Signs Temp Pulse Pulse Resp BP Pulse Ox O2 Del Method 01/26/23 08:43 Venturi Mask 01/26/23 07:32 98.0 F 63 23 115/65 85 L Nasal Cannula 01/26/23 06:15 74 01/26/23 06:15 78 01/26/23 06:15 91 L Nasal Cannula 01/26/23 04:00 97.8 F 73 20 103/57 L 90 L Nasal Cannula 01/26/23 04:00 78 01/26/23 06:49 Nasal Cannula 01/26/23 05:00 Nasal Cannula 01/26/23 03:00 Nasal Cannula 01/26/23 00:00 78 01/26/23 00:00 98.6 F 74 18 103/50 L 99 Nasal Cannula 01/26/23 00:01 70 01/26/23 00:01 78 01/25/23 20:00 78 01/26/23 01:00 Nasal Cannula 01/25/23 23:00 Nasal Cannula 01/25/23 21:00 Nasal Cannula 01/25/23 19:51 Nasal Cannula 01/25/23 19:44 98.9 F 76 18 108/55 L 96 Nasal Cannula 01/25/23 18:23 Nasal Cannula 01/25/23 17:57 78 01/25/23 17:57 78 01/25/23 17:57 88 L Nasal Cannula 01/25/23 17:00 Nasal Cannula 01/25/23 16:00 80 01/25/23 16:00 97.8 F 85 18 104/55 L 96 Nasal Cannula 01/25/23 14:56 Nasal Cannula 01/25/23 12:00 100 H 01/25/23 12:39 Nasal Cannula 01/25/23 11:00 Nasal Cannula 01/25/23 11:40 89 22 110/52 L 92 L Nasal Cannula 01/25/23 11:39 88 18 01/25/23 11:39 88 01/25/23 11:39 89 01/25/23 10:00 69 18 119/64 90 L Venturi Mask 01/25/23 10:00 97.7 F O2 Flow Rate FiO2 01/26/23 08:43 01/26/23 07:32 4 01/26/23 06:15 01/26/23 06:15 01/26/23 06:15 5 01/26/23 04:00 4 01/26/23 04:00 01/26/23 06:49 5 01/26/23 05:00 5 01/26/23 03:00 4 01/26/23 00:00 01/26/23 00:00 4 01/26/23 00:01 01/26/23 00:01 01/25/23 20:00 01/26/23 01:00 4 01/25/23 23:00 4 01/25/23 21:00 4 01/25/23 19:51 4 01/25/23 19:44 4 01/25/23 18:23 4 01/25/23 17:57 01/25/23 17:57 01/25/23 17:57 6 01/25/23 17:00 4 01/25/23 16:00 01/25/23 16:00 6 01/25/23 14:56 6 01/25/23 12:00 01/25/23 12:39 6 01/25/23 11:00 6 01/25/23 11:40 01/25/23 11:39 01/25/23 11:39 01/25/23 11:39 01/25/23 10:00 12 40 01/25/23 10:00 Intake and Output 01/25/23 01/26/23 01/26/23 23:59 07:59 15:59 Intake Total 480 / 1790 570 / 570 Output Total 400 / 1450 200 / 200 Balance 80 / 340 370 / 370 Intake: Intake, Oral Amount 480 / 1790 570 / 570 Output: Output, Urine Amount 400 / 1450 200 / 200 Other: Number of Voids 2 Number of Unmeasured Voids 0 Weight 88.451 kg Patient Weight 01/26/23 23:59 Weight 88.451 kg Laboratory Results - last 24 hr 01/26/23 06:51: WBC 14.9 H, RBC 4.21 L, Hgb 14.1, Hct 41.9 L, MCV 99.5 H, MCH 33.4 H, MCHC 33.6, RDW 14.8, Plt Count 233 D, MPV 6.9 L, Neut % (Auto) 80.7 H, Lymph % (Auto) 12.3, [place] % (Auto) 6.7, Eos % (Auto) 0.1, Baso % (Auto) 0.1, Neut # (Auto) 12.1 H, Lymph # (Auto) 1.9, [place] # (Auto) 1.0, Eos # (Auto) 0.0, Baso # (Auto) 0.0, Sodium 132 L, Potassium 4.6, Chloride 96 L, Carbon Dioxide 32 H, Anion Gap 8.6, BUN 21 H, Creatinine 0.80, Estimated Creat Clear 86, Estimated GFR 96, Est GFR ( Amer) 116, Glucose 94, Calcium 8.5, Total Bilirubin 0.4, AST 65 H D, ALT 56, Alkaline Phosphatase 71, Total Protein 7.6, Albumin 3.3 L, Globulin 4.3 H, Albumin/Globulin Ratio 0.8 L I & O for Labs for Last 24 Hours: Intake & Output
--- NOTE | 2023-01-26 14:37 | PC.NURSE ---
PT IS SITTING UP IN THE CHAIR. PT HAD TO BE SWITCHED FROM NC BACK TO 40% VENTI THIS MORNING DUE TO O2 SATURATION DROPPING IN THE 70'S. PT HAS BEEN VERY AGITATED ON AND OFF T/O THE SHIFT AND STATES HE JUST WANTS TO GO HOME. O2 SATURATION MAINTAINED 90-95% ON 40% VENTI AND HE WAS ABLE TO BE SWITCHED OVER TO 6L NC TO EAT LUNCH. O2 SATURATION WAS MAINTAINING HOWEVER PT REQUESTED TO BE SWITCHED BACK TO THE VENTI MASK B/C HE STATED IT WAS MORE COMFORTABLE AND HE WAS ABLE TO GET MORE AIR. PT CONTINUES TO DESAT IN THE 70'S WITH MINIMAL EXERTION. WILL CONTINUE TO MONITOR.
--- NOTE | 2023-01-26 19:13 | XR_ITS ---
PROCEDURE INFORMATION: Exam: XR Chest Exam date and time: 01/26/2023 7:39 PM Age: 72 years old Clinical indication: Dyspnea TECHNIQUE: Imaging protocol: Radiologic exam of the chest. Views: 1 view. COMPARISON: CR XR CHEST PORTABLE 01/24/2023 9:20 AM FINDINGS: Lungs: Diffuse interstitial infiltrates appear similar to previous. Lung volumes are relatively low. Pleural spaces: Unremarkable. No pleural effusion. No pneumothorax. Heart/Mediastinum: Unremarkable. No cardiomegaly. Bones/joints: Moderate degenerative changes throughout the spine. IMPRESSION: Stable diffuse bilateral pulmonary infiltrates
[2023-01-27] VITALS (12 sets, daily range): BP systolic 89–121; BP diastolic 51–65; PULSE 67–710; RESP 18–24; TEMP 36.5–36.7; O2SAT 83–91; BMI 28.5
--- NOTE | 2023-01-27 07:49 | EXP.ACUTE.PN ---
Subjective *Date: 01/27/23 *Time: 12:49 Interval history: Still on 6 L nasal cannula this morning. Extensive discussion with viewing of patient's chest imaging on the computer in the room to explain why his recovery is so slow. Patient and have better understanding today. Not requesting to go home today. Dry nonproductive cough. No nausea or vomiting. Tolerating p.o. intake. Afebrile. Medical Exam Vital signs and Labs for Last 24 Hours: Vital Signs Temp Pulse Pulse Resp BP Pulse Ox O2 Del Method 01/27/23 06:20 67 01/27/23 06:20 74 01/27/23 06:20 91 L Nasal Cannula 01/27/23 04:00 72 01/27/23 04:00 97.9 F 72 18 121/65 91 L Nasal Cannula 01/27/23 00:00 80 01/26/23 20:00 75 01/27/23 00:00 98.0 F 69 18 101/51 L 91 L Nasal Cannula 01/27/23 06:27 Nasal Cannula 01/27/23 05:00 Nasal Cannula 01/27/23 03:00 Nasal Cannula 01/27/23 01:00 Nasal Cannula 01/26/23 23:00 Nasal Cannula 01/26/23 23:21 78 01/26/23 23:21 77 01/26/23 19:52 97.7 F 83 22 107/57 L 92 L 01/26/23 18:24 Nasal Cannula 01/26/23 17:57 79 01/26/23 17:57 79 01/26/23 17:57 86 L Nasal Cannula 01/26/23 16:00 70 01/26/23 17:00 Nasal Cannula 01/26/23 15:00 Venturi Mask 01/26/23 15:38 98.0 F 75 22 115/64 92 L Venturi Mask 01/26/23 13:00 Venturi Mask 01/26/23 12:00 90 01/26/23 08:00 Venturi Mask 01/26/23 11:32 75 01/26/23 11:32 79 01/26/23 11:32 90 L Venturi Mask 01/26/23 11:20 98.2 F 73 22 116/56 L 91 L Venturi Mask 01/26/23 10:51 Venturi Mask 01/26/23 08:00 90 01/26/23 08:43 Venturi Mask 01/26/23 21:00 Nasal Cannula 01/26/23 19:30 Nasal Cannula O2 Flow Rate FiO2 01/27/23 06:20 01/27/23 06:20 01/27/23 06:20 5 01/27/23 04:00 01/27/23 04:00 01/27/23 00:00 01/26/23 20:00 01/27/23 00:00 01/27/23 06:27 6 01/27/23 05:00 6 01/27/23 03:00 6 01/27/23 01:00 6 01/26/23 23:00 6 01/26/23 23:21 01/26/23 23:21 01/26/23 19:52 01/26/23 18:24 6 01/26/23 17:57 01/26/23 17:57 01/26/23 17:57 6 01/26/23 16:00 01/26/23 17:00 6 01/26/23 15:00 12 01/26/23 15:38 01/26/23 13:00 01/26/23 12:00 01/26/23 08:00 12 40 01/26/23 11:32 01/26/23 11:32 01/26/23 11:32 12 40 01/26/23 11:20 01/26/23 10:51 01/26/23 08:00 01/26/23 08:43 01/26/23 21:00 6 01/26/23 19:30 6 Intake and Output 01/26/23 01/26/23 01/27/23 15:59 23:59 07:59 Intake Total 240 / 1350 240 / 1350 300 / 300 Output Total 700 / 900 775 / 775 Balance 240 / 450 -460 / 450 -475 / -475 Intake: Intake, Oral Amount 240 / 1350 240 / 1350 300 / 300 Output: Output, Urine Amount 700 / 900 775 / 775 Other: Number of Voids 1 Number of Unmeasured Voids 0 Weight 92.59 kg Patient Weight 01/27/23 23:59 Weight 92.59 kg Laboratory Results - last 24 hr 01/26/23 06:51: Sodium 132 L, Potassium 4.6, Chloride 96 L, Carbon Dioxide 32 H, Anion Gap 8.6, BUN 21 H, Creatinine 0.80, Estimated Creat Clear 86, Estimated GFR 96, Est GFR ( Amer) 116, Glucose 94, Calcium 8.5, Total Bilirubin 0.4, AST 65 H D, ALT 56, Alkaline Phosphatase 71, Total Protein 7.6, Albumin 3.3 L, Globulin 4.3 H, Albumin/Globulin Ratio 0.8 L I & O for Labs for Last 24 Hours: Intake & Output 01/24/23 01/25/23 01/26/23 01/27/23 23:59 23:59 23:59 23:59 Intake Total 1620 / 1670 1490 / 1790 1050 / 1350 300 / 300 Output Total 1175 / 1575 1250 / 1450 900 / 900 775 / 775 Balance 445 / 95 240 / 340 150 / 450 -475 / -475 Weight 88.63 kg 88.61 kg 88.451 kg 92.59 kg Constitutional: Present no acute distress, average body habitus and chronically ill appearing Head: Present atraumatic and normocephalic ENT: Present normal exam Neck: Present normal inspection
[2023-01-27 08:37] LABS: Basophils % 0.2 % (0.1-2.0); Eosinophils # 0.1 K/mm3 (0.0-0.4); Eosinophils % 0.9 % (0.1-12.0); Hematocrit 43.1 % (42.0-52.0); Hemoglobin 14.6 g/dL (14.1-18.0); Lymphocytes # 1.5 K/mm3 (0.7-4.5); Lymphocytes % 11.6 % (10-50); Mean Corpuscular HGB Conc 33.9 g/dL (31.8-35.4); Mean Corpuscular Volume 100.3 fl (80-94); Mean Platelet Volume 7.9 fl (7.4-10.4); Monocytes # 0.7 K/mm3 (0.1-1.0); Monocytes % 5.6 % (1.7-9.3); Neutrophils # 10.7 K/mm3 (1.8-7.8); Neutrophils % 81.8 % (37.0-80.0); Platelet Count 246 K/mm3 (142-424); Red Blood Count 4.29 M/mm3 (4.60-6.20)
[2023-01-27 08:39] LABS: Alanine Aminotransferase 57 U/L (12-78); Albumin Level 3.2 g/dl (3.5-5.0); Albumin/Globulin Ratio 0.8 (1.1-1.8); Alkaline Phosphatase 68 U/L (38-126); Anion Gap 9.9 mEq/L (5-15); Aspartate Amino Transferase 72 U/L (17-59); Bilirubin,Total 0.4 mg/dl (0.2-1.3); Blood Urea Nitrogen 18 mg/dl (9-20); Calcium 8.1 mg/dl (8.4-10.2); Carbon Dioxide 30 mmol/L (22.0-30.0); Chloride 97 mmol/L (98-107); Creatinine Clearance Estimated 90 mL/min (50-200); Estimated Glomerular Filt Rate 96 ml/min (>60); GFR (African American) 116 ML/MIN (>60); Glucose 96 mg/dl (74-100); Potassium 3.9 mmoL/L (3.5-5.1); Sodium 133 mmol/L (136-145); Total Protein,Serum 7.2 g/dl (6.3-8.2)
[2023-01-27 08:44] LABS: C-Reactive Protein 12.4 mg/L (0-4)
[2023-01-27 08:49] LABS: Magnesium 2.2 mg/dl (1.6-2.3)
--- NOTE | 2023-01-27 15:47 | PC.NURSE ---
PT IS RESTING IN BED. ALERT AND ORIENTED X4. EATING AND DRINKING WELL. PT HAS DIURESED OVER 2 L THIS SHIFT. O2 SATURATION HAS MAINTAINED 90-93% ON 6 L NC. LUNG SOUNDS DIMINISHED WITH BILATERAL CRACKLES. PT TOLERATED SITTING UP IN THE CHAIR FOR SEVERAL HOURS THIS SHIFT. PT CONTINUES TO DESAT TO THE 80'S WITH MINIMAL EXERTION. WILL CONTINUE TO MONITOR.
[2023-01-28] VITALS (7 sets, daily range): BP systolic 100–128; BP diastolic 52–63; PULSE 60–90; RESP 16–22; TEMP 36.4–37; O2SAT 81–91; BMI 28.5
[2023-01-28 07:01] LABS: Basophils % 0.3 % (0.1-2.0); Eosinophils # 0.2 K/mm3 (0.0-0.4); Eosinophils % 1.2 % (0.1-12.0); Hematocrit 48.5 % (42.0-52.0); Lymphocytes # 1.3 K/mm3 (0.7-4.5); Lymphocytes % 9.7 % (10-50); Mean Corpuscular Hemoglobin 33.8 pg (27.0-31.2); Mean Corpuscular Volume 102.5 fl (80-94); Mean Platelet Volume 8.1 fl (7.4-10.4); Monocytes # 0.9 K/mm3 (0.1-1.0); Monocytes % 6.5 % (1.7-9.3); Neutrophils # 10.8 K/mm3 (1.8-7.8); Neutrophils % 82.2 % (37.0-80.0); Platelet Count 298 K/mm3 (142-424); Red Blood Count 4.73 M/mm3 (4.60-6.20); Red Cell Distribution Width 14.8 % (11.5-17.5); White Blood Count 13.2 K/mm3 (4.8-10.8)
[2023-01-28 07:12] LABS: Alanine Aminotransferase 79 U/L (12-78); Albumin Level 3.5 g/dl (3.5-5.0); Albumin/Globulin Ratio 0.8 (1.1-1.8); Alkaline Phosphatase 77 U/L (38-126); Anion Gap 7.2 mEq/L (5-15); Aspartate Amino Transferase 93 U/L (17-59); Bilirubin,Total 0.5 mg/dl (0.2-1.3); Blood Urea Nitrogen 24 mg/dl (9-20); Calcium 8.3 mg/dl (8.4-10.2); Carbon Dioxide 34 mmol/L (22.0-30.0); Chloride 97 mmol/L (98-107); Creatinine Clearance Estimated 90 mL/min (50-200); Estimated Glomerular Filt Rate 96 ml/min (>60); GFR (African American) 116 ML/MIN (>60); Globulin 4.3 g/dL (1.3-3.2); Glucose 92 mg/dl (74-100); Potassium 4.2 mmoL/L (3.5-5.1); Sodium 134 mmol/L (136-145); Total Protein,Serum 7.8 g/dl (6.3-8.2)
[2023-01-28 07:18] LABS: C-Reactive Protein 14.5 mg/L (0-4)
[2023-01-28 07:19] LABS: Magnesium 2.2 mg/dl (1.6-2.3)
[2023-01-28 09:26] LABS: Antinuclear Antibodies (ANA) Negative
--- NOTE | 2023-01-28 09:55 | EXP.PULM.PN ---
Subjective *Date: 01/28/23 *Time: 11:25 Interval history: No acute respiratory vents over the weekend. Patient denies any significant improvement in his respiratory status Pulmonology Exam Inpatient Vital signs and Labs for Last 24 Hours: Temp Pulse Resp BP Pulse Ox O2 Del Method O2 Flow Rate 98.2 F 85 22 128/63 91 L Nasal Cannula 6 01/28/23 08:00 01/28/23 08:00 01/28/23 08:00 01/28/23 08:00 01/28/23 08:00 01/28/23 09:00 01/28/23 09:00 FiO2 40 01/26/23 11:32 Laboratory Results - last 24 hr 01/22/23 15:45: JOSH Screen Negative 01/28/23 06:35: WBC 13.2 H, RBC 4.73, Hgb 16.0, Hct 48.5, MCV 102.5 H, MCH 33.8 H, MCHC 33.0, RDW 14.8, Plt Count 298, MPV 8.1, Neut % (Auto) 82.2 H, Lymph % (Auto) 9.7 L, Greene % (Auto) 6.5, Eos % (Auto) 1.2, Baso % (Auto) 0.3, Neut # (Auto) 10.8 H, Lymph # (Auto) 1.3, Greene # (Auto) 0.9, Eos # (Auto) 0.2, Baso # (Auto) 0.0, Sodium 134 L, Potassium 4.2, Chloride 97 L, Carbon Dioxide 34 H, Anion Gap 7.2, BUN 24 H D, Creatinine 0.80, Estimated Creat Clear 90, Estimated GFR 96, Est GFR ( Amer) 116, Glucose 92, Calcium 8.3 L, Magnesium 2.2, Total Bilirubin 0.5, AST 93 H D, ALT 79 H D, Alkaline Phosphatase 77, C-Reactive Protein 14.5 H, Total Protein 7.8, Albumin 3.5, Globulin 4.3 H, Albumin/Globulin Ratio 0.8 L I & O for Labs for Last 24 Hours: Intake & Output 01/25/23 01/26/23 01/27/23 01/28/23 23:59 23:59 23:59 23:59 Intake Total 1490 / 1790 1050 / 1350 1410 / 1710 420 / 420 Output Total 1250 / 1450 900 / 900 2975 / 2975 500 / 500 Balance 240 / 340 150 / 450 -1565 / -1265 -80 / -80 Weight 195 lb 5.626 oz 195 lb 204 lb 2 oz 203 lb 9 oz Microbiology Reports for the Last 24 Hours: Microbiology 01/21/23 15:09 Blood Blood Culture - Final 01/21/23 13:40 Blood Blood Culture - Final 01/21/23 11:53 Sputum - Expectorated Sputum Gram Stain - Final Constitutional: Present moderate distress Head: Present normocephalic and atraumatic ENT: Present normal exam, normal oropharynx and mucous membranes moist Neck: Present normal inspection and full ROM Respiratory: Present rales, respiratory distress and able to speak in complete sentences; Absent wheezes or crackles Cardiac: Present S1/S2, Tachycardia and radial pulses present GI: Present soft and distention; Absent tenderness or guarding Skin: Present intact; Absent cyanosis or jaundice Neuro: Present alert, awake and oriented x 3 Extremities: Present normal inspection and clubbing; Absent cyanosis Psychiatric: Present normal affect and cooperative Assessment and Plan *Assessment and plan (1) ILD (interstitial lung disease): Status: Acute Category: Medical Code(s): J84.9 - Interstitial pulmonary disease, unspecified (2) Acute respiratory failure with hypoxia: Status: Acute Category: Medical Code(s): J96.01 - Acute respiratory failure with hypoxia (3) Fibrosis of lung: Status: Acute Category: Medical Code(s): J84.10 - Pulmonary fibrosis, unspecified (4) History of 2019 novel coronavirus disease (COVID-19): Status: Acute Category: Medical Code(s): Z86.16 - Personal history of COVID-19 (5) Pulmonary hypertension: Status: Acute Category: Medical Code(s): I27.20 - Pulmonary hypertension, unspecified Plan Mr. Cruz is a 72-year-old male presented to the ER with worsening respiratory distress the last 2 weeks but has been progressively worsening presented to ER for further evaluation and management. CTA upon admission emphysematous changes with bilateral diffuse groundglass opacities and interstitial thickening. Predominant upper lobe homeycombing changes noted. There noted groundglass opacities and interstitial changes significantly worsened from his most recent CT scan from November 2022. Patient had a CTA performed in 2019 that only showed upper lobe groundglass opacities with NO significant fibrotic changes. CT scan is n
--- NOTE | 2023-01-28 11:21 | EXP.DC.SUM ---
General Admission date:: 01/21/23 Discharge date: 01/28/23 HPI HPI HPI: This is a 72-year-old male with apparent no chronic past medical history who presents emergency department for evaluation of shortness of breath. who is the primary source of information stated pt has been seeing pcp for a potential new onset COPD and has been referred to pulmonology. However for the last x2 weeks pt has been short of breath with exertion that has been increasing. Patien was using inhaler at home with no relief. Patient has had subacute shortness of breath, weight loss, decreased appetite, vague stomach pain. Admitted for further work up and treatment. Hospital Course Hospital Course Hospital Course: 72-year-old male with apparent no chronic past medical history who presents emergency department for evaluation of shortness of breath. who is the primary source of information stated pt has been seeing pcp for a potential new onset COPD. upon arrival patient evaluation showed significant hypxemia, sat in the 70's. hemodynamically stable but tachypnic. Status post left heart cath 01/22. Cardiology and pulmonology assisting with care. Continues to require inpatient management. Oxygen requirement has gradually improved during admission the patient has plateaued at 6 L nasal cannula with his pulmonary disease/interstitial lung disease. Stable to discharge home with supplemental oxygen and continuing steroids. We will have close follow-up with pulmonology and cardiology. Problems addressed during hospitalization as follows: -Acute respiratory failure with Hypoxemia -COPD -ILD Patient presented with respiratory distress concerning initially for pneumonia versus CHF exacerbation versus volume overload. Initially diuresed with no significant response. Because patient had an elevated troponin, was taken for evaluation by cardiology. Echo showed reduced ejection fraction. Cath as below. Findings most concerning on serial imaging however for interstitial lung disease. Patient was started on steroids, JOSH was obtained and still pending at discharge. Initiated on doxycycline 100 mg twice daily. Inflammatory markers showed improvement in CRP from 124 on admission to 12.4-day before discharge. Oxygen weaned but patient plateaued at 5 to 6 L. Will discharge home to continue oxygen therapy and steroids. Will need close follow-up with pulmonology as an outpatient. Strongly encouraged not to smoke anymore. Breathing treatments and inhalers as prescribed. NSTEMI CHF CAD -Patient found to have elevated troponin, concern for demand ischemia. Echo obtained showing reduced ejection fraction. Cardiology consulted, Left heart cath 01/22 with placement of 9 stents. Multivessel disease. Patient not in pulmonary edema based on wedge pressures. Continue with goal-directed therapy as follows: - Aspirin 81mg daily, Plavix 75mg daily - Metoprolol 12.5 mg daily - lipitor 80mg HS - Hold on further diuresis due to euvolemia during RHC Spent 40 minutes in discharge counseling, discussion with subspecialists, documentation, chart review, and direct care with patient. Exam Data for Last 24 hours Vital signs and Labs for Last 24 Hours: Temp Pulse Resp BP Pulse Ox O2 Del Method O2 Flow Rate 98.2 F 85 22 128/63 91 L Nasal Cannula 6 01/28/23 08:00 01/28/23 08:00 01/28/23 08:00 01/28/23 08:00 01/28/23 08:00 01/28/23 10:56 01/28/23 10:56 FiO2 40 01/26/23 11:32 Laboratory Results - last 24 hr 01/22/23 15:45: JOSH Screen Negative 01/28/23 06:35: WBC 13.2 H, RBC 4.73, Hgb 16.0, Hct 48.5, MCV 102.5 H, MCH 33.8 H, MCHC 33.0, RDW 14.8, Plt Count 298, MPV 8.1, Neut % (Auto) 82.2 H, Lymph % (Auto) 9.7 L, Taylor % (Auto) 6.5, Eos % (Auto) 1.2, Baso % (Auto) 0.3, Neut # (Auto) 10.8 H, Lymph # (Auto) 1.3, Taylor # (Auto) 0.9, Eos # (Auto) 0.2, Baso # (Auto) 0.0, Sodium 134 L, Potassium 4.2, Chloride 97 L, Carbon Dioxide 34 H, Anion Gap 7.2, BUN 24 H D, Creatinine 0.8
--- NOTE | 2023-01-28 12:46 | SW/DCPLANNER ---
Patient will need home O2 and neb machine at time of discharge. Patient is agreeable to [facility]: patient information/order has been faxed. Felecia blake/ [facility] stated that DME will be delivered today. The plan for this patient is to discharge home today.
--- NOTE | 2023-01-29 13:33 | CARE MANAGER ---
Contacted patient related to hospital discharge. Patient states he is getting better. He is aware of follow up appointments and did pickle processor his medication. Denies questions or concerns at this time. PAULINA Guajardo
== END 2023-01-28 14:12 | disposition home or self-care (01) | DRG 321 ==
LOC: ER 16:36 → 2ND 17:39
PROVIDERS: Internal Medicine; Internal Medicine Pulmonary Disease; Admitting Provider Internal Medicine Adolescent Medicine; Emergency Provider Emergency Medicine; PCP Family Medicine; Visit Provider Internal Medicine Adolescent Medicine
PROC: 027337Z Dilation of Coronary Artery, Four or More Arteries with Four or More Drug-eluting Intraluminal Devices, Percutaneous Approach (ICD-10-PCS; principal; 2023-01-22 14:30)
DX: I21.4 Non-ST elevation (NSTEMI) myocardial infarction (principal); I50.33 Acute on chronic diastolic (congestive) heart failure; J96.01 Acute respiratory failure with hypoxia; J84.9 Interstitial pulmonary disease, unspecified; I25.10 Atherosclerotic heart disease of native coronary artery without angina pectoris; Z86.16 Personal history of COVID-19; Z87.891 Personal history of nicotine dependence; I25.2 Old myocardial infarction; I27.20 Pulmonary hypertension, unspecified; J44.9 Chronic obstructive pulmonary disease, unspecified; J84.112 Idiopathic pulmonary fibrosis; F10.21 Alcohol dependence, in remission
CPT/HCPCS: 36415; 37236; 71045; 71275; 74177; 80053; 80061; 82803; 82810; 83605; 83615; 83690; 83735; 83880; 84145; 84484; 85007; 85025; 85347; 86038; 86140; 87040; 87070; 87205; 87632; 87635; 87636; 92928; 92929; 92978; 92979; 93005; 93306; 93460; 94640; 94660; 94760; 94761; 99152; 99153; 99291; C1725; C1769; C1876; C1894; C9600; C9601; J0696; J1644; Q9967

== ENCOUNTER → 2023-02-05 08:10 | Outpatient (CLI) | payer MEDICARE, SELFPAY ==
[2023-02-05 09:10] LABS: Basophils % 0.1 % (0.1-2.0); Eosinophils % 0.2 % (0.1-12.0); Hematocrit 48.5 % (42.0-52.0); Hemoglobin 16.2 g/dL (14.1-18.0); Lymphocytes # 0.7 K/mm3 (0.7-4.5); Lymphocytes % 2.9 % (10-50); Mean Corpuscular HGB Conc 33.4 g/dL (31.8-35.4); Mean Corpuscular Volume 98.9 fl (80-94); Mean Platelet Volume 7.8 fl (7.4-10.4); Monocytes # 0.7 K/mm3 (0.1-1.0); Monocytes % 2.7 % (1.7-9.3); Neutrophils # 23.2 K/mm3 (1.8-7.8); Neutrophils % 94.2 % (37.0-80.0); Platelet Count 252 K/mm3 (142-424); Red Cell Distribution Width 14.9 % (11.5-17.5); White Blood Count 24.6 K/mm3 (4.8-10.8)
[2023-02-05 09:35] LABS: MANUAL DIFFERENTIAL MANUAL DIFFERENTIAL (MANUAL DIFF)
[2023-02-05 09:57] LABS: Anion Gap 11.1 mEq/L (5-15); Blood Urea Nitrogen 24 mg/dl (9-20); Calcium 8.4 mg/dl (8.4-10.2); Carbon Dioxide 28 mmol/L (22.0-30.0); Chloride 97 mmol/L (98-107); Estimated Glomerular Filt Rate 83 ml/min (>60); GFR (African American) 101 ML/MIN (>60); Glucose 110 mg/dl (74-100); Potassium 4.1 mmoL/L (3.5-5.1); Sodium 132 mmol/L (136-145)
[2023-02-05 10:49] LABS: Lymphocytes % 2 % (10-50); Monocytes % 1 % (2-9); Neutrophils % 97 % (42-76); Platelet Estimate Normal; RBC Morphology Normal; Total Cells Counted 100
== END ==
PROVIDERS: PCP Family Medicine; Visit Provider Internal Medicine
DX: I21.4 Non-ST elevation (NSTEMI) myocardial infarction (principal); I24.9 Acute ischemic heart disease, unspecified
CPT/HCPCS: 36415; 80048; 85007; 85025

== ENCOUNTER → 2023-02-06 08:37 | Outpatient (CLI) | payer MEDICARE, SELFPAY ==
--- NOTE | 2023-02-06 08:45 | XR_ITS ---
FINAL REPORT CLINICAL HISTORY: COPD - cough COMPARISON: 01/26/2023 FINDINGS: TWO-VIEW CHEST The heart size is normal. The mediastinum is normal. There are interstitial opacities consistent with scarring/fibrosis. There are severe degenerative changes of the thoracic spine. There is no pneumothorax. IMPRESSION: Interstitial opacities consistent with scarring/fibrosis. Reviewed, Interpreted and Dictated by Mike Quinonez III, MD Transcribed by Lita Ying Authenticated and [facility]
== END ==
PROVIDERS: PCP Family Medicine; Visit Provider Family Medicine
DX: J44.9 Chronic obstructive pulmonary disease, unspecified (principal); Z87.891 Personal history of nicotine dependence
CPT/HCPCS: 71046

== ENCOUNTER → 2023-02-22 07:33 | Outpatient (CLI) | payer MEDICARE, SELFPAY ==
[2023-02-22 15:06] VITALS: PULSE 70; PULSE 71
== END ==
PROVIDERS: PCP Family Medicine; Visit Provider Internal Medicine Pulmonary Disease
DX: J84.10 Pulmonary fibrosis, unspecified (principal)
CPT/HCPCS: 94060; 94618; 94640; 94726; 94729

== ENCOUNTER 2023-02-22 10:11 | Outpatient (RCR) | payer MEDICARE, SELFPAY | END 2023-04-16 10:00 | disposition home or self-care (01) | LOC: PT 10:11 | PROVIDERS: Visit Provider Internal Medicine | DX: I25.10 Atherosclerotic heart disease of native coronary artery without angina pectoris (principal); Z95.5 Presence of coronary angioplasty implant and graft ==

== ENCOUNTER 2023-04-17 15:48 | Outpatient (CLI) | payer MEDICARE, SELFPAY ==
[2023-04-17 16:43] LABS: Creatine Kinase 21 U/L (55-170); Lactate Dehydrogenase 342 U/L (313-618)
[2023-04-17 18:37] LABS: Erythrocyte Sedimentation Rate 118 mm/hr (0-20)
[2023-04-18 08:22] LABS: RA Latex Turbid. 60.9 IU/mL (<14.0)
[2023-04-18 11:13] LABS: Antiscleroderma-70 Antibodies 0.2 AI (0.0-0.9); RNP Antibodies 0.3 AI (0.0-0.9); Sjogren's Anti-SS-A <0.2 AI (0.0-0.9); Sjogren's Anti-SS-B <0.2 AI (0.0-0.9); Smith/RNP Antibodies <0.2 AI (0.0-0.9)
[2023-04-18 14:33] LABS: Aldolase 11.3 U/L (3.3-10.3)
[2023-04-18 15:25] LABS: Cytoplasmic (C-ANCA) <1:20 titer (Neg:<1:20); Perinuclear (P-ANCA) <1:20 titer (Neg:<1:20)
[2023-04-22 10:11] LABS: Antinuclear Antibodies, IFA Negative (.)
[2023-04-26 10:31] LABS: Aspergillus fumigatus IgG NEGATIVE; Pigeon Serum Abs NEGATIVE
== END 2023-04-17 23:59 ==
LOC: LAB 15:50
PROVIDERS: PCP Family Medicine; Visit Provider Internal Medicine Pulmonary Disease
DX: R06.09 Other forms of dyspnea (principal); J84.9 Interstitial pulmonary disease, unspecified; J84.10 Pulmonary fibrosis, unspecified; J90 Pleural effusion, not elsewhere classified
CPT/HCPCS: 36415; 82085; 82550; 83615; 84550; 85651; 86038; 86140; 86235; 86256; 86331; 86431; 86602; 86606; 86609

== ENCOUNTER 2023-05-08 10:01 | Outpatient (CLI) | payer MEDICARE, SELFPAY ==
--- NOTE | 2023-05-08 10:02 | CT_ITS ---
FINAL REPORT TECHNIQUE: Thin section axial images were obtained from the lung apices through the upper abdomen without contrast. This study was performed with techniques to keep radiation doses as low as reasonably achievable (ALARA). Individualized dose reduction techniques using automated exposure control or adjustment of mA and/or kV according to the patient's size were employed. CLINICAL HISTORY: High resolution chest x3 supine- suspend inspiration supine- suspend expiration prone- suspend inspiration SOA COMPARISON: CTA January 2023 FINDINGS: There are a few scattered mediastinal lymph nodes identified, stable since the prior exam of January 2023.. There is a small left pleural effusion. . Inspiratory and expiratory images were obtained in the supine position, which reveal an extensive honeycombing pattern throughout the periphery of both lungs, particularly in the apices and in the lung bases. The previously noted ground glass opacities seen on the prior CT have resolved, which likely were related to superimposed edema or pneumonitis. Prone imaging reveals that the honeycomb pattern persists in the lung bases. There is a moderate bulla in the right base which measures 4 cm in diameter. Limited, unenhanced evaluation of the upper abdomen is without acute abnormality. There is no acute osseous abnormality. IMPRESSION: There are changes of chronic fibrosis in the lung bases in the apices, with a honeycombing pattern as described. Been resolution of the previous ground glass opacities since the prior CT, likely related to resolution of superimposed edema or pneumonitis. Reviewed, Interpreted and Dictated by Douglas Gray MD Transcribed by Sirisha Bedolla Authenticated and [facility]
[2023-05-08 11:58] LABS: Chloride 97 mmol/L (98-107)
[2023-05-08 11:59] LABS: Potassium 4.4 mmoL/L (3.5-5.1); Sodium 131 mmol/L (136-145)
[2023-05-08 12:01] LABS: Blood Urea Nitrogen 17 mg/dl (9-20); Estimated Glomerular Filt Rate 133 ml/min (>60); GFR (African American) 161 ML/MIN (>60)
[2023-05-08 12:02] LABS: Anion Gap 4.4 mEq/L (5-15); Calcium 8.3 mg/dl (8.4-10.2); Carbon Dioxide 34 mmol/L (22.0-30.0); Glucose 123 mg/dl (74-100)
[2023-05-08 12:21] LABS: Chloride 97 mmol/L (98-107); Potassium 4.2 mmoL/L (3.5-5.1); Sodium 131 mmol/L (136-145)
[2023-05-08 12:23] LABS: Alanine Aminotransferase 23 U/L (12-78); Aspartate Amino Transferase 24 U/L (17-59); Blood Urea Nitrogen 16 mg/dl (9-20); Estimated Glomerular Filt Rate 133 ml/min (>60); GFR (African American) 161 ML/MIN (>60)
[2023-05-08 12:24] LABS: Albumin Level 3.1 g/dl (3.5-5.0); Albumin/Globulin Ratio 0.8 (1.1-1.8); Alkaline Phosphatase 78 U/L (38-126); Anion Gap 4.2 mEq/L (5-15); Bilirubin,Total 0.7 mg/dl (0.2-1.3); Calcium 8.2 mg/dl (8.4-10.2); Carbon Dioxide 34 mmol/L (22.0-30.0); Glucose 125 mg/dl (74-100); Total Protein,Serum 7.1 g/dl (6.3-8.2)
[2023-05-08 12:29] LABS: C-Reactive Protein 43.5 mg/L (0-4)
== END 2023-05-08 23:59 ==
LOC: RAD 10:02
PROVIDERS: Internal Medicine; PCP Family Medicine; Visit Provider Internal Medicine Pulmonary Disease
DX: J84.9 Interstitial pulmonary disease, unspecified (principal); R06.09 Other forms of dyspnea; Z87.891 Personal history of nicotine dependence
CPT/HCPCS: 36415; 71250; 80048; 80053; 86140

== ENCOUNTER 2023-06-06 11:29 | Outpatient (CLI) | payer MEDICARE, SELFPAY ==
[2023-06-06 11:51] LABS: Basophils % 0.2 % (0.1-2.0); Eosinophils # 0.1 K/mm3 (0.0-0.4); Eosinophils % 0.3 % (0.1-12.0); Hematocrit 39.6 % (42.0-52.0); Hemoglobin 12.5 g/dL (14.1-18.0); Lymphocytes # 1.1 K/mm3 (0.7-4.5); Lymphocytes % 6.1 % (10-50); Mean Corpuscular HGB Conc 31.6 g/dL (31.8-35.4); Mean Corpuscular Hemoglobin 32.6 pg (27.0-31.2); Mean Corpuscular Volume 103.1 fl (80-94); Mean Platelet Volume 8.1 fl (7.4-10.4); Monocytes # 0.6 K/mm3 (0.1-1.0); Monocytes % 3.2 % (1.7-9.3); Neutrophils # 17.1 K/mm3 (1.8-7.8); Neutrophils % 90.2 % (37.0-80.0); Platelet Count 301 K/mm3 (142-424); Red Blood Count 3.85 M/mm3 (4.60-6.20); Red Cell Distribution Width 17.7 % (11.5-17.5); White Blood Count 18.9 K/mm3 (4.8-10.8)
[2023-06-06 11:56] LABS: MANUAL DIFFERENTIAL MANUAL DIFFERENTIAL (MANUAL DIFF)
[2023-06-06 13:12] LABS: Chloride 100 mmol/L (98-107); Potassium 3.9 mmoL/L (3.5-5.1); Sodium 131 mmol/L (136-145)
[2023-06-06 13:15] LABS: Alanine Aminotransferase 26 U/L (12-78); Albumin Level 3.3 g/dl (3.5-5.0); Alkaline Phosphatase 76 U/L (38-126); Anion Gap 3.9 mEq/L (5-15); Aspartate Amino Transferase 29 U/L (17-59); Bilirubin,Total 0.4 mg/dl (0.2-1.3); Blood Urea Nitrogen 18 mg/dl (9-20); Calcium 8.8 mg/dl (8.4-10.2); Carbon Dioxide 31 mmol/L (22.0-30.0); Estimated Glomerular Filt Rate 111 ml/min (>60); GFR (African American) 135 ML/MIN (>60); Globulin 3.4 g/dL (1.3-3.2); Glucose 109 mg/dl (74-100); Total Protein,Serum 6.7 g/dl (6.3-8.2)
[2023-06-06 13:19] LABS: Eosinophils % 1 % (0-3); Lymphocytes % 6 % (10-50); Monocytes % 1 % (2-9); Neutrophils % 91 % (42-76); Total Cells Counted 100
[2023-06-06 13:22] LABS: Anisocytosis 1+; Burr Cells 1+; C-Reactive Protein 12.5 mg/L (0-4); Macrocytosis 1+; Platelet Estimate Normal; Poikilocytosis 1+
== END 2023-06-06 23:59 ==
PROVIDERS: PCP Family Medicine; Visit Provider Internal Medicine Pulmonary Disease
DX: J84.10 Pulmonary fibrosis, unspecified (principal); J45.909 Unspecified asthma, uncomplicated; R06.02 Shortness of breath; Z79.899 Other long term (current) drug therapy
CPT/HCPCS: 36415; 80053; 85007; 85025; 86140

== ENCOUNTER 2023-08-01 13:41 | Outpatient (CLI) | payer MEDICARE, SELFPAY ==
[2023-08-01 15:04] LABS: Chloride 95 mmol/L (98-107); Sodium 132 mmol/L (136-145)
[2023-08-01 15:05] LABS: Potassium 3.8 mmoL/L (3.5-5.1)
[2023-08-01 15:07] LABS: Alanine Aminotransferase 17 U/L (12-78); Albumin Level 3.7 g/dl (3.5-5.0); Albumin/Globulin Ratio 0.9 (1.1-1.8); Alkaline Phosphatase 76 U/L (38-126); Anion Gap 13.8 mEq/L (5-15); Aspartate Amino Transferase 28 U/L (17-59); Bilirubin,Total 0.8 mg/dl (0.2-1.3); Blood Urea Nitrogen 9 mg/dl (9-20); Carbon Dioxide 27 mmol/L (22.0-30.0); Estimated Glomerular Filt Rate 111 ml/min (>60); GFR (African American) 135 ML/MIN (>60); Globulin 4.1 g/dL (1.3-3.2); Total Protein,Serum 7.8 g/dl (6.3-8.2)
[2023-08-01 15:08] LABS: Calcium 9.3 mg/dl (8.4-10.2); Glucose 125 mg/dl (74-100)
[2023-08-01 15:13] LABS: C-Reactive Protein 71.7 mg/L (0-4)
== END 2023-08-01 23:59 | disposition home or self-care (01) ==
LOC: LAB 13:45
PROVIDERS: PCP Family Medicine; Visit Provider Internal Medicine Pulmonary Disease
DX: J84.9 Interstitial pulmonary disease, unspecified (principal); R06.09 Other forms of dyspnea; Z87.891 Personal history of nicotine dependence
CPT/HCPCS: 36415; 80053; 86140

== ENCOUNTER 2024-01-28 12:50 | Outpatient (CLI) | payer MEDICARE, SELFPAY ==
[2024-01-28 13:40] VITALS: PULSE 79; PULSE 82
[2024-01-28] MEDS: ALBUTEROL 0.083% 2.5 MG/3 ML NEB IH (13:40)
[2024-01-28 15:34] LABS: Basophils # 0.1 K/mm3 (0-0.2); Basophils % 0.6 % (0.1-2.0); Eosinophils # 0.3 K/mm3 (0.0-0.4); Eosinophils % 2.8 % (0.1-12.0); Hematocrit 43.2 % (42.0-52.0); Hemoglobin 14.5 g/dL (14.1-18.0); Lymphocytes # 1.7 K/mm3 (0.7-4.5); Lymphocytes % 18.2 % (10-50); Mean Corpuscular HGB Conc 33.5 g/dL (31.8-35.4); Mean Corpuscular Hemoglobin 32.9 pg (27.0-31.2); Mean Platelet Volume 7.3 fl (7.4-10.4); Monocytes # 0.5 K/mm3 (0.1-1.0); Monocytes % 5.2 % (1.7-9.3); Neutrophils % 73.2 % (37.0-80.0); Platelet Count 232 K/mm3 (142-424); Red Blood Count 4.41 M/mm3 (4.60-6.20); White Blood Count 9.5 K/mm3 (4.8-10.8)
[2024-01-28 15:46] LABS: Alanine Aminotransferase 19 U/L (12-78); Albumin Level 4.2 g/dl (3.5-5.0); Alkaline Phosphatase 88 U/L (38-126); Anion Gap 14.4 mEq/L (5-15); Aspartate Amino Transferase 33 U/L (17-59); Bilirubin,Total 0.7 mg/dl (0.2-1.3); Blood Urea Nitrogen 16 mg/dl (9-20); Calcium 8.8 mg/dl (8.4-10.2); Carbon Dioxide 27 mmol/L (22.0-30.0); Chloride 103 mmol/L (98-107); Estimated Glomerular Filt Rate 95 ml/min (>60); GFR (African American) 115 ML/MIN (>60); Globulin 4.1 g/dL (1.3-3.2); Glucose 90 mg/dl (74-100); Potassium 4.4 mmoL/L (3.5-5.1); Sodium 140 mmol/L (136-145); Total Protein,Serum 8.3 g/dl (6.3-8.2)
[2024-01-28 15:51] LABS: C-Reactive Protein 6.4 mg/L (0-4)
== END 2024-01-28 23:59 | disposition home or self-care (01) ==
PROVIDERS: PCP Family Medicine; Visit Provider Internal Medicine Pulmonary Disease
DX: R06.09 Other forms of dyspnea (principal); J84.112 Idiopathic pulmonary fibrosis; J45.909 Unspecified asthma, uncomplicated
CPT/HCPCS: 36415; 80053; 85025; 86140; 94060; 94618; 94640; 94726; 94729; J7613

== ENCOUNTER 2024-01-29 10:37 | Outpatient (CLI) | payer MEDICARE, SELFPAY ==
--- NOTE | 2024-01-29 10:41 | CT_ITS ---
FINAL REPORT CLINICAL HISTORY: hypoxia COMPARISON: 05/08/2023 FINDINGS: Thin section axial CT images of the chest were obtained with contrast. 3D reformatted images were also obtained. This study was performed with techniques to keep radiation doses as low as reasonably achievable (ALARA). Individualized dose reduction techniques using automated exposure control or adjustment of mA and/or kV according to the patient's size were employed. There is no evidence of pulmonary embolism. There is no evidence of thoracic aortic aneurysm or dissection. There is no evidence of mediastinal or hilar mass or adenopathy. There is moderate to severe interstitial fibrosis with widespread honeycombing. Superimposed bilateral groundglass opacities may represent edema or alveolitis. Limited images of the upper abdomen demonstrate gallstones. There are moderate degenerative changes of the thoracic spine. IMPRESSION: No evidence of pulmonary embolism. Moderate to severe interstitial fibrosis with widespread honeycombing. Bilateral groundglass opacities, may represent edema or alveolitis. Reviewed, Interpreted and Dictated by Mike Quinonez III, MD Transcribed by Lita Ying Authenticated and [facility]
[2024-01-29] MEDS: SODIUM CHLORIDE 0.9% 10ML SYR (RAD ONLY) 10 ML IV (11:21)
[2024-01-29] MEDS: IOPAMIDOL-370 (76%);100ML BOTTLE 70 ML IV (11:21)
[2024-01-29] MEDS: 0.9 % SODIUM CHLORIDE 50 ML VIAL IV (11:22)
== END 2024-01-29 23:59 | disposition home or self-care (01) ==
LOC: RAD 10:38
PROVIDERS: PCP Family Medicine; Visit Provider Internal Medicine Pulmonary Disease
DX: J96.21 Acute and chronic respiratory failure with hypoxia (principal)
CPT/HCPCS: 71275; Q9967

== ENCOUNTER 2024-04-30 11:26 | Outpatient (CLI) | payer MEDICARE, SELFPAY ==
[2024-04-30 12:22] LABS: Basophils % 0.4 % (0.1-2.0); Eosinophils # 0.3 K/mm3 (0.0-0.4); Eosinophils % 3.1 % (0.1-12.0); Hematocrit 41.9 % (42.0-52.0); Hemoglobin 13.8 g/dL (14.1-18.0); Lymphocytes # 1.5 K/mm3 (0.7-4.5); Lymphocytes % 14.7 % (10-50); Mean Corpuscular HGB Conc 32.9 g/dL (31.8-35.4); Mean Corpuscular Volume 97.2 fl (80-94); Mean Platelet Volume 8.9 fl (7.4-10.4); Monocytes # 0.7 K/mm3 (0.1-1.0); Monocytes % 6.5 % (1.7-9.3); Neutrophils # 7.5 K/mm3 (1.8-7.8); Neutrophils % 74.9 % (37.0-80.0); Platelet Count 216 K/mm3 (142-424); Red Blood Count 4.31 M/mm3 (4.60-6.20); Red Cell Distribution Width 13.6 % (11.5-17.5); White Blood Count 10.1 K/mm3 (4.8-10.8)
[2024-04-30 12:59] LABS: Chloride 104 mmol/L (98-107)
[2024-04-30 13:00] LABS: Albumin Level 4.3 g/dl (3.5-5.0); Potassium 4.5 mmoL/L (3.5-5.1); Sodium 139 mmol/L (136-145)
[2024-04-30 13:02] LABS: Alanine Aminotransferase 22 U/L (12-78); Albumin/Globulin Ratio 1.4 (1.1-1.8); Alkaline Phosphatase 76 U/L (38-126); Anion Gap 13.5 mEq/L (5-15); Aspartate Amino Transferase 34 U/L (17-59); Bilirubin,Total 0.5 mg/dl (0.2-1.3); Blood Urea Nitrogen 19 mg/dl (9-20); Carbon Dioxide 26 mmol/L (22.0-30.0); Estimated Glomerular Filt Rate 95 ml/min (>60); GFR (African American) 115 ML/MIN (>60); Globulin 3.1 g/dL (1.3-3.2); Total Protein,Serum 7.4 g/dl (6.3-8.2)
[2024-04-30 13:03] LABS: Calcium 8.9 mg/dl (8.4-10.2); Glucose 99 mg/dl (74-100)
[2024-04-30 13:13] LABS: C-Reactive Protein 3.5 mg/L (0-4)
== END 2024-04-30 23:59 | disposition home or self-care (01) ==
LOC: LAB 11:28
PROVIDERS: PCP Family Medicine; Visit Provider Internal Medicine Pulmonary Disease
DX: J84.9 Interstitial pulmonary disease, unspecified (principal); R06.09 Other forms of dyspnea; J45.909 Unspecified asthma, uncomplicated
CPT/HCPCS: 36415; 80053; 85025; 86140

== ENCOUNTER 2025-01-21 10:14 | Outpatient (CLI) | payer MEDICARE, SELFPAY ==
--- NOTE | 2025-01-21 10:21 | XR_ITS ---
FINAL REPORT CLINICAL HISTORY: CHRONIC MIDLINE LBP W/O SCIATICA pain FINDINGS: PELVIS 2 views were obtained. The patient is status post bilateral hip arthroplasties. There is no acute fracture or dislocation. Vascular calcifications are noted. There is severe degenerative disc disease in the lower lumbar spine. IMPRESSION: No acute bony abnormality. Reviewed, Interpreted and Dictated by Dipak Garcia MD Transcribed by Mirna Tong Authenticated and [facility]
--- NOTE | 2025-01-21 10:22 | XR_ITS ---
FINAL REPORT CLINICAL HISTORY: ILD, ABNORMAL LAB TEST RESULTS pain FINDINGS: RIGHT HAND Three views were obtained. There is no acute fracture or dislocation. Deformity of the proximal fifth metacarpal is consistent with an old fracture. Joint spaces are maintained. No acute soft tissue abnormality is seen. Vascular calcifications are noted. IMPRESSION: No acute bony abnormality. Reviewed, Interpreted and Dictated by Dipak Garcia MD Transcribed by Mirna Tong Authenticated and [facility]
--- NOTE | 2025-01-21 10:22 | XR_ITS ---
FINAL REPORT CLINICAL HISTORY: ILD, ABNORMAL LAB TEST RESULTS pain FINDINGS: LEFT HAND 2 views were obtained. There is no acute fracture or dislocation. 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 No acute soft tissue abnormality is seen. IMPRESSION: Degenerative changes with no acute bony abnormality. Reviewed, Interpreted and Dictated by Dipak Garcia MD Transcribed by Mirna Tong Authenticated and [facility]
--- NOTE | 2025-01-21 10:22 | XR_ITS ---
FINAL REPORT CLINICAL HISTORY: ILD, ABNORMAL LAB TEST RESULTS pain FINDINGS: LEFT WRIST 2 views were obtained. There is no acute fracture or dislocation. Joint spaces are maintained. No acute soft tissue abnormality is seen. Vascular calcifications are noted. IMPRESSION: No acute bony abnormality. Reviewed, Interpreted and Dictated by Dipak Garcia MD Transcribed by Mirna Tong Authenticated and [facility]
--- NOTE | 2025-01-21 10:22 | XR_ITS ---
FINAL REPORT CLINICAL HISTORY: ILD, ABNORMAL LAB TEST RESULTS pain FINDINGS: LEFT FOOT Three views were obtained. There is a questionable fracture at the base of the fourth metatarsal. Joint spaces are maintained. No acute soft tissue abnormality is seen. IMPRESSION: Questionable fracture as above. Reviewed, Interpreted and Dictated by Dipak Garcia MD Transcribed by Mirna Tong Authenticated and [facility]
--- NOTE | 2025-01-21 10:22 | XR_ITS ---
FINAL REPORT CLINICAL HISTORY: ILD, ABNORMAL LAB TEST RESULTS pain FINDINGS: RIGHT FOOT Three views were obtained. There is no acute fracture or dislocation. There are degenerative changes of the metatarsophalangeal joint of the great toe. No acute soft tissue abnormality is seen. IMPRESSION: Degenerative changes with no acute bony abnormality. Reviewed, Interpreted and Dictated by Dipak Garcia MD Transcribed by Mirna Tong Authenticated and [facility]
--- NOTE | 2025-01-21 10:22 | XR_ITS ---
FINAL REPORT CLINICAL HISTORY: ILD, ABNORMAL LAB TEST RESULTS pain FINDINGS: RIGHT WRIST 2 views were obtained. There is no acute fracture or dislocation. Joint spaces are maintained. No acute soft tissue abnormality is seen. Vascular calcifications are noted. IMPRESSION: No acute bony abnormality. Reviewed, Interpreted and Dictated by Dipak Garcia MD Transcribed by Mirna Tong Authenticated and [facility]
== END 2025-01-21 23:59 | disposition home or self-care (01) ==
LOC: RAD 10:16
PROVIDERS: PCP Family Medicine; Visit Provider Student in an Organized Health Care Education/Training Program
DX: M19.042 Primary osteoarthritis, left hand (principal); R93.6 Abnormal findings on diagnostic imaging of limbs; M19.071 Primary osteoarthritis, right ankle and foot; M54.50 Low back pain, unspecified; G89.29 Other chronic pain; J84.9 Interstitial pulmonary disease, unspecified; R89.9 Unspecified abnormal finding in specimens from other organs, systems and tissues
CPT/HCPCS: 72190; 73100; 73120; 73630